=== PATIENT | female | born 1940 | race Hispanic/Latino ===

== ENCOUNTER 2021-07-23 13:49 | Inpatient (IN) | payer MEDICARE ==
[~2021-07-23] VITALS: Ht 157.5 cm; Wt 77.4 kg
[2021-07-23] VITALS (9 sets, daily range): BP systolic 68–148; BP diastolic 31–54
[2021-07-23 16:44] LABS: BASOPHILS % (AUTO) 0.5 % (0.0-5.0); EOSINOPHILS % (AUTO) 3.3 % (0.0-8.0); HEMATOCRIT 33.9 % (36-48); LYMPHOCYTES % (AUTO) 8.5 % (21.0-51.0); MEAN CORPUSCULAR HEMOGLOBIN 28.5 pg (27.0-33.0); MEAN CORPUSCULAR HGB CONC 31.3 g/dL (32.0-36.0); MEAN CORPUSCULAR VOLUME 91.1 fL (79-99); MONOCYTES % (AUTO) 6.7 % (3.0-13.0); NEUTROPHILS % (AUTO) 80.5 % (40.0-77.0); PLATELET COUNT (AUTO) 296 K/uL (130-400); RED BLOOD CELL COUNT(AUTO) 3.72 MIL/uL (4.00-5.50); RED CELL DISTRIBUTION WIDTH 15.9 % (11.0-15.5); WHITE BLOOD COUNT (AUTO) 13.5 K/uL (4.8-10.8)
[2021-07-23 16:56] LABS: INR 1.08 (0.85-1.15); PROTHROMBIN TIME 11.7 SEC (9.6-11.6)
[2021-07-23 16:57] LABS: CREATININE 1.1 mg/dL (0.5-1.5); PARTIAL THROMBOPLASTIN TIME 29.9 SEC (26.3-35.5); POTASSIUM 4.6 mmol/L (3.5-5.1)
[2021-07-23 17:01] LABS: B-TYPE NATRIURETIC PEPTIDE 71 pg/mL (0-100)
[2021-07-23 17:02] LABS: ALBUMIN 2.3 g/dL (3.5-5.0); BILIRUBIN,TOTAL 0.4 mg/dL (0.2-1.0); TOTAL PROTEIN, SERUM 5.9 g/dL (6.0-8.3)
[2021-07-23] MEDS ORDERED: DOPAMINE HCL 400 MG/D5%-WATER 250 ML IV PRN (18:00)
[2021-07-23 18:13] LABS: APPEARANCE,URINE Cloudy (CLEAR); BILIRUBIN,URINE Negative (NEGATIVE); COLOR,URINE Yellow (YELLOW); GLUCOSE, URINE (UA) Negative (NEGATIVE); KETONES,URINE Trace mg/dL (NEGATIVE); LEUKOCYTE ESTERASE ,URINE Moderate (NEGATIVE); NITRATE,URINE Negative (NEGATIVE); OCCULT BLOOD,URINE Small (NEGATIVE); PROTEIN,URINE Negative (NEGATIVE)
[2021-07-23 18:18] LABS: SQUAMOUS EPITHELIAL CELL,UR Few /HPF (0-2)
[2021-07-23 18:19] LABS: BACTERIA,URINE Moderate /HPF (None Seen)
[2021-07-23] MEDS ORDERED: ATOR10 PO (19:47)
[2021-07-23] MEDS ORDERED: METF-444 PO (19:47)
[2021-07-23] MEDS ORDERED: DONE10TA43 PO (19:47)
[2021-07-23] MEDS ORDERED: ACET325T51 PO (19:47)
[2021-07-23] MEDS ORDERED: ESCI20TA38 PO (19:47)
[2021-07-23] MEDS ORDERED: LISI10TA24 PO (19:47)
[2021-07-23] MEDS ORDERED: OLAN5TAB2 PO (19:47)
[2021-07-23] MEDS ORDERED: ONDANSETRON 4MG INJ IV PRN (20:30)
[2021-07-23] MEDS ORDERED: LACTATED RINGERS 1000ML 1,503 ML IV ONE (20:30)
[2021-07-23] MEDS: NOREPINEPHRINE 4MG/NS 250ML 250 ML IV SCH (20:59)
[2021-07-23] MEDS: FAMOTIDINE 20MG TAB PO SCH (21:00)
[2021-07-23] MEDS: INSULIN HUMULIN R 100 UNIT/ML 3ML SQ SCH (21:00)
[2021-07-23] MEDS: ZOSYN 3.375GM +NS 50ML IV SCH (21:30)
[2021-07-23] MEDS ORDERED: ACETAMINOPHEN 325 MG TAB PO PRN (22:00)
[2021-07-24] VITALS (22 sets, daily range): BP systolic 96–152; BP diastolic 33–115
[2021-07-24] MEDS: LACTATED RINGERS 1000ML 1,000 ML IV SCH ×3 (01:09→18:05)
[2021-07-24] MEDS: ACETAMINOPHEN 325 MG TAB PO PRN (03:22)
[2021-07-24] MEDS: ZOSYN 3.375GM +NS 50ML IV SCH ×3 (05:05→21:20)
[2021-07-24] MEDS: INSULIN HUMULIN R 100 UNIT/ML 3ML SQ SCH ×2 (06:39→11:30)
[2021-07-24 07:46] LABS: BASOPHILS % (AUTO) 0.6 % (0.0-5.0); EOSINOPHILS % (AUTO) 4.3 % (0.0-8.0); HEMATOCRIT 31.6 % (36-48); LYMPHOCYTES % (AUTO) 15.3 % (21.0-51.0); MEAN CORPUSCULAR HEMOGLOBIN 28.9 pg (27.0-33.0); MEAN CORPUSCULAR VOLUME 90.5 fL (79-99); MONOCYTES % (AUTO) 9.4 % (3.0-13.0); NEUTROPHILS % (AUTO) 70.1 % (40.0-77.0); PLATELET COUNT (AUTO) 288 K/uL (130-400); RED BLOOD CELL COUNT(AUTO) 3.49 MIL/uL (4.00-5.50); RED CELL DISTRIBUTION WIDTH 15.9 % (11.0-15.5); WHITE BLOOD COUNT (AUTO) 9.9 K/uL (4.8-10.8)
[2021-07-24 08:08] LABS: MAGNESIUM 1.6 mg/dL (1.80-2.40); PHOSPHORUS 3.1 mg/dL (2.5-4.9)
[2021-07-24 08:11] LABS: HEMOGLOBIN A1C 5.9 % (4.0-6.0)
[2021-07-24] MEDS: FAMOTIDINE 20MG TAB PO SCH (09:00)
[2021-07-24] MEDS: ENOXAPARIN SODIUM 30 MG/0.3 ML SQ SCH (09:00)
[2021-07-24] MEDS: NOREPINEPHRINE 4MG/NS 250ML 250 ML IV SCH (11:04)
[2021-07-24] MEDS: MIDODRINE HCL 5 MG TABLET PO SCH ×2 (15:30→21:20)
[2021-07-24] MEDS ORDERED: LACTULOSE 20 GM/30 ML UDCUP PO ONE (17:30)
[2021-07-24] MEDS: DONEPEZIL HCL 5 MG TAB PO SCH (21:20)
[2021-07-24] MEDS: ATORVASTATIN 10 MG TABLET PO SCH (21:20)
[2021-07-25] VITALS (36 sets, daily range): BP systolic 65–146; BP diastolic 37–118
[2021-07-25] MEDS ORDERED: TRAZODONE HCL 50 MG TAB ONE (01:37)
[2021-07-25] MEDS: LACTATED RINGERS 1000ML 1,000 ML IV SCH ×2 (06:00→17:25)
[2021-07-25] MEDS: ZOSYN 3.375GM +NS 50ML IV SCH (06:00)
[2021-07-25 06:22] LABS: HEMATOCRIT 31.9 % (36-48); MEAN CORPUSCULAR HEMOGLOBIN 28.6 pg (27.0-33.0); MEAN CORPUSCULAR HGB CONC 31.7 g/dL (32.0-36.0); MEAN CORPUSCULAR VOLUME 90.4 fL (79-99); RED BLOOD CELL COUNT(AUTO) 3.53 MIL/uL (4.00-5.50); RED CELL DISTRIBUTION WIDTH 16.2 % (11.0-15.5); WHITE BLOOD COUNT (AUTO) 8.6 K/uL (4.8-10.8)
[2021-07-25 06:51] LABS: % IRON SATURATION 19.8 % (22-44)
[2021-07-25 07:03] LABS: ALBUMIN 2.2 g/dL (3.5-5.0); PHOSPHORUS 2.8 mg/dL (2.5-4.9); POTASSIUM 4.2 mmol/L (3.5-5.1)
[2021-07-25 07:41] LABS: MAGNESIUM 1.5 mg/dL (1.80-2.40)
[2021-07-25] MEDS: MIDODRINE HCL 5 MG TABLET PO SCH ×3 (11:23→22:55)
[2021-07-25] MEDS: FAMOTIDINE 20MG TAB PO SCH (11:23)
[2021-07-25] MEDS: ENOXAPARIN SODIUM 30 MG/0.3 ML SQ SCH (11:24)
[2021-07-25] MEDS: MEROPENEM 1 GM VIAL IVP SCH ×2 (11:25→17:25)
[2021-07-25] MEDS: HALOPERIDOL INJ 5 MG/ML VIAL IV PRN ×2 (14:21→22:02)
[2021-07-25] MEDS: ATORVASTATIN 10 MG TABLET PO SCH (22:54)
[2021-07-25] MEDS: MAGNESIUM 2GM PREMIX 50ML 50 ML IV SCH (22:55)
[2021-07-25] MEDS: DONEPEZIL HCL 5 MG TAB PO SCH (22:55)
[2021-07-26] MEDS: MEROPENEM 1 GM VIAL IVP SCH ×3 (01:28→17:48)
[2021-07-26 03:00] VITALS: BP 147/62
[2021-07-26 07:30] VITALS: BP 139/35
[2021-07-26 08:45] LABS: HEMATOCRIT 29.7 % (36-48); MEAN CORPUSCULAR HGB CONC 31.6 g/dL (32.0-36.0); MEAN CORPUSCULAR VOLUME 91.7 fL (79-99); RED BLOOD CELL COUNT(AUTO) 3.24 MIL/uL (4.00-5.50); RED CELL DISTRIBUTION WIDTH 16.5 % (11.0-15.5); WHITE BLOOD COUNT (AUTO) 6.4 K/uL (4.8-10.8)
[2021-07-26] MEDS: LACTATED RINGERS 1000ML 1,000 ML IV SCH (08:55)
[2021-07-26 09:00] LABS: BILIRUBIN,TOTAL 0.4 mg/dL (0.2-1.0); CREATININE 0.9 mg/dL (0.5-1.5); POTASSIUM 4.1 mmol/L (3.5-5.1); TOTAL PROTEIN, SERUM 5.2 g/dL (6.0-8.3)
[2021-07-26] MEDS: FAMOTIDINE 20MG TAB PO SCH (10:18)
[2021-07-26] MEDS: MIDODRINE HCL 5 MG TABLET PO SCH ×3 (10:18→21:09)
[2021-07-26] MEDS: ENOXAPARIN SODIUM 30 MG/0.3 ML SQ SCH (10:19)
[2021-07-26 11:00] VITALS: BP 145/62
[2021-07-26 15:58] VITALS: BP 124/49
[2021-07-26 20:00] VITALS: BP 115/64
[2021-07-26] MEDS ORDERED: DEXTROSE 50%-WATER 50 ML DISP.SYRIN IV ONE (20:55)
[2021-07-26] MEDS: DONEPEZIL HCL 5 MG TAB PO SCH (21:09)
[2021-07-26] MEDS: ATORVASTATIN 10 MG TABLET PO SCH (21:09)
[2021-07-26] MEDS ORDERED: DEXTROSE 5%-WATER 1,000 ML IV ONE (22:46)
[2021-07-26] MEDS ORDERED: DEXTROSE 50%-WATER 50 ML DISP.SYRIN IV PRN (23:00)
[2021-07-26] MEDS: DEXTROSE 5%-WATER 1,000 ML IV SCH (23:00)
[2021-07-26] MEDS ORDERED: GLUCAGON 1MG KIT 1 MG ML IM PRN (23:00)
[2021-07-27] VITALS: BP 119/54
[2021-07-27] MEDS: MEROPENEM 1 GM VIAL IVP SCH ×3 (01:42→16:33)
[2021-07-27 04:00] VITALS: BP 117/55
[2021-07-27 05:07] LABS: BASOPHILS % (AUTO) 0.7 % (0.0-5.0); EOSINOPHILS % (AUTO) 12.8 % (0.0-8.0); HEMATOCRIT 32.2 % (36-48); LYMPHOCYTES % (AUTO) 16.3 % (21.0-51.0); MEAN CORPUSCULAR HEMOGLOBIN 28.9 pg (27.0-33.0); MEAN CORPUSCULAR HGB CONC 31.4 g/dL (32.0-36.0); MONOCYTES % (AUTO) 9.4 % (3.0-13.0); NEUTROPHILS % (AUTO) 60.4 % (40.0-77.0); PLATELET COUNT (AUTO) 267 K/uL (130-400); RED CELL DISTRIBUTION WIDTH 16.6 % (11.0-15.5); WHITE BLOOD COUNT (AUTO) 6.8 K/uL (4.8-10.8)
[2021-07-27 05:27] LABS: CREATININE 0.9 mg/dL (0.5-1.5); POTASSIUM 3.6 mmol/L (3.5-5.1)
[2021-07-27 08:00] VITALS: BP 127/66
[2021-07-27] MEDS: FAMOTIDINE 20MG TAB PO SCH (09:45)
[2021-07-27] MEDS: MIDODRINE HCL 5 MG TABLET PO SCH ×3 (09:45→21:36)
[2021-07-27] MEDS: ENOXAPARIN SODIUM 30 MG/0.3 ML SQ SCH (09:46)
[2021-07-27 12:00] VITALS: BP 120/55
[2021-07-27 16:00] VITALS: BP 123/56
[2021-07-27] MEDS: DEXTROSE 5%-WATER 1,000 ML IV SCH (16:34)
[2021-07-27 19:46] VITALS: BP 104/41
[2021-07-27] MEDS: ATORVASTATIN 10 MG TABLET PO SCH (21:36)
[2021-07-27] MEDS: DONEPEZIL HCL 5 MG TAB PO SCH (21:36)
[2021-07-28] VITALS (8 sets, daily range): BP systolic 96–115; BP diastolic 38–95
[2021-07-28] MEDS: MEROPENEM 1 GM VIAL IVP SCH ×3 (01:08→17:02)
[2021-07-28 05:05] LABS: BASOPHILS % (AUTO) 0.4 % (0.0-5.0); HEMATOCRIT 29.5 % (36-48); LYMPHOCYTES % (AUTO) 13.6 % (21.0-51.0); MEAN CORPUSCULAR HGB CONC 32.5 g/dL (32.0-36.0); MEAN CORPUSCULAR VOLUME 89.1 fL (79-99); NEUTROPHILS % (AUTO) 67.6 % (40.0-77.0); PLATELET COUNT (AUTO) 313 K/uL (130-400); RED BLOOD CELL COUNT(AUTO) 3.31 MIL/uL (4.00-5.50); RED CELL DISTRIBUTION WIDTH 16.8 % (11.0-15.5); WHITE BLOOD COUNT (AUTO) 8.4 K/uL (4.8-10.8)
[2021-07-28 05:23] LABS: CREATININE 0.8 mg/dL (0.5-1.5); POTASSIUM 3.7 mmol/L (3.5-5.1)
[2021-07-28] MEDS: MIDODRINE HCL 5 MG TABLET PO SCH ×3 (09:00→21:13)
[2021-07-28] MEDS: FAMOTIDINE 20MG TAB PO SCH (10:41)
[2021-07-28] MEDS: ENOXAPARIN SODIUM 30 MG/0.3 ML SQ SCH (10:42)
[2021-07-28] MEDS: DONEPEZIL HCL 5 MG TAB PO SCH (21:13)
[2021-07-28] MEDS: ATORVASTATIN 10 MG TABLET PO SCH (21:13)
[2021-07-29] VITALS (7 sets, daily range): BP systolic 90–143; BP diastolic 44–64
[2021-07-29] MEDS: MEROPENEM 1 GM VIAL IVP SCH ×3 (01:39→16:14)
[2021-07-29 07:23] LABS: BASOPHILS % (AUTO) 0.3 % (0.0-5.0); EOSINOPHILS % (AUTO) 4.2 % (0.0-8.0); HEMATOCRIT 30.7 % (36-48); MEAN CORPUSCULAR HEMOGLOBIN 28.7 pg (27.0-33.0); MEAN CORPUSCULAR HGB CONC 31.9 g/dL (32.0-36.0); MEAN CORPUSCULAR VOLUME 89.8 fL (79-99); MONOCYTES % (AUTO) 7.1 % (3.0-13.0); PLATELET COUNT (AUTO) 270 K/uL (130-400); RED BLOOD CELL COUNT(AUTO) 3.42 MIL/uL (4.00-5.50); WHITE BLOOD COUNT (AUTO) 11.2 K/uL (4.8-10.8)
[2021-07-29 07:35] LABS: CREATININE 0.7 mg/dL (0.5-1.5); POTASSIUM 3.7 mmol/L (3.5-5.1)
[2021-07-29] MEDS: FAMOTIDINE 20MG TAB PO SCH (09:36)
[2021-07-29] MEDS: ENOXAPARIN SODIUM 30 MG/0.3 ML SQ SCH (09:36)
[2021-07-29] MEDS: MIDODRINE HCL 5 MG TABLET PO SCH ×3 (09:36→20:15)
[2021-07-29] MEDS ORDERED: ENOXAPARIN SODIUM 40 MG/0.4 ML SYRINGE SQ ONE (16:30)
[2021-07-29] MEDS: ENOXAPARIN SODIUM 80 MG/0.8 ML SQ SCH (20:15)
[2021-07-29] MEDS: ATORVASTATIN 10 MG TABLET PO SCH (20:15)
[2021-07-29] MEDS: DONEPEZIL HCL 5 MG TAB PO SCH (20:15)
[2021-07-29] MEDS: ACETAMINOPHEN 325 MG TAB PO PRN (20:16)
[2021-07-30] MEDS: MEROPENEM 1 GM VIAL IVP SCH ×3 (00:02→18:07)
[2021-07-30 01:21] VITALS: BP_SYST 143
[2021-07-30] MEDS ORDERED: HALOPERIDOL INJ 5 MG/ML VIAL IV PRN (02:00)
[2021-07-30 04:09] VITALS: BP 126/51
[2021-07-30 06:38] LABS: BASOPHILS % (AUTO) 0.4 % (0.0-5.0); EOSINOPHILS % (AUTO) 7.5 % (0.0-8.0); HEMATOCRIT 33.6 % (36-48); LYMPHOCYTES % (AUTO) 10.5 % (21.0-51.0); MEAN CORPUSCULAR HEMOGLOBIN 28.5 pg (27.0-33.0); MEAN CORPUSCULAR HGB CONC 31.8 g/dL (32.0-36.0); MEAN CORPUSCULAR VOLUME 89.6 fL (79-99); MONOCYTES % (AUTO) 6.5 % (3.0-13.0); NEUTROPHILS % (AUTO) 74.7 % (40.0-77.0); PLATELET COUNT (AUTO) 299 K/uL (130-400); RED BLOOD CELL COUNT(AUTO) 3.75 MIL/uL (4.00-5.50); RED CELL DISTRIBUTION WIDTH 17.1 % (11.0-15.5)
[2021-07-30 06:56] LABS: ALBUMIN 1.9 g/dL (3.5-5.0); BILIRUBIN,TOTAL 0.4 mg/dL (0.2-1.0); CREATININE 0.8 mg/dL (0.5-1.5); POTASSIUM 3.8 mmol/L (3.5-5.1); TOTAL PROTEIN, SERUM 5.4 g/dL (6.0-8.3)
[2021-07-30 08:00] VITALS: BP 127/41
[2021-07-30] MEDS: FAMOTIDINE 20MG TAB PO SCH (10:31)
[2021-07-30] MEDS: MIDODRINE HCL 5 MG TABLET PO SCH ×3 (10:31→21:44)
[2021-07-30] MEDS: ENOXAPARIN SODIUM 80 MG/0.8 ML SQ SCH ×2 (10:31→21:45)
[2021-07-30 11:45] VITALS: BP 129/56
[2021-07-30 16:00] VITALS: BP 119/46
[2021-07-30 19:00] VITALS: BP 124/49
[2021-07-30] MEDS: DONEPEZIL HCL 5 MG TAB PO SCH (21:44)
[2021-07-30] MEDS: ATORVASTATIN 10 MG TABLET PO SCH (21:44)
[2021-07-31] VITALS: BP 96/41
[2021-07-31] MEDS: MEROPENEM 1 GM VIAL IVP SCH ×3 (01:51→16:51)
[2021-07-31] MEDS ORDERED: ACETAMINOPHEN WITH CODEINE 1 TAB TAB ONE (01:55)
[2021-07-31 04:00] VITALS: BP 126/54
[2021-07-31 05:49] LABS: BASOPHILS % (AUTO) 0.3 % (0.0-5.0); EOSINOPHILS % (AUTO) 7.8 % (0.0-8.0); HEMATOCRIT 33.9 % (36-48); LYMPHOCYTES % (AUTO) 10.1 % (21.0-51.0); MEAN CORPUSCULAR HEMOGLOBIN 28.8 pg (27.0-33.0); MEAN CORPUSCULAR HGB CONC 31.6 g/dL (32.0-36.0); MEAN CORPUSCULAR VOLUME 91.1 fL (79-99); MONOCYTES % (AUTO) 6.3 % (3.0-13.0); NEUTROPHILS % (AUTO) 75.2 % (40.0-77.0); PLATELET COUNT (AUTO) 290 K/uL (130-400); RED BLOOD CELL COUNT(AUTO) 3.72 MIL/uL (4.00-5.50); RED CELL DISTRIBUTION WIDTH 17.2 % (11.0-15.5); WHITE BLOOD COUNT (AUTO) 11.7 K/uL (4.8-10.8)
[2021-07-31 06:31] LABS: CREATININE 0.8 mg/dL (0.5-1.5); MAGNESIUM 1.5 mg/dL (1.80-2.40)
[2021-07-31] MEDS: MAGNESIUM 2GM PREMIX 50ML 50 ML IV SCH (07:00)
[2021-07-31 07:47] VITALS: BP 124/48
[2021-07-31] MEDS ORDERED: CITALOPRAM 20 MG TABLET PO SCH (09:00)
[2021-07-31] MEDS ORDERED: OLANZAPINE ODT 5 MG TAB PO SCH (09:00)
[2021-07-31] MEDS: FAMOTIDINE 20MG TAB PO SCH (09:08)
[2021-07-31] MEDS: MIDODRINE HCL 5 MG TABLET PO SCH ×3 (09:09→20:16)
[2021-07-31] MEDS ORDERED: OLANZAPINE 5 MG TAB PO SCH (10:30)
[2021-07-31] MEDS: APIXABAN 5 MG TABLET PO SCH ×2 (10:42→20:15)
[2021-07-31 12:07] VITALS: BP 128/47
[2021-07-31 16:07] VITALS: BP 114/40
[2021-07-31 19:00] VITALS: BP 119/37
[2021-07-31] MEDS: ATORVASTATIN 10 MG TABLET PO SCH (20:15)
[2021-07-31] MEDS: DONEPEZIL HCL 5 MG TAB PO SCH (20:16)
== END 2021-07-31 20:45 | DRG 871 ==
LOC: EDH 13:49 → EDHIP 20:19 → 2CH 07-25 08:41 → 4CH 07-25 21:41
PROVIDERS: ADMIT Internal Medicine; ATTEND Internal Medicine
DX: A41.50 Gram-negative sepsis, unspecified (principal); R65.21 Severe sepsis with septic shock; E43 Unspecified severe protein-calorie malnutrition; N30.00 Acute cystitis without hematuria; G93.40 Encephalopathy, unspecified; D68.59 Other primary thrombophilia; Z16.24 Resistance to multiple antibiotics; Z16.12 Extended spectrum beta lactamase (ESBL) resistance; I82.B11 Acute embolism and thrombosis of right subclavian vein; I10 Essential (primary) hypertension; E86.1 Hypovolemia; F32.9 Major depressive disorder, single episode, unspecified; G30.9 Alzheimer's disease, unspecified; F02.80 Dementia in other diseases classified elsewhere, unspecified severity, without behavioral disturbance, psychotic disturbance, mood disturbance, and anxiety; F20.9 Schizophrenia, unspecified; E78.00 Pure hypercholesterolemia, unspecified; E78.5 Hyperlipidemia, unspecified; E11.649 Type 2 diabetes mellitus with hypoglycemia without coma; D64.9 Anemia, unspecified; E83.42 Hypomagnesemia; R53.81 Other malaise; B96.20 Unspecified Escherichia coli [E. coli] as the cause of diseases classified elsewhere; E66.9 Obesity, unspecified; Z68.31 Body mass index [BMI] 31.0-31.9, adult; Z20.822 Contact with and (suspected) exposure to COVID-19; Z74.01 Bed confinement status; Z79.01 Long term (current) use of anticoagulants; Z83.3 Family history of diabetes mellitus
CPT/HCPCS: 36415; 70450; 71045; 76770; 80048; 80053; 80061; 81001; 82040; 82550; 82607; 82728; 82746; 82948; 83036; 83540; 83550; 83605; 83735; 83880; 84100; 84145; 84484; 85025; 85027; 85610; 85730; 86140; 87040; 87077; 87088; 87186; 87635; 92526; 92610; 93005; 93970; 97039; G0378; J1630; J1650; J2185; J2543; J3475; J3490; J7070; J7120

== ENCOUNTER 2023-08-08 11:29 | Emergency (ER) | payer MEDICARE ==
[~2023-08-08] VITALS: Ht 162.6 cm; Wt 65.8 kg
[~2023-08-08 11:29] MED LIST: ACET325C6 PO; ACET325T51 PO; ATOR10TA69 PO; DIVA250T4 PO; FAMO-136 PO; HYDR28.32 TP; IRON TABLET PO; MEMA10TA11 PO; MIDO5TAB4 PO; MIRT-118 PO; MULT-1367 PO
[2023-08-08] MEDS ORDERED: DIATR MEGLU/DIATRIZOATE SODIUM 30 ML BOTTLE ONE (11:52)
[2023-08-08 13:26] VITALS: BP 152/133; PULSE 80; RESP 16; O2SAT 100
== END 2023-08-08 14:01 | disposition home or self-care (01) ==
LOC: EDH 11:29
DX: K94.23 Gastrostomy malfunction (principal); E11.9 Type 2 diabetes mellitus without complications; F03.90 Unspecified dementia, unspecified severity, without behavioral disturbance, psychotic disturbance, mood disturbance, and anxiety; K21.9 Gastro-esophageal reflux disease without esophagitis; F41.9 Anxiety disorder, unspecified; F20.9 Schizophrenia, unspecified
CPT/HCPCS: 99284; 43762; 74018; Q9963

== ENCOUNTER 2023-12-28 12:17 | Inpatient (IN) | payer MEDICARE ==
[~2023-12-28] VITALS: Ht 154.9 cm; Wt 76.7 kg
[2023-12-28 12:53] LABS: BASOPHILS # (AUTO) 0.04 K/uL (0.00-0.20); BASOPHILS % (AUTO) 0.3 % (0.0-5.0); EOSINOPHILS # (AUTO) 0.23 K/uL (0.00-0.70); EOSINOPHILS % (AUTO) 1.5 % (0.0-8.0); HEMATOCRIT 39.4 % (36-48); IMMATURE GRANULOCYTE ABSOLUTE 0.14 K/uL (0-1); LYMPHOCYTES # (AUTO) 1.6 K/uL (1.0-4.8); LYMPHOCYTES % (AUTO) 10.4 % (21.0-51.0); MEAN CORPUSCULAR HEMOGLOBIN 30.3 pg (27.0-33.0); MEAN CORPUSCULAR HGB CONC 31.2 g/dL (32.0-36.0); MONOCYTES # (AUTO) 0.7 K/uL (0.1-1.0); MONOCYTES % (AUTO) 4.6 % (3.0-13.0); NEUTROPHILS # (AUTO) 12.8 K/uL (1.8-7.7); NEUTROPHILS % (AUTO) 82.3 % (40.0-77.0); NUCLEATED RED BLOOD CELLS 0.3 % (0.0-0.19); PLATELET COUNT (AUTO) 275 K/uL (130-400); RED BLOOD CELL COUNT(AUTO) 4.06 MIL/uL (4.00-5.50); RED CELL DISTRIBUTION WIDTH 15.9 % (11.0-15.5); WHITE BLOOD COUNT (AUTO) 15.5 K/uL (4.8-10.8)
[2023-12-28 13:06] LABS: INR 0.98 (0.85-1.15); PROTHROMBIN TIME 11.4 SEC (9.6-11.6)
[2023-12-28 13:07] LABS: PARTIAL THROMBOPLASTIN TIME 25.7 SEC (26.3-35.5)
[2023-12-28 13:08] LABS: ALBUMIN 1.8 g/dL (3.5-5.0); BILIRUBIN,TOTAL 0.4 mg/dL (0.2-1.0); CREATININE 1.2 mg/dL (0.5-1.5); POTASSIUM 3.7 mmol/L (3.5-5.1); TOTAL PROTEIN, SERUM 6.2 g/dL (6.0-8.3)
[2023-12-28] MEDS: 0.9%NACL 1000ML 1,000 ML IV ONE (13:13)
[2023-12-28] MEDS: ZOSYN 3.375GM +NS 50ML IV ONE (16:22)
[2023-12-28] MEDS: VANCOMYCIN KIT 1 GM/250 ML IV.KIT IV ONE (16:23)
[2023-12-28] MEDS: LACTATED RINGERS 1000ML 1,000 ML IV SCH ×2 (16:51→18:58)
[2023-12-28] MEDS ORDERED: GLUCAGON 1MG KIT 1 MG ML IM PRN (17:00)
[2023-12-28] MEDS ORDERED: ONDANSETRON 4MG INJ IV PRN (17:00)
[2023-12-28] MEDS ORDERED: ACETAMINOPHEN 325 MG TAB PO PRN (17:00)
[2023-12-28] MEDS ORDERED: DEXTROSE 50%-WATER 50 ML DISP.SYRIN IV PRN (17:00)
[2023-12-28 18:23] LABS: HEMOGLOBIN A1C 8.3 % (4.0-6.0)
[2023-12-28 18:45] LABS: ABG BASE EXCESS 9.1 mmol/L (-2.0-3.0); ABG HCO3 33.1 mmol/L (21.0-28.0); ABG OXYGEN SATURATION 99.9 % (95.0-99.0); ABG PCO2 42 mmHg (32-45); ABG PH 7.511 (7.35-7.450); DEVICE COMMENT RR; PO2, ARTERIAL BG 471.1 mmHg (83.0-108.0); VENT MODE, BG NONR (ROOM AIR)
[2023-12-28] MEDS: INSULIN HUMULIN R 100 UNIT/ML 3ML SQ SCH (21:00)
[2023-12-28] MEDS: FAMOTIDINE 20MG VIAL IV SCH (21:10)
[2023-12-28] MEDS: HEPARIN 5,000 UNIT VIAL SQ SCH (21:10)
[2023-12-28 22:01] LABS: APPEARANCE,URINE TURBID (CLEAR); BILIRUBIN,URINE NEGATIVE (NEGATIVE); COLOR,URINE YELLOW (YELLOW); GLUCOSE, URINE (UA) NEGATIVE (NEGATIVE); KETONES,URINE NEGATIVE (NEGATIVE); LEUKOCYTE ESTERASE ,URINE 500 Leu/uL (NEGATIVE); NITRATE,URINE 1+ (NEGATIVE); OCCULT BLOOD,URINE MODERATE (NEGATIVE); PROTEIN,URINE 100 mg/dL (NEGATIVE); UROBILINOGEN,URINE 0.2 mg/dL (0.2-1.0)
[2023-12-28 22:02] LABS: ADD UA MICROSCOPIC YES
[2023-12-28 22:06] LABS: BACTERIA,URINE MOD /HPF (None Seen); MUCUS,URINE RARE LPF (None Seen); RBC,URINE 26-50 /HPF (0-1); SQUAMOUS EPITHELIAL CELL,UR FEW /HPF (0-2); TRIPLE PHOSPHATE CRYSTAL,UR FEW /LPF (None Seen); UNCLASSIFIED CRYSTAL 11 /HPF (None Seen); WBC CLUMP FEW /HPF (0-1); WBC,URINE 26-50 /HPF (0-1); YEAST,URINE BUDDING FEW /HPF (None Seen)
[2023-12-28] MEDS ORDERED: MAGN400T51 PEG (23:22)
[2023-12-28] MEDS ORDERED: DIVA125T2 PEG (23:22)
[2023-12-28] MEDS ORDERED: MEMA10TA55 PEG (23:22)
[2023-12-28] MEDS ORDERED: FERR220E10 PEG (23:22)
[2023-12-28] MEDS ORDERED: POLY17PO4 PEG (23:22)
[2023-12-28] MEDS ORDERED: ASCO500P18 PEG (23:22)
[2023-12-28] MEDS ORDERED: IPRA3AMP24 IH (23:22)
[2023-12-28] MEDS ORDERED: ACET-2247 PEG ×2 (23:22)
[2023-12-28] MEDS ORDERED: SERT50TA PEG (23:22)
[2023-12-28] MEDS ORDERED: GUAI100S13 PEG (23:22)
[2023-12-28] MEDS ORDERED: SENN8.6T32 PEG (23:22)
[2023-12-28] MEDS ORDERED: LACT10SO5 PEG (23:22)
[2023-12-28] MEDS ORDERED: INSU3INS3 SQ (23:22)
[2023-12-28] MEDS ORDERED: FAMO20TA8 PEG (23:22)
[2023-12-28] MEDS ORDERED: MULT9LIQ6 PEG (23:22)
[2023-12-28] MEDS ORDERED: GUAI5SYR PEG (23:22)
[2023-12-28] MEDS ORDERED: INSU100C14 SQ (23:22)
[2023-12-29] VITALS (8 sets, daily range): BP systolic 112–145; BP diastolic 49–79; PULSE 65–82; RESP 18–22; O2SAT 100
[2023-12-29] MEDS: ZOSYN 3.375GM+NS 50ML 50 ML IV SCH (00:05)
[2023-12-29 11:20] LABS: POTASSIUM 3.5 mmol/L (3.5-5.1)
[2023-12-29 15:22] LABS: INR 0.98 (0.85-1.15); PROTHROMBIN TIME 11.4 SEC (9.6-11.6)
[2023-12-29 15:24] LABS: PARTIAL THROMBOPLASTIN TIME 29.9 SEC (26.3-35.5)
[2023-12-29] MEDS: DEXTROSE 5%-WATER 1,000 ML IV SCH (15:43)
[2023-12-29] MEDS: ENOXAPARIN SODIUM 80 MG/0.8 ML SQ SCH (22:18)
[2023-12-29 23:48] LABS: INFLUENZA TYPE A Negative For Type A (NEGATIVE); INFLUENZA TYPE B Negative For Type B (NEGATIVE)
[2023-12-29 23:49] LABS: SARS-CoV-2, RNA, NAAT NEGATIVE SARS CoV-2 (NEGATIVE)
[2023-12-30] VITALS (9 sets, daily range): BP systolic 112–164; BP diastolic 49–84; PULSE 68–84; RESP 16–18; O2SAT 98–100
[2023-12-30] MEDS: INSULIN HUMULIN R 100 UNIT/ML 3ML SQ SCH (05:00)
[2023-12-30 06:19] LABS: HEMATOCRIT 33.4 % (36-48); MEAN CORPUSCULAR HEMOGLOBIN 29.8 pg (27.0-33.0); MEAN CORPUSCULAR HGB CONC 30.8 g/dL (32.0-36.0); MEAN CORPUSCULAR VOLUME 96.5 fL (79-99); PLATELET COUNT (AUTO) 230 K/uL (130-400); RED BLOOD CELL COUNT(AUTO) 3.46 MIL/uL (4.00-5.50); RED CELL DISTRIBUTION WIDTH 15.6 % (11.0-15.5); WHITE BLOOD COUNT (AUTO) 10.8 K/uL (4.8-10.8)
[2023-12-30 06:33] LABS: ALBUMIN 1.6 g/dL (3.5-5.0); BILIRUBIN,TOTAL 0.7 mg/dL (0.2-1.0); CREATININE 0.8 mg/dL (0.5-1.5); POTASSIUM 3.2 mmol/L (3.5-5.1); TOTAL PROTEIN, SERUM 5.7 g/dL (6.0-8.3)
[2023-12-30] MEDS ORDERED: POLYETHYLENE GLYCOL 3350 17 GM POWD.PACK PEG PRN (10:30)
[2023-12-30] MEDS: POTASSIUM CHLORIDE 10% ELIXIR 20 MEQ/15 ML UDCUP ONE ×2 (10:46→16:27)
[2023-12-30] MEDS: CEFTRIAXONE 2GM VIAL IVPB SCH (16:27)
[2023-12-30] MEDS ORDERED: NON-FORMULARY MEDICATION 1 EACH (Memantine HCl 10 MG) PEG SCH (21:00)
[2023-12-30] MEDS ORDERED: NON-FORMULARY MEDICATION 1 EACH (Ascorbic Acid (Vitamin C) 500 MG) PEG SCH (21:00)
[2023-12-30] MEDS: ASCORBIC ACID 500 MG TAB PEG SCH (21:24)
[2023-12-30] MEDS: SENNOSIDES 8.6 MG TABLET PEG SCH (21:24)
[2023-12-30] MEDS: MEMANTINE HCL 5 MG TABLET PEG SCH (21:25)
[2023-12-31] VITALS (8 sets, daily range): BP systolic 108–133; BP diastolic 45–80; PULSE 63–75; RESP 15–18; O2SAT 100
[2023-12-31 05:24] LABS: HEMATOCRIT 30.2 % (36-48); MEAN CORPUSCULAR HEMOGLOBIN 30.4 pg (27.0-33.0); MEAN CORPUSCULAR HGB CONC 31.5 g/dL (32.0-36.0); MEAN CORPUSCULAR VOLUME 96.8 fL (79-99); RED BLOOD CELL COUNT(AUTO) 3.12 MIL/uL (4.00-5.50); RED CELL DISTRIBUTION WIDTH 15.6 % (11.0-15.5); WHITE BLOOD COUNT (AUTO) 9.1 K/uL (4.8-10.8)
[2023-12-31 05:50] LABS: ALBUMIN 1.5 g/dL (3.5-5.0); BILIRUBIN,TOTAL 0.3 mg/dL (0.2-1.0); CREATININE 0.8 mg/dL (0.5-1.5); POTASSIUM 3.4 mmol/L (3.5-5.1); TOTAL PROTEIN, SERUM 5.3 g/dL (6.0-8.3)
[2023-12-31 06:00] LABS: MAGNESIUM 1.9 mg/dL (1.80-2.40)
[2023-12-31] MEDS ORDERED: FERROUS FUM PEG SCH (09:00)
[2023-12-31] MEDS ORDERED: FERROUS SULFATE 220 MG PEG SCH (09:00)
[2023-12-31] MEDS ORDERED: MAGNESIUM OXIDE 400 MG PEG SCH (09:00)
[2023-12-31] MEDS: MULTIVITS W MIN PEG SCH (09:00)
[2023-12-31] MEDS ORDERED: [UNRECOGNIZED DRUG - OTHER] PEG SCH (09:00)
[2023-12-31] MEDS ORDERED: NON-FORMULARY MEDICATION 1 EACH (Lactulose 30 ML) PEG SCH (09:00)
[2023-12-31] MEDS ORDERED: MULTIVIT PEG SCH (09:00)
[2023-12-31] MEDS ORDERED: MINERALS PEG SCH (09:00)
[2023-12-31] MEDS: FERROUS GLUC PEG SCH (09:00)
[2023-12-31] MEDS: LACTULOSE 20 GM/30 ML UDCUP PEG SCH (10:07)
[2023-12-31] MEDS: FERROUS SULFATE 300 MG/5 ML LIQ UDCUP PEG SCH (10:07)
[2023-12-31] MEDS: SERTRALINE HCL 50 MG TABLET PEG SCH (10:08)
[2023-12-31] MEDS: FAMOTIDINE 20MG TAB PEG SCH (10:08)
[2023-12-31] MEDS: KCL 20 MEQ ERTAB PO ONE (15:55)
[2024-01-01] VITALS (7 sets, daily range): BP systolic 103–136; BP diastolic 42–69; PULSE 65–75; RESP 16–20; O2SAT 99–100
[2024-01-01 04:14] LABS: HEMATOCRIT 28.9 % (36-48); MEAN CORPUSCULAR HEMOGLOBIN 30.4 pg (27.0-33.0); MEAN CORPUSCULAR HGB CONC 32.5 g/dL (32.0-36.0); MEAN CORPUSCULAR VOLUME 93.5 fL (79-99); NUCLEATED RED BLOOD CELLS 0.2 % (0.0-0.19); RED BLOOD CELL COUNT(AUTO) 3.09 MIL/uL (4.00-5.50); RED CELL DISTRIBUTION WIDTH 15.7 % (11.0-15.5); WHITE BLOOD COUNT (AUTO) 9.5 K/uL (4.8-10.8)
[2024-01-01 04:29] LABS: ALBUMIN 1.6 g/dL (3.5-5.0); BILIRUBIN,TOTAL 0.2 mg/dL (0.2-1.0); CREATININE 0.8 mg/dL (0.5-1.5); POTASSIUM 3.7 mmol/L (3.5-5.1); TOTAL PROTEIN, SERUM 5.4 g/dL (6.0-8.3)
[2024-01-02] VITALS (7 sets, daily range): BP systolic 102–138; BP diastolic 59–71; PULSE 59–80; RESP 18–22; O2SAT 100
[2024-01-02 04:18] LABS: ALBUMIN 1.6 g/dL (3.5-5.0); BILIRUBIN,TOTAL 0.2 mg/dL (0.2-1.0); CREATININE 0.7 mg/dL (0.5-1.5); POTASSIUM 3.5 mmol/L (3.5-5.1); TOTAL PROTEIN, SERUM 5.6 g/dL (6.0-8.3)
[2024-01-02 04:59] LABS: HEMATOCRIT 28.9 % (36-48); MEAN CORPUSCULAR HEMOGLOBIN 30.1 pg (27.0-33.0); MEAN CORPUSCULAR HGB CONC 32.2 g/dL (32.0-36.0); MEAN CORPUSCULAR VOLUME 93.5 fL (79-99); NUCLEATED RED BLOOD CELLS 0.2 % (0.0-0.19); RED BLOOD CELL COUNT(AUTO) 3.09 MIL/uL (4.00-5.50); RED CELL DISTRIBUTION WIDTH 16.1 % (11.0-15.5); WHITE BLOOD COUNT (AUTO) 10.4 K/uL (4.8-10.8)
[2024-01-02] MEDS: KCL 20 MEQ ERTAB PO ONE (10:59)
[2024-01-03] VITALS (11 sets, daily range): BP systolic 129–161; BP diastolic 66–99; PULSE 71–84; RESP 18; O2SAT 96–100
[2024-01-03 05:31] LABS: HEMATOCRIT 29.2 % (36-48); MEAN CORPUSCULAR HEMOGLOBIN 30.9 pg (27.0-33.0); MEAN CORPUSCULAR HGB CONC 32.2 g/dL (32.0-36.0); MEAN CORPUSCULAR VOLUME 96.1 fL (79-99); NUCLEATED RED BLOOD CELLS 0.2 % (0.0-0.19); RED BLOOD CELL COUNT(AUTO) 3.04 MIL/uL (4.00-5.50); RED CELL DISTRIBUTION WIDTH 16.7 % (11.0-15.5); WHITE BLOOD COUNT (AUTO) 9.1 K/uL (4.8-10.8)
[2024-01-03 05:48] LABS: ALBUMIN 1.6 g/dL (3.5-5.0); BILIRUBIN,TOTAL 0.2 mg/dL (0.2-1.0); CREATININE 0.6 mg/dL (0.5-1.5); MAGNESIUM 1.9 mg/dL (1.80-2.40); POTASSIUM 3.7 mmol/L (3.5-5.1); TOTAL PROTEIN, SERUM 5.7 g/dL (6.0-8.3)
[2024-01-03] MEDS ORDERED: KCL 20 MEQ ERTAB PO PRN (11:30)
[2024-01-03] MEDS: VALPROATE SOD 250 MG/5 ML (PO) PEG ONE (11:49)
[2024-01-03] MEDS: POTASSIUM CHLORIDE 10% ELIXIR 20 MEQ/15 ML UDCUP PO PRN (11:54)
[2024-01-03] MEDS: MAGNESIUM 2GM PREMIX 50ML 50 ML IV PRN (11:54)
[2024-01-03] MEDS ORDERED: PHARMACY COMMUNICATION MISC SCH (12:30)
[2024-01-03] MEDS: VALPROATE SOD 250 MG/5 ML (PO) PEG SCH (20:48)
[2024-01-04] VITALS (14 sets, daily range): BP systolic 100–145; BP diastolic 43–74; PULSE 65–115; RESP 16–18; O2SAT 96–100
[2024-01-04 03:45] LABS: HEMATOCRIT 28.3 % (36-48); MEAN CORPUSCULAR HEMOGLOBIN 30.7 pg (27.0-33.0); MEAN CORPUSCULAR HGB CONC 31.8 g/dL (32.0-36.0); MEAN CORPUSCULAR VOLUME 96.6 fL (79-99); NUCLEATED RED BLOOD CELLS 0.2 % (0.0-0.19); RED BLOOD CELL COUNT(AUTO) 2.93 MIL/uL (4.00-5.50); RED CELL DISTRIBUTION WIDTH 16.9 % (11.0-15.5); WHITE BLOOD COUNT (AUTO) 9.5 K/uL (4.8-10.8)
[2024-01-04 04:05] LABS: ALBUMIN 1.5 g/dL (3.5-5.0); BILIRUBIN,TOTAL 0.1 mg/dL (0.2-1.0); CREATININE 0.6 mg/dL (0.5-1.5); MAGNESIUM 2.2 mg/dL (1.80-2.40); POTASSIUM 3.6 mmol/L (3.5-5.1); TOTAL PROTEIN, SERUM 5.4 g/dL (6.0-8.3)
[2024-01-04] MEDS: POTASSIUM CHLORIDE 20MEQ/100ML 100 ML IV PRN (05:48)
[2024-01-04] MEDS ORDERED: LIDOCAINE HCL 1% MDV 50ML VIAL ONE (13:09)
[2024-01-04] MEDS ORDERED: IOHEXOL-350 50ML VIAL IV ONE (13:38)
[2024-01-04] MEDS ORDERED: MIDAZOLAM HCL 1 MG/ML 2ML VIAL ONE (13:43)
[2024-01-04 19:55] LABS: INR 0.94 (0.85-1.15)
[2024-01-05 00:01] VITALS: BP 124/70; PULSE 80; RESP 18
[2024-01-05 04:04] LABS: BASOPHILS # (AUTO) 0.02 K/uL (0.00-0.20); BASOPHILS % (AUTO) 0.2 % (0.0-5.0); EOSINOPHILS # (AUTO) 0.27 K/uL (0.00-0.70); EOSINOPHILS % (AUTO) 3.2 % (0.0-8.0); HEMATOCRIT 30.2 % (36-48); IMMATURE GRANULOCYTE ABSOLUTE 0.12 K/uL (0-1); LYMPHOCYTES # (AUTO) 1.3 K/uL (1.0-4.8); LYMPHOCYTES % (AUTO) 15.1 % (21.0-51.0); MEAN CORPUSCULAR HEMOGLOBIN 30.4 pg (27.0-33.0); MEAN CORPUSCULAR HGB CONC 31.5 g/dL (32.0-36.0); MEAN CORPUSCULAR VOLUME 96.5 fL (79-99); MONOCYTES # (AUTO) 0.6 K/uL (0.1-1.0); NEUTROPHILS # (AUTO) 6.3 K/uL (1.8-7.7); NEUTROPHILS % (AUTO) 73.1 % (40.0-77.0); NUCLEATED RED BLOOD CELLS 0.5 % (0.0-0.19); PLATELET COUNT (AUTO) 232 K/uL (130-400); RED BLOOD CELL COUNT(AUTO) 3.13 MIL/uL (4.00-5.50); RED CELL DISTRIBUTION WIDTH 17.3 % (11.0-15.5); WHITE BLOOD COUNT (AUTO) 8.6 K/uL (4.8-10.8)
[2024-01-05 04:08] VITALS: BP 131/63; PULSE 71; RESP 18
[2024-01-05 04:20] LABS: CREATININE 0.6 mg/dL (0.5-1.5); MAGNESIUM 1.8 mg/dL (1.80-2.40); PHOSPHORUS 2.3 mg/dL (2.5-4.9); POTASSIUM 3.5 mmol/L (3.5-5.1)
[2024-01-05 07:00] VITALS: O2SAT 96
[2024-01-05 07:05] VITALS: BP 133/65; PULSE 68; RESP 16
[2024-01-05 10:50] VITALS: BP 136/64; PULSE 71; RESP 16
== END 2024-01-05 15:00 | DRG 871 ==
LOC: EDH 12:17 → EDHIP 16:34 → 2AH 23:36
PROVIDERS: ADMIT Internal Medicine; ATTEND Internal Medicine
PROC: 06H03DZ Insertion of Intraluminal Device into Inferior Vena Cava, Percutaneous Approach (ICD-10-PCS; principal; 2024-01-04)
DX: A41.50 Gram-negative sepsis, unspecified (principal); G93.41 Metabolic encephalopathy; J96.01 Acute respiratory failure with hypoxia; I82.441 Acute embolism and thrombosis of right tibial vein; N30.00 Acute cystitis without hematuria; I82.411 Acute embolism and thrombosis of right femoral vein; I82.431 Acute embolism and thrombosis of right popliteal vein; E87.1 Hypo-osmolality and hyponatremia; Z20.822 Contact with and (suspected) exposure to COVID-19; E86.0 Dehydration; B96.89 Other specified bacterial agents as the cause of diseases classified elsewhere; L89.629 Pressure ulcer of left heel, unspecified stage; R65.20 Severe sepsis without septic shock; E11.9 Type 2 diabetes mellitus without complications; E66.9 Obesity, unspecified; E78.00 Pure hypercholesterolemia, unspecified; L89.620 Pressure ulcer of left heel, unstageable; K21.9 Gastro-esophageal reflux disease without esophagitis; I10 Essential (primary) hypertension; Z83.3 Family history of diabetes mellitus; Z86.73 Personal history of transient ischemic attack (TIA), and cerebral infarction without residual deficits; Z87.440 Personal history of urinary (tract) infections; Z93.1 Gastrostomy status; Z95.828 Presence of other vascular implants and grafts; Z68.31 Body mass index [BMI] 31.0-31.9, adult
CPT/HCPCS: 36415; 36600; 37191; 70450; 71045; 71270; 74018; 80048; 80053; 81001; 82140; 82306; 82550; 82803; 82948; 83036; 83605; 83735; 83880; 84100; 84145; 84484; 85025; 85027; 85049; 85610; 85730; 87040; 87077; 87088; 87186; 87635; 87804; 87880; 93005; 93970; 99156; 99157; C1769; C1894; G0378; J0696; J1644; J1650; J1815; J2250; J2543; J3370; J3475; J3480; J3490; J7120; Q9967; A4600; C1750; C1880

== ENCOUNTER 2024-04-05 06:19 | Emergency (ER) | payer MEDICARE ==
[~2024-04-05 06:19] MED LIST changes: +ACET-2247 PEG; -ACET325T51 PO; +ASCO500P18 PEG; +CHOL500045 PO; +DIVA125T2 PEG; -DIVA250T4 PO; -FAMO-136 PO; +FAMO20TA8 PEG; +FERR220E10 PEG; +GUAI100S13 PEG; +GUAI5SYR PEG; -HYDR28.32 TP; +INSU3INS3 SQ; +IPRA3AMP24 IH; -IRON TABLET PO; +LACT10SO5 PEG; +LORA10TA7 PO; +MAGN400T51 PEG; +MEMA10TA21 PEG; +METF-446 PO; -MIDO5TAB4 PO; -MIRT-118 PO; -MULT-1367 PO; +MULT9LIQ6 PEG; +POLY17PO4 PEG; +SENN8.6T32 PEG; +SERT50TA PEG
[2024-04-05] MEDS ORDERED: DIATR MEGLU/DIATRIZOATE SODIUM 30 ML BOTTLE ONE (07:06)
[2024-04-05 10:30] VITALS: BP 142/83; PULSE 74; RESP 16; O2SAT 96
== END 2024-04-05 10:00 | disposition home or self-care (01) ==
LOC: EDH 06:19
DX: K94.23 Gastrostomy malfunction (principal); E11.9 Type 2 diabetes mellitus without complications; F03.90 Unspecified dementia, unspecified severity, without behavioral disturbance, psychotic disturbance, mood disturbance, and anxiety; Z79.4 Long term (current) use of insulin; Z79.84 Long term (current) use of oral hypoglycemic drugs; Z79.899 Other long term (current) drug therapy
CPT/HCPCS: 99284; 43762; 74018; Q9963

== ENCOUNTER 2024-08-09 02:10 | Inpatient (IN) | payer MEDICARE ==
[2024-08-09] VITALS (76 sets, daily range): BP systolic 70–144; BP diastolic 34–65; PULSE 70–110; RESP 10–27; TEMP 98.2–100.2; O2SAT 95–100
[~2024-08-09] VITALS: Ht 154.9 cm; Wt 86.3 kg
[~2024-08-09 02:10] MED LIST changes: +ASPI-1005 PO; +GABA250S6 PO; -LORA10TA7 PO; -MEMA10TA21 PEG; +TRIAM15CRM TP
[2024-08-09 02:30] LABS: BASOPHILS # (AUTO) 0.06 K/uL (0.00-0.20); BASOPHILS % (AUTO) 0.3 % (0.0-5.0); EOSINOPHILS # (AUTO) 0.01 K/uL (0.00-0.70); EOSINOPHILS % (AUTO) 0.1 % (0.0-8.0); HEMATOCRIT 38.8 % (36-48); LYMPHOCYTES # (AUTO) 0.9 K/uL (1.0-4.8); LYMPHOCYTES % (AUTO) 5.1 % (21.0-51.0); MEAN CORPUSCULAR HEMOGLOBIN 27.1 pg (27.0-33.0); MEAN CORPUSCULAR HGB CONC 29.4 g/dL (32.0-36.0); MEAN CORPUSCULAR VOLUME 92.2 fL (79-99); MONOCYTES # (AUTO) 0.8 K/uL (0.1-1.0); MONOCYTES % (AUTO) 4.2 % (3.0-13.0); NEUTROPHILS # (AUTO) 16.3 K/uL (1.8-7.7); NEUTROPHILS % (AUTO) 89.8 % (40.0-77.0); NUCLEATED RED BLOOD CELLS 0.2 % (0.0-0.19); PLATELET COUNT (AUTO) 396 K/uL (130-400); RED BLOOD CELL COUNT(AUTO) 4.21 MIL/uL (4.00-5.50); RED CELL DISTRIBUTION WIDTH 16.9 % (11.0-15.5); WHITE BLOOD COUNT (AUTO) 18.2 K/uL (4.8-10.8)
[2024-08-09 02:45] LABS: INR 1.15 (0.85-1.15); PROTHROMBIN TIME 12.3 SEC (9.6-11.6)
[2024-08-09 02:46] LABS: PARTIAL THROMBOPLASTIN TIME 21.7 SEC (26.3-35.5)
[2024-08-09 02:48] LABS: SARS-CoV-2, RNA, NAAT NEGATIVE SARS CoV-2 (NEGATIVE)
[2024-08-09] MEDS: ZOSYN 3.375GM+NS 50ML 50 ML ONE (02:48)
[2024-08-09] MEDS: FENTanyl 1000MCG+NS 100ML 100 ML IV ONE (02:50)
[2024-08-09] MEDS: NOREPINEPHRIN 4MG/NS 250ML 250 ML IV ONE (02:51)
[2024-08-09 02:54] LABS: INFLUENZA TYPE A Negative For Type A (NEGATIVE)
[2024-08-09 02:55] LABS: ALBUMIN 1.9 g/dL (3.5-5.0); BILIRUBIN,TOTAL 0.4 mg/dL (0.2-1.0); CREATININE 1.5 mg/dL (0.5-1.0); POTASSIUM 4.7 mmol/L (3.5-5.1); TOTAL PROTEIN, SERUM 7.6 g/dL (6.0-8.3)
[2024-08-09 02:56] LABS: INFLUENZA TYPE B Positive For Type B (NEGATIVE)
[2024-08-09 03:09] LABS: B-TYPE NATRIURETIC PEPTIDE 277 pg/mL (0-100)
[2024-08-09 03:43] LABS: APPEARANCE,URINE TURBID (CLEAR); BILIRUBIN,URINE NEGATIVE (NEGATIVE); COLOR,URINE LIGHT-ORANGE (YELLOW); GLUCOSE, URINE (UA) NEGATIVE (NEGATIVE); KETONES,URINE NEGATIVE (NEGATIVE); LEUKOCYTE ESTERASE ,URINE 500 Leu/uL (NEGATIVE); NITRATE,URINE NEGATIVE (NEGATIVE); OCCULT BLOOD,URINE LARGE (NEGATIVE); PROTEIN,URINE 100 mg/dL (NEGATIVE); UROBILINOGEN,URINE 0.2 mg/dL (0.2-1.0)
[2024-08-09] MEDS ORDERED: INSLAN SQ (03:46)
[2024-08-09 04:03] LABS: ADD UA MICROSCOPIC YES
[2024-08-09 04:05] LABS: ABG HCO3 29.3 mmol/L (21.0-28.0); ABG OXYGEN SATURATION 99.2 % (94.0-98.0); ABG PCO2 38 mmHg (32-45); ABG PH 7.509 (7.350-7.450); CARBON MONOXIDE 0.3 % (0.5-1.5); DEVICE COMMENT RR; HHb 0.8; PO2, ARTERIAL BG 204.2 mmHg (83.0-108.0); VENT MODE, BG AC (ROOM AIR)
[2024-08-09 04:08] LABS: BACTERIA,URINE RARE /HPF (None Seen); OTHER CASTS, URINE 44 /LPF (None Seen); RBC,URINE TNTC /HPF (0-1); SQUAMOUS EPITHELIAL CELL,UR MOD /HPF (0-2); TRIPLE PHOSPHATE CRYSTAL,UR MOD /LPF (None Seen); WBC CLUMP MOD /HPF (0-1); WBC,URINE TNTC /HPF (0-1)
[2024-08-09] MEDS: NOREPINEPHRIN 4MG/NS 250ML 250 ML IV SCH (04:53)
[2024-08-09] MEDS: FENTanyl 1000MCG+NS 100ML 100 ML IV SCH (04:56)
[2024-08-09] MEDS: acetaMINOPHEN 650 MG SUPPOSITORY RC ONE ×2 (04:56→05:02)
[2024-08-09] MEDS: 0.9%NACL 1000ML 909 ML IV ONE (04:57)
[2024-08-09] MEDS: NACL IV ONE (04:58)
[2024-08-09] MEDS: ZOSYN 3.375GM +NS 50ML IVPB ONE (04:59)
[2024-08-09] MEDS: dexmedeTOMIDine 400MCG/NS100ML IV SCH (05:00)
[2024-08-09] MEDS: ARTIFICAL TEARS SOL 15 ML OU SCH ×2 (05:30→09:48)
[2024-08-09] MEDS ORDERED: hydrALAZine 20MG/ML VIAL IV PRN (05:30)
[2024-08-09] MEDS ORDERED: doCUSate SODIUM 100 MG CAP PO PRN (05:30)
[2024-08-09] MEDS: CHLORHEXIDINE GLUCONATE 15 ML MOUTHWASH MM SCH (05:30)
[2024-08-09] MEDS ORDERED: acetaMINOPHEN 650 MG SUPPOSITORY RC PRN (05:30)
[2024-08-09] MEDS: VANCOMYCIN KIT 1 GM/250 ML IV.KIT IV ONE (05:42)
[2024-08-09] MEDS: OSELTAMIVIR PHOSPHATE 75 MG CAP PO ONE (05:43)
[2024-08-09] MEDS ORDERED: PHARMACY COMMUNICATION MISC SCH (06:00)
[2024-08-09] MEDS ORDERED: VANCOMYCIN PROTOCOL PER PHARMACY IV SCH (06:00)
[2024-08-09] MEDS: Solu-medROL 125MG VIAL IVP ONE (06:20)
[2024-08-09] MEDS: ALBUTEROL 0.083% 2.5 MG/3 ML INH IH SCH (06:31)
[2024-08-09] MEDS: IpraTROPium 0.5 MG/2.5 ML INH IH SCH (06:31)
[2024-08-09 07:07] LABS: ABG HCO3 28.6 mmol/L (21.0-28.0); ABG OXYGEN SATURATION 95.6 % (94.0-98.0); ABG PCO2 48 mmHg (32-45); ABG PH 7.392 (7.350-7.450); CARBON MONOXIDE 0.3 % (0.5-1.5); HHb 4.4; PO2, ARTERIAL BG 88.3 mmHg (83.0-108.0); VENT MODE, BG AC (ROOM AIR)
[2024-08-09] MEDS: INSULIN humuLIN R 100 UNIT/ML 3ML SQ SCH (07:41)
[2024-08-09] MEDS: OSELTAMIVIR PHOSPHATE 75 MG CAP PO SCH (09:31)
[2024-08-09] MEDS: ceFEPime HCL 1 GM VIAL IVPB SCH (09:31)
[2024-08-09] MEDS ORDERED: 0.9% NACL 500ML IV.SOLN 500 ML IV SCH (10:00)
[2024-08-09 11:00] LABS: ALBUMIN 1.5 g/dL (3.5-5.0); CREATININE 1.2 mg/dL (0.5-1.0); TOTAL PROTEIN, SERUM 6.9 g/dL (6.0-8.3)
[2024-08-09 11:25] LABS: HEMATOCRIT 37.3 % (36-48); MEAN CORPUSCULAR HEMOGLOBIN 27.2 pg (27.0-33.0); MEAN CORPUSCULAR HGB CONC 29.5 g/dL (32.0-36.0); MEAN CORPUSCULAR VOLUME 92.3 fL (79-99); NUCLEATED RED BLOOD CELLS 0.2 % (0.0-0.19); RED BLOOD CELL COUNT(AUTO) 4.04 MIL/uL (4.00-5.50); RED CELL DISTRIBUTION WIDTH 16.8 % (11.0-15.5); WHITE BLOOD COUNT (AUTO) 17.4 K/uL (4.8-10.8)
[2024-08-09] MEDS ORDERED: Solu-medROL 125MG VIAL IVP SCH (12:00)
[2024-08-09] MEDS: LACTATED RINGERS 1000ML IV ONE (16:00)
[2024-08-09] MEDS: VALPROATE SOD 250 MG/5 ML (PO) PEG SCH (21:07)
[2024-08-09] MEDS: ASCORBIC ACID 500 MG TAB PEG SCH (21:35)
[2024-08-09] MEDS: atorVAStatin 10 MG TABLET PO SCH (21:35)
[2024-08-09] MEDS: BALSAM PERU/CASTOR OIL 60 GM TUBE TP SCH (21:40)
[2024-08-10] VITALS (107 sets, daily range): BP systolic 90–151; BP diastolic 23–103; PULSE 64–107; RESP 9–29; TEMP 98.1–99; O2SAT 96–100
[2024-08-10 03:46] LABS: ABG BASE EXCESS 3.3 mmol/L (-2.0-3.0); ABG PCO2 < 15 mmHg (32-45); ABG PH > 7.700 (7.350-7.450); CARBON MONOXIDE 0.2 % (0.5-1.5); DEVICE COMMENT RR RN SANDRA; PO2, ARTERIAL BG 159.1 mmHg (83.0-108.0); VENT MODE, BG ACVC (ROOM AIR)
[2024-08-10 04:17] LABS: BASOPHILS # (AUTO) 0.06 K/uL (0.00-0.20); BASOPHILS % (AUTO) 0.3 % (0.0-5.0); HEMATOCRIT 33.2 % (36-48); IMMATURE GRANULOCYTE ABSOLUTE 0.21 K/uL (0-1); LYMPHOCYTES # (AUTO) 0.6 K/uL (1.0-4.8); LYMPHOCYTES % (AUTO) 2.8 % (21.0-51.0); MEAN CORPUSCULAR HEMOGLOBIN 27.5 pg (27.0-33.0); MEAN CORPUSCULAR HGB CONC 30.1 g/dL (32.0-36.0); MEAN CORPUSCULAR VOLUME 91.2 fL (79-99); MONOCYTES # (AUTO) 0.6 K/uL (0.1-1.0); NEUTROPHILS # (AUTO) 18.7 K/uL (1.8-7.7); NEUTROPHILS % (AUTO) 92.9 % (40.0-77.0); NUCLEATED RED BLOOD CELLS 0.1 % (0.0-0.19); PLATELET COUNT (AUTO) 327 K/uL (130-400); RED BLOOD CELL COUNT(AUTO) 3.64 MIL/uL (4.00-5.50); RED CELL DISTRIBUTION WIDTH 16.9 % (11.0-15.5); WHITE BLOOD COUNT (AUTO) 20.1 K/uL (4.8-10.8)
[2024-08-10 04:28] LABS: CREATININE 1.2 mg/dL (0.5-1.0); MAGNESIUM 2.5 mg/dL (1.80-2.40); POTASSIUM 4.3 mmol/L (3.5-5.1)
[2024-08-10] MEDS: proPOFol 1000 MG/100 ML IV SCH (04:42)
[2024-08-10 07:35] LABS: ABG BASE EXCESS 4.8 mmol/L (-2.0-3.0); ABG HCO3 28.7 mmol/L (21.0-28.0); ABG PCO2 40 mmHg (32-45); ABG PH 7.478 (7.350-7.450); CARBON MONOXIDE 0.1 % (0.5-1.5); DEVICE COMMENT RBKARLA; PO2, ARTERIAL BG 113.4 mmHg (83.0-108.0); VENT MODE, BG AC (ROOM AIR)
[2024-08-10] MEDS: INSULIN GLARgine 100 UNITS/ML 10 ML VIAL SQ SCH (08:07)
[2024-08-10] MEDS: PANTOPrazole 40 MG/VIAL IVP SCH (08:09)
[2024-08-10] MEDS: ASPIRIN 81MG CHEW TAB PO SCH (08:09)
[2024-08-10] MEDS: MAGNESIUM OXIDE 400 MG TABLET PEG SCH (08:09)
[2024-08-10] MEDS: ENOXAPARIN SODIUM 40 MG/0.4 ML SYRINGE SQ SCH (08:11)
[2024-08-10] MEDS: (Cholecalciferol (Vitamin D3) (Vitamin D3) 125 MCG) PO SCH (08:22)
[2024-08-10] MEDS: FERROUS FUM PEG SCH (08:22)
[2024-08-10] MEDS: FERROUS SULFATE 220 MG PEG SCH (08:22)
[2024-08-10] MEDS: MULTIVIT PEG SCH (08:22)
[2024-08-10] MEDS: MINERALS PEG SCH (08:22)
[2024-08-10] MEDS ORDERED: FAMOTIDINE 20MG TAB PEG SCH (09:00)
[2024-08-10] MEDS ORDERED: dexmedeTOMIDine 400MCG/NS100ML IV SCH (09:30)
[2024-08-10] MEDS: INSULIN humuLIN R 100 UNIT/ML 3ML SQ SCH (11:17)
[2024-08-10] MEDS ORDERED: miDODRine HCL 5 MG TABLET PO SCH (14:00)
[2024-08-10] MEDS: VANCOMYCIN 750MG VIAL IVPB SCH (14:27)
[2024-08-10] MEDS ORDERED: LACE ASSESSMENT (SCORE > 11) MISC SCH (14:30)
[2024-08-10 14:42] LABS: ABG BASE EXCESS 2.7 mmol/L (-2.0-3.0); ABG HCO3 26.3 mmol/L (21.0-28.0); ABG OXYGEN SATURATION 98.2 % (94.0-98.0); ABG PCO2 37 mmHg (32-45); ABG PH 7.468 (7.350-7.450); DEVICE COMMENT LRKARLA; PO2, ARTERIAL BG 106.7 mmHg (83.0-108.0); VENT MODE, BG CPAP 5-10 (ROOM AIR)
[2024-08-10 16:47] LABS: INR 1.18 (0.85-1.15); PROTHROMBIN TIME 12.6 SEC (9.6-11.6)
[2024-08-10 16:48] LABS: PARTIAL THROMBOPLASTIN TIME 30.8 SEC (26.3-35.5)
[2024-08-10] MEDS: IpraTROPium 0.5 MG/2.5 ML INH IH PRN (23:33)
[2024-08-10] MEDS: ALBUTEROL 0.083% 2.5 MG/3 ML INH IH PRN (23:33)
[2024-08-11] VITALS (36 sets, daily range): BP systolic 105–144; BP diastolic 41–77; PULSE 71–94; RESP 6–29; TEMP 98.2–99; O2SAT 95–98
[2024-08-11 04:10] LABS: BASOPHILS # (AUTO) 0.02 K/uL (0.00-0.20); BASOPHILS % (AUTO) 0.1 % (0.0-5.0); EOSINOPHILS # (AUTO) 0.46 K/uL (0.00-0.70); EOSINOPHILS % (AUTO) 3.3 % (0.0-8.0); IMMATURE GRANULOCYTE ABSOLUTE 0.12 K/uL (0-1); LYMPHOCYTES # (AUTO) 0.4 K/uL (1.0-4.8); LYMPHOCYTES % (AUTO) 2.8 % (21.0-51.0); MEAN CORPUSCULAR HEMOGLOBIN 26.5 pg (27.0-33.0); MEAN CORPUSCULAR HGB CONC 28.8 g/dL (32.0-36.0); MEAN CORPUSCULAR VOLUME 92.2 fL (79-99); MONOCYTES # (AUTO) 0.4 K/uL (0.1-1.0); MONOCYTES % (AUTO) 2.8 % (3.0-13.0); NEUTROPHILS # (AUTO) 12.7 K/uL (1.8-7.7); NEUTROPHILS % (AUTO) 90.1 % (40.0-77.0); NUCLEATED RED BLOOD CELLS 0.1 % (0.0-0.19); PLATELET COUNT (AUTO) 255 K/uL (130-400); RED BLOOD CELL COUNT(AUTO) 3.58 MIL/uL (4.00-5.50); RED CELL DISTRIBUTION WIDTH 16.7 % (11.0-15.5)
[2024-08-11 04:33] LABS: CREATININE 0.9 mg/dL (0.5-1.0); MAGNESIUM 2.5 mg/dL (1.80-2.40); POTASSIUM 3.4 mmol/L (3.5-5.1); THYROID STIMULATING HORMONE 1.57 uIU/mL (0.36-3.74)
[2024-08-11] MEDS ORDERED: PoTASSium chloRIDE 10MEQ/100ML 100 ML IV PRN (07:30)
[2024-08-11] MEDS ORDERED: PoTASSium chloRIDE 20MEQ ER 20 MEQ ERTAB PO PRN (07:30)
[2024-08-11] MEDS: PoTASSium chl 10% ELIXIR 20MEQ 20 MEQ/15 ML UDCUP PO PRN (08:19)
[2024-08-11] MEDS ORDERED: BACTRIM 800MG/160MG 10ML VIAL 0 MG in 0.9%NACL 100ML 100 ML IV SCH (10:00)
[2024-08-11] MEDS ORDERED: COMPOUND IV MISC 1 EACH IVSOLN MISC PRN (11:30)
[2024-08-11] MEDS: DEXTROSE 5%-WATER 1,000 ML IV SCH (11:40)
[2024-08-11] MEDS: MEROPENEM 1 GM/NS 100 CRCL 26-50 IV SCH (12:09)
[2024-08-12] VITALS (12 sets, daily range): BP systolic 108–135; BP diastolic 52–71; PULSE 65–96; RESP 16–18; TEMP 98.8–99.5; O2SAT 95–98
[2024-08-12 05:31] LABS: BASOPHILS # (AUTO) 0.02 K/uL (0.00-0.20); BASOPHILS % (AUTO) 0.2 % (0.0-5.0); EOSINOPHILS % (AUTO) 5.7 % (0.0-8.0); HEMATOCRIT 28.9 % (36-48); IMMATURE GRANULOCYTE ABSOLUTE 0.09 K/uL (0-1); LYMPHOCYTES # (AUTO) 0.4 K/uL (1.0-4.8); LYMPHOCYTES % (AUTO) 3.5 % (21.0-51.0); MEAN CORPUSCULAR HEMOGLOBIN 27.4 pg (27.0-33.0); MEAN CORPUSCULAR HGB CONC 30.1 g/dL (32.0-36.0); MEAN CORPUSCULAR VOLUME 90.9 fL (79-99); MONOCYTES # (AUTO) 0.3 K/uL (0.1-1.0); MONOCYTES % (AUTO) 2.8 % (3.0-13.0); NEUTROPHILS # (AUTO) 10.7 K/uL (1.8-7.7); NEUTROPHILS % (AUTO) 87.1 % (40.0-77.0); NUCLEATED RED BLOOD CELLS 0.2 % (0.0-0.19); PLATELET COUNT (AUTO) 250 K/uL (130-400); RED BLOOD CELL COUNT(AUTO) 3.18 MIL/uL (4.00-5.50); RED CELL DISTRIBUTION WIDTH 16.9 % (11.0-15.5); WHITE BLOOD COUNT (AUTO) 12.3 K/uL (4.8-10.8)
[2024-08-12 05:41] LABS: POTASSIUM 3.7 mmol/L (3.5-5.1)
[2024-08-12 05:46] LABS: VANCOMYCIN TROUGH 11.2 UG/ML (10.0-20.0)
[2024-08-12 06:01] LABS: VALPROIC ACID < 3 mcg/mL (50-100)
[2024-08-12] MEDS: VANCOMYCIN 500MG+NS 100ML IV SCH (06:06)
[2024-08-12] MEDS: DEXTROSE 50%-WATER 50 ML DISP.SYRIN IV PRN (20:28)
[2024-08-12] MEDS: acetaMINOPHEN 325 MG TAB PO PRN (20:29)
[2024-08-12] MEDS ORDERED: GLUCAGON 1MG KIT 1 MG ML IM PRN (20:30)
[2024-08-13] VITALS (13 sets, daily range): BP systolic 113–126; BP diastolic 51–55; PULSE 77–89; RESP 18–20; TEMP 97.2–98.9; O2SAT 95–100
[2024-08-13 05:56] LABS: BASOPHILS # (AUTO) 0.03 K/uL (0.00-0.20); BASOPHILS % (AUTO) 0.2 % (0.0-5.0); EOSINOPHILS # (AUTO) 0.56 K/uL (0.00-0.70); EOSINOPHILS % (AUTO) 4.4 % (0.0-8.0); IMMATURE GRANULOCYTE ABSOLUTE 0.22 K/uL (0-1); LYMPHOCYTES # (AUTO) 0.7 K/uL (1.0-4.8); LYMPHOCYTES % (AUTO) 5.7 % (21.0-51.0); MEAN CORPUSCULAR HEMOGLOBIN 27.3 pg (27.0-33.0); MEAN CORPUSCULAR VOLUME 90.9 fL (79-99); MONOCYTES # (AUTO) 0.5 K/uL (0.1-1.0); MONOCYTES % (AUTO) 3.9 % (3.0-13.0); NEUTROPHILS # (AUTO) 10.7 K/uL (1.8-7.7); NEUTROPHILS % (AUTO) 84.1 % (40.0-77.0); PLATELET COUNT (AUTO) 244 K/uL (130-400); RED BLOOD CELL COUNT(AUTO) 3.08 MIL/uL (4.00-5.50); RED CELL DISTRIBUTION WIDTH 16.7 % (11.0-15.5); WHITE BLOOD COUNT (AUTO) 12.7 K/uL (4.8-10.8)
[2024-08-13 06:10] LABS: CREATININE 0.9 mg/dL (0.5-1.0); POTASSIUM 3.9 mmol/L (3.5-5.1); VANCOMYCIN TROUGH 9.1 UG/ML (10.0-20.0)
[2024-08-13] MEDS: INSULIN GLARgine 100 UNITS/ML 10 ML VIAL SQ SCH (09:00)
[2024-08-13 15:27] LABS: CREATININE 0.8 mg/dL (0.5-1.0); POTASSIUM 4.3 mmol/L (3.5-5.1)
[2024-08-14] VITALS (14 sets, daily range): BP systolic 90–119; BP diastolic 49–86; PULSE 84–100; RESP 16–24; TEMP 98.4–98.8; O2SAT 94–100
[2024-08-14 05:43] LABS: BASOPHILS # (AUTO) 0.04 K/uL (0.00-0.20); BASOPHILS % (AUTO) 0.3 % (0.0-5.0); EOSINOPHILS # (AUTO) 0.65 K/uL (0.00-0.70); EOSINOPHILS % (AUTO) 5.2 % (0.0-8.0); HEMATOCRIT 27.6 % (36-48); IMMATURE GRANULOCYTE ABSOLUTE 0.31 K/uL (0-1); LYMPHOCYTES # (AUTO) 0.9 K/uL (1.0-4.8); LYMPHOCYTES % (AUTO) 6.8 % (21.0-51.0); MEAN CORPUSCULAR HEMOGLOBIN 26.9 pg (27.0-33.0); MEAN CORPUSCULAR HGB CONC 30.1 g/dL (32.0-36.0); MEAN CORPUSCULAR VOLUME 89.3 fL (79-99); MONOCYTES # (AUTO) 0.6 K/uL (0.1-1.0); MONOCYTES % (AUTO) 4.5 % (3.0-13.0); NEUTROPHILS # (AUTO) 10.2 K/uL (1.8-7.7); NEUTROPHILS % (AUTO) 80.7 % (40.0-77.0); NUCLEATED RED BLOOD CELLS 0.4 % (0.0-0.19); PLATELET COUNT (AUTO) 222 K/uL (130-400); RED BLOOD CELL COUNT(AUTO) 3.09 MIL/uL (4.00-5.50); RED CELL DISTRIBUTION WIDTH 16.8 % (11.0-15.5); WHITE BLOOD COUNT (AUTO) 12.6 K/uL (4.8-10.8)
[2024-08-14 05:57] LABS: CREATININE 0.8 mg/dL (0.5-1.0); POTASSIUM 4.1 mmol/L (3.5-5.1); VANCOMYCIN TROUGH 11.1 UG/ML (10.0-20.0)
[2024-08-15] VITALS (12 sets, daily range): BP systolic 107–121; BP diastolic 34–52; PULSE 71–87; RESP 18–28; TEMP 97.6–98.2; O2SAT 96–100
[2024-08-15 13:31] LABS: INR 1.06 (0.85-1.15); PROTHROMBIN TIME 11.4 SEC (9.6-11.6)
[2024-08-16] VITALS (12 sets, daily range): BP systolic 106–154; BP diastolic 36–67; PULSE 80–96; RESP 17–23; TEMP 97.6–98.8; O2SAT 94–100
[2024-08-16 05:58] LABS: BASOPHILS # (AUTO) 0.03 K/uL (0.00-0.20); BASOPHILS % (AUTO) 0.3 % (0.0-5.0); EOSINOPHILS # (AUTO) 0.44 K/uL (0.00-0.70); EOSINOPHILS % (AUTO) 4.7 % (0.0-8.0); HEMATOCRIT 28.8 % (36-48); IMMATURE GRANULOCYTE ABSOLUTE 0.19 K/uL (0-1); LYMPHOCYTES # (AUTO) 1.2 K/uL (1.0-4.8); LYMPHOCYTES % (AUTO) 13.1 % (21.0-51.0); MEAN CORPUSCULAR HGB CONC 28.8 g/dL (32.0-36.0); MEAN CORPUSCULAR VOLUME 93.8 fL (79-99); MONOCYTES # (AUTO) 0.4 K/uL (0.1-1.0); MONOCYTES % (AUTO) 4.7 % (3.0-13.0); NEUTROPHILS % (AUTO) 75.2 % (40.0-77.0); NUCLEATED RED BLOOD CELLS 0.3 % (0.0-0.19); PLATELET COUNT (AUTO) 356 K/uL (130-400); RED BLOOD CELL COUNT(AUTO) 3.07 MIL/uL (4.00-5.50); RED CELL DISTRIBUTION WIDTH 17.5 % (11.0-15.5); WHITE BLOOD COUNT (AUTO) 9.4 K/uL (4.8-10.8)
[2024-08-16 06:04] LABS: ALBUMIN 1.3 g/dL (3.5-5.0); BILIRUBIN,TOTAL 0.3 mg/dL (0.2-1.0); CREATININE 0.7 mg/dL (0.5-1.0); POTASSIUM 4.1 mmol/L (3.5-5.1); VANCOMYCIN TROUGH 11.1 UG/ML (10.0-20.0)
[2024-08-17] VITALS (16 sets, daily range): BP systolic 115–160; BP diastolic 32–85; PULSE 72–110; RESP 16–20; TEMP 97.6–99.4; O2SAT 91–100
[2024-08-17 05:33] LABS: BASOPHILS # (AUTO) 0.04 K/uL (0.00-0.20); BASOPHILS % (AUTO) 0.4 % (0.0-5.0); EOSINOPHILS # (AUTO) 0.47 K/uL (0.00-0.70); EOSINOPHILS % (AUTO) 4.2 % (0.0-8.0); HEMATOCRIT 30.8 % (36-48); IMMATURE GRANULOCYTE ABSOLUTE 0.21 K/uL (0-1); LYMPHOCYTES # (AUTO) 1.5 K/uL (1.0-4.8); LYMPHOCYTES % (AUTO) 13.5 % (21.0-51.0); MEAN CORPUSCULAR HGB CONC 28.9 g/dL (32.0-36.0); MEAN CORPUSCULAR VOLUME 93.3 fL (79-99); MONOCYTES # (AUTO) 0.5 K/uL (0.1-1.0); MONOCYTES % (AUTO) 4.6 % (3.0-13.0); NEUTROPHILS # (AUTO) 8.5 K/uL (1.8-7.7); NEUTROPHILS % (AUTO) 75.4 % (40.0-77.0); NUCLEATED RED BLOOD CELLS 0.3 % (0.0-0.19); PLATELET COUNT (AUTO) 406 K/uL (130-400); RED CELL DISTRIBUTION WIDTH 17.9 % (11.0-15.5); WHITE BLOOD COUNT (AUTO) 11.3 K/uL (4.8-10.8)
[2024-08-17 05:46] LABS: CREATININE 0.6 mg/dL (0.5-1.0); POTASSIUM 4.7 mmol/L (3.5-5.1)
[2024-08-18] VITALS (16 sets, daily range): BP systolic 107–159; BP diastolic 44–83; PULSE 75–85; RESP 16–20; TEMP 97.1–98.8; O2SAT 98–100
[2024-08-18 05:18] LABS: BASOPHILS # (AUTO) 0.03 K/uL (0.00-0.20); BASOPHILS % (AUTO) 0.3 % (0.0-5.0); EOSINOPHILS # (AUTO) 0.51 K/uL (0.00-0.70); EOSINOPHILS % (AUTO) 5.2 % (0.0-8.0); HEMATOCRIT 29.1 % (36-48); IMMATURE GRANULOCYTE ABSOLUTE 0.18 K/uL (0-1); LYMPHOCYTES # (AUTO) 1.4 K/uL (1.0-4.8); MEAN CORPUSCULAR HEMOGLOBIN 27.5 pg (27.0-33.0); MEAN CORPUSCULAR HGB CONC 29.9 g/dL (32.0-36.0); MEAN CORPUSCULAR VOLUME 92.1 fL (79-99); MONOCYTES # (AUTO) 0.4 K/uL (0.1-1.0); MONOCYTES % (AUTO) 3.9 % (3.0-13.0); NEUTROPHILS # (AUTO) 7.4 K/uL (1.8-7.7); NEUTROPHILS % (AUTO) 74.8 % (40.0-77.0); NUCLEATED RED BLOOD CELLS 0.3 % (0.0-0.19); PLATELET COUNT (AUTO) 372 K/uL (130-400); RED BLOOD CELL COUNT(AUTO) 3.16 MIL/uL (4.00-5.50); RED CELL DISTRIBUTION WIDTH 18.2 % (11.0-15.5); WHITE BLOOD COUNT (AUTO) 9.9 K/uL (4.8-10.8)
[2024-08-18 05:35] LABS: CREATININE 0.6 mg/dL (0.5-1.0); POTASSIUM 4.3 mmol/L (3.5-5.1); VANCOMYCIN TROUGH 5.1 UG/ML (10.0-20.0)
[2024-08-18 05:37] LABS: INR 1.08 (0.85-1.15); PROTHROMBIN TIME 11.6 SEC (9.6-11.6)
[2024-08-18 05:38] LABS: PARTIAL THROMBOPLASTIN TIME 22.4 SEC (26.3-35.5)
[2024-08-18] MEDS ORDERED: HEParin-NS 1,000 UNIT/500 ML 500 ML IV ONE (15:50)
[2024-08-18] MEDS ORDERED: LIDOCAINE HCL 400MG/20ML VIAL ONE (15:50)
[2024-08-18] MEDS ORDERED: HEParin 1,000 UNIT VIAL ONE (15:50)
[2024-08-18] MEDS ORDERED: MIDAZOLAM HCL 1 MG/ML 2ML VIAL ONE (15:57)
[2024-08-19] VITALS (14 sets, daily range): BP systolic 118–159; BP diastolic 42–65; PULSE 76–86; RESP 17–22; TEMP 98.2–98.9; O2SAT 96–100
[2024-08-19] MEDS: INSULIN humuLIN R 100 UNIT/ML 3ML SQ SCH ×2
[2024-08-19] MEDS: ENOXAPARIN SODIUM 40 MG/0.4 ML SYRINGE SQ SCH (08:54)
[2024-08-19] MEDS: LACTULOSE 20 GM/30 ML UDCUP PO PRN (16:40)
== END 2024-08-19 21:00 | DRG 871 ==
LOC: EDH 02:10 → EDHIP 05:02 → 2CH 07:02 → 2DH 08-11 14:41 → 3CH 08-14 15:10
PROVIDERS: ADMIT Internal Medicine; ATTEND Internal Medicine
PROC: 0BH17EZ Insertion of Endotracheal Airway into Trachea, Via Natural or Artificial Opening (ICD-10-PCS; 2024-08-09)
PROC: 5A1945Z Respiratory Ventilation, 24-96 Consecutive Hours (ICD-10-PCS; 2024-08-09)
PROC: 0JH63XZ Insertion of Tunneled Vascular Access Device into Chest Subcutaneous Tissue and Fascia, Percutaneous Approach (ICD-10-PCS; principal; 2024-08-18)
PROC: 02H633Z Insertion of Infusion Device into Right Atrium, Percutaneous Approach (ICD-10-PCS; 2024-08-18)
PROC: B5181ZA Fluoroscopy of Superior Vena Cava using Low Osmolar Contrast, Guidance (ICD-10-PCS; 2024-08-18)
PROC: B548ZZA Ultrasonography of Superior Vena Cava, Guidance (ICD-10-PCS; 2024-08-18)
DX: A41.81 Sepsis due to Enterococcus (principal); E11.01 Type 2 diabetes mellitus with hyperosmolarity with coma; J96.01 Acute respiratory failure with hypoxia; G93.41 Metabolic encephalopathy; J96.02 Acute respiratory failure with hypercapnia; R65.21 Severe sepsis with septic shock; J15.212 Pneumonia due to Methicillin resistant Staphylococcus aureus; J12.9 Viral pneumonia, unspecified; J10.08 Influenza due to other identified influenza virus with other specified pneumonia; N17.9 Acute kidney failure, unspecified; J90 Pleural effusion, not elsewhere classified; N30.00 Acute cystitis without hematuria; Z20.822 Contact with and (suspected) exposure to COVID-19; E78.5 Hyperlipidemia, unspecified; K59.00 Constipation, unspecified; R62.7 Adult failure to thrive; N18.2 Chronic kidney disease, stage 2 (mild); B96.1 Klebsiella pneumoniae [K. pneumoniae] as the cause of diseases classified elsewhere; E66.01 Morbid (severe) obesity due to excess calories; B96.4 Proteus (mirabilis) (morganii) as the cause of diseases classified elsewhere; D64.9 Anemia, unspecified; E11.22 Type 2 diabetes mellitus with diabetic chronic kidney disease; F03.C0 Unspecified dementia, severe, without behavioral disturbance, psychotic disturbance, mood disturbance, and anxiety; E11.65 Type 2 diabetes mellitus with hyperglycemia; F20.9 Schizophrenia, unspecified; I12.9 Hypertensive chronic kidney disease with stage 1 through stage 4 chronic kidney disease, or unspecified chronic kidney disease; I69.391 Dysphagia following cerebral infarction; Z74.01 Bed confinement status; Z68.32 Body mass index [BMI] 32.0-32.9, adult; Z93.1 Gastrostomy status; Z68.35 Body mass index [BMI] 35.0-35.9, adult; Z83.3 Family history of diabetes mellitus
CPT/HCPCS: 31500; 36415; 36558; 36569; 36600; 70450; 71045; 77001; 80048; 80053; 80164; 80202; 81001; 82140; 82435; 82803; 82947; 82948; 83605; 83735; 83880; 84132; 84145; 84295; 84443; 84484; 85018; 85025; 85027; 85378; 85610; 85730; 87040; 87071; 87086; 87186; 87205; 87449; 87635; 87641; 87804; 93005; 93306; 93970; 94003; 94640; 94664; 94667; 94668; C1751; C1894; G0378; J0692; J1644; J1650; J1815; J2185; J2250; J2470; J2543; J2704; J2919; J3010; J3370; J3490; J7070; A4600; C1750

== ENCOUNTER 2024-10-16 02:20 | Inpatient (IN) | payer MEDICARE ==
[~2024-10-16] VITALS: Ht 157.5 cm; Wt 102.5 kg
[2024-10-16] VITALS (125 sets, daily range): BP systolic 84–149; BP diastolic 38–83; PULSE 48–94; RESP 16–24; TEMP 96.6–100; O2SAT 94–100
[~2024-10-16 02:20] MED LIST changes: -ACET-2247 PEG; -ACET325C6 PO; -GUAI100S13 PEG; -INSU3INS3 SQ; -IPRA3AMP24 IH; +LACT-441 PEG; -LACT10SO5 PEG
--- NOTE | 2024-10-16 02:53 | ERN ---
ED Note History of Present Illness Stated Complaint: UNRESPONSIVE Chief Complaint: Dyspnea/Respdistress Time Seen by MD: 02:33 Dictation: This is an 84-year-old morbidly obese female who was brought in by EMS from the correction [place] with complaints of being unresponsive. Per EMS report patient's systolic blood pressures were 82/32 she was barely responsive with the initial saturations of 78% on room air. Patient apparently also had a chest x- ray done yesterday which showed bilateral pleural effusions right side more than left per EMS report. Patient received fluids and Levophed was started. Her GCS was 6 at presentation to the ED. she was bagged with Ambu bag upon arrival. Intubation attempt was difficult, patient had nasal airway placed by EMT prior to arrival. She was totally obtunded unresponsive to any commands in moderate respiratory distress. Temperature 97 pulse 106 respirations 25. Her chronic medical problems include diabetes mellitus, hypertension, hypercholesterolemia, dementia at baseline, prior endotracheal intubation for sepsis and unresponsiveness., CKD stage 2, morbid obesity No other history was available. Allergies: Coded Allergies: No Known Drug Allergies (Verified Allergy, Unknown, 07/23/21) Home Meds Reported Medications Triamcinolone Acetonide (Triamcinolone Acetonide) 0.1 % Cream.gm., 15 GM TP TID, APPL 05/05/24 Gabapentin (Gabapentin) 250 Mg/5 Ml Solution, 250 MG PO BID, ML 05/05/24 Aspirin (ASPIRIN 81MG CHEW TAB) 81 Mg Tab.chew, 81 MG PO DAILY, TAB.CHEW 05/05/24 Cholecalciferol (Vitamin D3) (Vitamin D3) 125 Mcg (5000 Unit) Tablet, 125 MCG PO DAILY, TAB 02/24/24 Metformin HCl (Metformin HCl) 1,000 Mg Tablet, 1000 MG PO BID, TAB 02/24/24 Lactulose (Lactulose) 10 Gram/15 Ml Solution, 30 ML PEG DAILY, ML 12/28/23 Polyethylene Glycol 3350 (Miralax) 17 Gram Powd.pack, 17 GM PEG DAILY PRN for CONSTIPATION 12/28/23 Sennosides (Senna) 8.6 Mg Tablet, 17.2 MG PEG BID, TAB 12/28/23 Magnesium Oxide (Magnesium Oxide) 400 Mg Magnesium Tablet, 400 MG PEG DAILY, TAB 12/28/23 Famotidine (Famotidine) 20 Mg Tablet, 20 MG PEG DAILY, TAB 12/28/23 Sertraline HCl (Zoloft) 50 Mg Tablet, 50 MG PEG DAILY, TAB 12/28/23 Divalproex Sodium (Depakote) 125 Mg Tablet.dr, 125 MG PEG BID, TAB 12/28/23 Ferrous Sulfate (Ferrous Sulfate) 220 Mg (44 Mg Iron)/5 Ml Elixir, 220 MG PEG DAILY, ML 12/28/23 Multivit &Minerals/Ferrous Fum (Multivitamin Liquid) 9 Mg Iron/15 Ml Liquid, 5 ML PEG DAILY 12/28/23 Guaifenesin/Dextromethorphan (Guaifenesin Dm Syrup) 100 Mg-10 Mg/5 Ml Syrup, 10 ML PEG Q6HPRN PRN for COUGH, ML 12/28/23 Ascorbic Acid (Vitamin C) 500 Mg Powd.pack, 500 MG PEG BID 12/28/23 Atorvastatin Calcium (Atorvastatin Calcium) 10 Mg Tablet, 10 MG PO HS, TAB 10/03/22 Memantine HCl (Namenda) 10 Mg Tablet, 10 MG PO BID, TAB 10/03/22 Past Medical History Past Medical History: Dementia, Diabetes-Type II, High Cholesterol, Hypertension, Renal Disese Additional Past Medical Hx: FAILURE TO THRIVE Surgical History: Unknown Family History: Negative Social History: Negative, [place] History: Not Applicable RN Note Reviewed/Agreed w/PFSH: Yes Review of System Dictation UNABLE TO OBTAIN DETAILED REVIEW OF SYSTEMS THE PATIENT IS OBTUNDED AND UNRESPONSIVE Initial Vital Sign VS Vital Signs Date Time Temp Pulse Resp B/P (MAP) Pulse Ox O2 Delivery O2 Flow Rate FiO2 10/16/24 02:21 97.0 106 20 150/63 78 Room Air* 0 21 Physical Exam Dictation General: Unresponsive obtunded spontaneously breathing moderately tachypneic. Head/Face: Normocephalic, atraumatic Eyes: PERRL, EOMI, vision at baseline ENT: oral cavity clear, TMs clear, no signs of infection Neck: Trachea slightly deviated to the right, supple, no nuchal rigidity Cardiovascular: RRR, normal S1/S2, No MRGs, no JVD Respiratory: CTAB, no respiratory distress, No rales or wheezes Abdomen: Soft, non-tender, non-distended, normal bowel sounds, no guarding or rebound. Skin: Warm, dry, normal turgor, no rash MS/Extremity: Pulses equal, no cyanosis, neurovascular intact, FROM Neuro: GCS 6, nonfocal neuro exam. Psych: Normal behavior, mood, and affect normal Extremities-trace edema without any palpable cords, Homans sign is negative Results (Laboratory/Radiology) Laboratory/Radiology Laboratory Tests Test 10/16/24 03:09 10/16/24 03:41 10/16/24 04:09 10/16/24 05:38 Urine Color LIGHT-YELLOW (YELLOW) Urine Appearance CLOUDY (CLEAR) H Urine pH 5.5 (5.0-8.0) Urine Specific [place] 1.009 (1.001-1.031) Urine Protein 10 mg/dL (NEGATIVE) H Urine Glucose (UA) NEGATIVE mg/dL (NEGATIVE) Urine Ketones NEGATIVE mg/dL (NEGATIVE) Urine Occult Blood SMALL (NEGATIVE) H Urine Nitrate NEGATIVE (NEGATIVE) Urine Bilirubin NEGATIVE mg/dL (NEGATIVE) Urine Urobilinogen 0.2 mg/dL (0.2-1.0) Urine Leukocyte Esterase 500 Zahra/uL (NEGATIVE) H Urine RBC 2-5 /HPF (0-1) H Urine WBC TNTC /HPF (0-1) H Urine WBC Clumps (Auto) FEW /HPF (0-1) Urine Squamous Epithelial Cells FEW /HPF (0-2) Urine Bacteria RARE /HPF (None Seen) Urine Hyaline Casts 6-10 /LPF (0-1 /LPF) H White Blood Count 15.3 K/uL (4.8-10.8) H Red Blood Count 3.43 MIL/uL (4.00-5.50) L Hemoglobin 9.6 g/dL (12.0-16.0) L Hematocrit 32.4 % (36-48) L Mean Corpuscular Volume 94.5 fL (79-99) Mean Corpuscular Hemoglobin 28.0 pg (27.0-33.0) Mean Corpuscular Hemoglobin Concent 29.6 g/dL (32.0-36.0) L Red Cell Distribution Width 18.3 % (11.0-15.5) H Platelet Count 301 K/uL (130-400) Mean Platelet Volume 10.2 fL (7.5-10.5) Immature Granulocyte % (Auto) 1.6 % (0-1) H Neutrophils (%) (Auto) 87.2 % (40.0-77.0) H Lymphocytes (%) (Auto) 3.9 % (21.0-51.0) L Monocytes (%) (Auto) 6.7 % (3.0-13.0) Eosinophils (%) (Auto) 0.1 % (0.0-8.0) Basophils (%) (Auto) 0.5 % (0.0-5.0) Neutrophils # (Auto) 13.4 K/uL (1.8-7.7) H Lymphocytes # (Auto) 0.6 K/uL (1.0-4.8) L Monocytes # (Auto) 1.0 K/uL (0.1-1.0) Eosinophils # (Auto) 0.01 K/uL (0.00-0.70) Basophils # (Auto) 0.07 K/uL (0.00-0.20) Absolute Immature Granulocyte (auto 0.24 K/uL (0-1) Nucleated Red Blood Cells 0.6 % (0.0-0.19) H White Cell Morphology Comment See comments Red Blood Cell Morphology See comments Sodium Level 144 mmol/L (136-145) 145 mmol/L (136-145) Potassium Level 4.9 mmol/L (3.5-5.1) 4.2 mmol/L (3.5-5.1) Chloride Level 104 mmol/L (101-111) 105 mmol/L (101-111) Carbon Dioxide Level 30 mmol/L (21-32) 29 mmol/L (21-32) Blood Urea Nitrogen 49 mg/dL (7-18) H 44 mg/dL (7-18) H Creatinine 0.9 mg/dL (0.5-1.0) 1.0 mg/dL (0.5-1.0) Glomerular Filtration Rate Calc 62 mL/min (>90) 55 mL/min (>90) Random Glucose 227 mg/dL (70-105) H 223 mg/dL (70-105) H Lactic Acid Level 6.4 mmol/L (0.8-2.5) H Total Calcium 8.8 mg/dL (8.5-10.1) 8.0 mg/dL (8.5-10.1) L Total Creatine Kinase 30 U/L (21-232) # Troponin I High Sensitivity 34.3 ng/L (4-50) 33 ng/L (4-50) B-Type Natriuretic Peptide 446 pg/mL (0-100) H Influenza Type A Antigen Negative For Type A Influenza Type B Antigen Negative For Type B SARS-CoV-2, RNA, NAAT NEGATIVE SARS CoV-2 Group A Streptococcus Rapid negative (NEGATIVE) D-Dimer Quantitative (PE/DVT) 706 ng/mL (0-500) *H Phosphorus Level 3.5 mg/dL (2.5-4.9) Magnesium Level 1.70 mg/dL (1.80-2.40) L Total Bilirubin 0.9 mg/dL (0.2-1.0) Aspartate Amino Transf (AST/SGOT) 18 U/L (10-37) Alanine Aminotransferase (ALT/SGPT) 9 U/L (12-78) L Alkaline Phosphatase 134 U/L (50-136) Ammonia < 10 umol/L (11-32) L Total Protein 6.6 g/dL (6.0-8.3) Albumin 2.0 g/dL (3.5-5.0) L Thyroid Stimulating Hormone (TSH) 1.32 uIU/mL (0.36-3.74) Labs Reviewed?: Yes EKG Comment: A 12 lead EKG done on 10/16/2024 at 3:00 a.m. showed a sinus rhythm with a rate of 98 ME interval 141 QRS 68 QT/QTC 335/427. Impression normal sinus rhythm with nonspecific ST-T changes overall somewhat of a low voltage considering her body habitus. No acute ST elevations noted Interpreted by ER MD Dr. Epps ED Course ED Course Orders Procedure Category Date Status Time Chest 1vw RAD 10/16/24 Taken 02:33 Cbc With Differential LAB 10/16/24 Complete 02:36 Basic Metabolic Panel LAB 10/16/24 Complete 02:36 Urinalysis Profile LAB 10/16/24 Complete 02:36 Nurse Driven Alvarado SHEA 10/16/24 In Process Removal Pro 02:36 Lactic Acid LAB 10/16/24 Complete 02:36 Blood Cult ERICA 10/16/24 In Process 02:36 0.9%Nacl 1000ml (Ns PHA 10/16/24 In Process 1000ml) 03:00 12 Lead Ekg Tracing- EKG 10/16/24 Logged Technical 02:42 Norepinephrin 4mg/Ns PHA 10/16/24 Complete 250ml (Levophed 4mg 02:52 Propofol 1000 Mg/100 PHA 10/16/24 Complete Ml (Diprivan 1000mg 02:53 Propofol 1000 Mg/100 PHA 10/16/24 In Process Ml (Diprivan 1000mg 03:30 Norepinephrin 4mg/Ns PHA 10/16/24 In Process 250ml (Levophed 4mg 03:30 Arterial Blood Gas + RT 10/16/24 Transmitted 03:12 Ventilator Settings RT 10/16/24 Transmitted 03:11 Ng Tube Insertion CPOE 10/16/24 Transmitted 03:11 Culture Urine ERICA 10/16/24 In Process 03:29 Cardiac Panel LAB 10/16/24 Complete 02:36 Edm Admit Bridge Order ADM 10/16/24 Transmitted 03:52 Admit Orders ADM 10/16/24 Transmitted 03:52 Pantoprazole 40mg Inj PHA 10/16/24 Complete (Protonix 40mg Inj 04:00 Zosyn 3.375gm+Ns 50ml PHA 10/16/24 Complete (Zosyn 3.375gm+Ns 04:00 Vancomycin 1g/250ml PHA 10/16/24 Complete Kit (Vancomycin 1g/2 04:00 Admit Orders ADM 10/16/24 Transmitted 03:56 Critcal Care Consult CONPHYSVC 10/16/24 Transmitted 03:56 Covid Rna Naat LAB 10/16/24 Complete 04:08 Influenza Type A & B, LAB 10/16/24 Complete Rapid 04:08 Rapid (Group A Strep) LAB 10/16/24 Complete 04:08 Vs Per Cvr Protocol CPOE 10/16/24 Transmitted 04:03 Daily Weights CPOE 10/16/24 Transmitted 04:03 I&O Q Shift CPOE 10/16/24 Transmitted 04:03 Activity: Bed Rest CPOE 10/16/24 Transmitted 04:03 Npo Except For Meds CPOE 10/16/24 Transmitted 04:03 Albuterol 0.083% PHA 10/16/24 In Process 2.5mg/3ml (Proventil 06:00 Ipratropium 0.5 PHA 10/16/24 In Process Mg/2.5 Ml Inh 06:00 Magnesium LAB 10/16/24 Complete 04:10 Phosphorus LAB 10/16/24 Complete 04:10 D-Dimer LAB 10/16/24 Complete 04:10 Ammonia LAB 10/16/24 Complete 04:10 Thyroid Stimulating LAB 10/16/24 Complete Hormone 04:10 Us Carotid Duplex US 10/16/24 Taken 04:03 Echo 2-D Complete ECHO 10/16/24 Logged 04:03 Vancomycin Protocol PHA 10/16/24 In Process (Vancomycin Protocol 04:30 Methylprednisolone PHA 10/16/24 In Process Succ 125mg (Solu-Medr 04:30 Acetaminophen 325 Tab PHA 10/16/24 In Process (Tylenol 325mg Tab 04:30 Acetaminophen 650mg PHA 10/16/24 In Process Supp (Tylenol 650mg 04:30 Lactulose 20 Gm/30 Ml PHA 10/16/24 In Process Udcup (Constulose 04:30 Docusate Sodium 100 PHA 10/16/24 In Process Mg Cap (Colace 100mg 04:30 Temazepam 15 Mg Cap PHA 10/16/24 In Process (Restoril 15 Mg Cap) 04:30 Ondansetron 4mg Inj PHA 10/16/24 In Process (Zofran 4mg Inj) 04:30 Hydralazine 20mg Inj PHA 10/16/24 In Process (Apresoline 20mg In 04:30 Telemetry Monitoring CPOE 10/16/24 Transmitted 04:03 Initiate SHEA 10/16/24 In Process Hyperglycemia Protoco 04:03 Insulin Regular, PHA 10/16/24 In Process Human 3ml (Humulin R 07:30 B-Type Natriuretic LAB 10/16/24 Complete Peptide 04:14 Troponin I High LAB 10/16/24 Complete Sensitivity 04:15 Cefepime Hcl 1 Gm PHA 10/16/24 In Process Vial (Maxipime 1 Gm Vi 05:00 Vancomycin 2gm/500 Ml PHA 10/16/24 In Process Bag (Vancomycin 2g 05:00 Vancomycin 1.5 Gm/250 PHA 10/17/24 In Process Ml Bag (Vancomycin 05:00 Comprehensive LAB 10/16/24 Complete Metabolic Panel 04:10 Current Medications Medications (Trade) Dose Ordered Sig/Cassandra Route PRN Reason Start Time Stop Time Status Last Admin Dose Admin Norepinephrine 250 ml @ As Directed STK-MED ONCE IV 10/16/24 02:52 10/16/24 02:52 DC Norepinephrine 250 ml @ 0 mls/hr PROTOCOL IV 10/16/24 03:30 11/15/24 03:29 10/16/24 04:12 Propofol 100 ml @ As Directed STK-MED ONCE IV 10/16/24 02:53 10/16/24 02:54 DC Propofol (DIPRivan 1000MG/ 100ML) 1,000 mg PROTOCOL PRN IV SEDATION 10/16/24 03:30 11/15/24 03:29 10/16/24 06:22 Sodium Chloride 1,000 ml @ 125 mls/hr ONCE ONCE IV 10/16/24 03:00 10/16/24 10:59 10/16/24 03:04 Vital Signs Date Time Temp Pulse Resp B/P (MAP) Pulse Ox O2 Delivery O2 Flow Rate FiO2 10/16/24 06:36 88 65 10/16/24 04:32 80 16 136/42 100 Ventilator+ 15 65 10/16/24 04:12 137/45 10/16/24 04:02 83 16 142/47 100 Ventilator+ 15 65 10/16/24 03:36 77 16 141/69 100 Ventilator+ 15 65 10/16/24 02:47 103 16 157/70 100 Ventilator+ 15 100 10/16/24 02:30 74 65 10/16/24 02:21 97.0 106 20 150/63 98 BVM 15.0 10/16/24 02:21 97.0 106 20 150/63 78 Room Air* 0 21 We will perform diagnostic labs, advanced imaging and administer medications according to the patient's complaint. Once the results are available, will review and personally interpreted the labs to rule out any acute life- threatening emergency the trach require immediate intervention and treatment. I will then re-evaluate the patient after treatment and diagnostic exams have return to determine whether the patient requires any further testing, can safely be discharged home or need further admission to hospital for additional treatment and evaluation. 2:29 a.m.. patient was emergently intubated upon arrival to the ER. She was placed on mechanical ventilator and a portable chest x-ray showed good placement of the ET tube and the position was adjusted for optimal gas exchange. Right hemidiaphragm is elevated 2:58 a.m. 12 lead EKG and labs requested.-reviewed labs Patient accepted by Dr. Jewell for admission and further mx Medical Decision Making MDM MDM: Differential diagnosis: Altered mental status and unresponsiveness likely related to a metabolic disorder/sepsis however primary neurological event is also certainly likely. Rationale: Tests considered and ordered secondary to shared decision making include: labs, ECG and radiology Previous outside records reviewed: Old ER visits. Risk of complication and/or morbidity or mortality of patient management: None Medications-Per medication reconciliation Need for hospitalization: Patient does meet criteria for hospitalization. Need for emergency major/minor surgery: No There are no social concerns with this patient. Prescription drug management Prescriptions will include symptomatic care Patient's prior external medical records from other ER visits were reviewed by me as indicated. Prior testing and results from previous visits were reviewed. Prior tests were taken into account with medical decision making and resource utilization, independent historian/historians were used to obtain complete medical history. I independently interpreted the test that were performed, results were reviewed by me and considered findings on radiology if ordered. Medical management and examination interpretation discussions were had by me with other qualified healthcare professionals as indicated for the patient's care. Procedure Procedure Dictation: Procedure note-endotracheal intubation to 20 9:00 a.m. Indication for the procedure-septic shock, altered mental status with obtundation GCS of 6 Premedication and anesthesia-etomidate 20 mg IV, rocuronium 50 mg IV, heart rate pulse oximetry respiratory rate and blood pressure were continuously monitored before during and after the procedure by an RN please see the nursing flow sheet for details for the timing of the medications. Performing physician-Monet MARLEY Procedure-deemed emergent during the code and after time-out and pause, 7.5. ET tube was advanced into the trachea after well visualization of the vocal cords under glide scope MAC 4 blade guidance. Bedside confirmation was done with good breath sounds bilaterally to auscultat ion and excellent color change on the capnometer. ET tube was secured in place Postprocedure chest x-ray-ET tube placement was confirmed and position adjusted for optimal gas exchange. Recommendations-patient placed on mechanical ventilator-discussed settings with the RT Intubation Method: orotracheal Tube Size (cm): 7.5 Breath Sounds after Intubation: equal Intubation Complications: no complications Post Intubation Xray: Yes Problem List Problem List: (1) Pneumonia involving right lung (2) Septic shock (3) Acute respiratory failure with hypoxemia (4) Acute metabolic encephalopathy (5) Diabetes mellitus with hyperosmolar coma DX & DISP Disposition: Inpatient Decision to Admit Time: 03:02 Departure Impression: Primary Impression: Acute respiratory failure with hypoxemia Additional Impressions: Acute metabolic encephalopathy, Septic shock, Pneumonia involving right lung, Diabetes mellitus with hyperosmolar coma Condition: Stable Additional Instructions: Patient was informed of all the diagnostic labs and procedures conducted in the emergency room today and demonstrated understanding of the results. I personally reviewed and interpreted all the diagnostic exams performed in the ER today. The patient will be admitted to the hospital for further treatment and evaluation. Disposition-admit to facility Condition-stable/guarded Course-uncertain at this time Pain status-decreased Assessment-exam unchanged Admission Certification- I certify that the patients status is appropriate and is based on my best clinical judgment and the patient's condition as documented in the medical records Referrals: SHAKILA JEWELL MD (PCP) MONET EPPS MD Oct 16, 2024 02:53
[2024-10-16] MEDS: 0.9%NACL 1000ML 1,000 ML IV ONE (03:04)
[2024-10-16] MEDS: proPOFol 1000 MG/100 ML 100 ML IV ONE (03:10)
[2024-10-16] MEDS: NOREPINEPHRIN 4MG/NS 250ML 250 ML IV ONE (03:11)
[2024-10-16 03:28] LABS: APPEARANCE,URINE CLOUDY (CLEAR); BILIRUBIN,URINE NEGATIVE (NEGATIVE); COLOR,URINE LIGHT-YELLOW (YELLOW); GLUCOSE, URINE (UA) NEGATIVE (NEGATIVE); KETONES,URINE NEGATIVE (NEGATIVE); LEUKOCYTE ESTERASE ,URINE 500 Leu/uL (NEGATIVE); NITRATE,URINE NEGATIVE (NEGATIVE); OCCULT BLOOD,URINE SMALL (NEGATIVE); PH,URINE 5.5 (5.0-8.0); PROTEIN,URINE 10 mg/dL (NEGATIVE); UROBILINOGEN,URINE 0.2 mg/dL (0.2-1.0)
[2024-10-16 03:29] LABS: ADD UA MICROSCOPIC YES
[2024-10-16 03:35] LABS: BACTERIA,URINE RARE /HPF (None Seen); MUCUS,URINE RARE LPF (None Seen); SQUAMOUS EPITHELIAL CELL,UR FEW /HPF (0-2); WBC CLUMP FEW /HPF (0-1); WBC,URINE TNTC /HPF (0-1)
[2024-10-16 03:55] LABS: BASOPHILS # (AUTO) 0.07 K/uL (0.00-0.20); BASOPHILS % (AUTO) 0.5 % (0.0-5.0); EOSINOPHILS # (AUTO) 0.01 K/uL (0.00-0.70); EOSINOPHILS % (AUTO) 0.1 % (0.0-8.0); HEMATOCRIT 32.4 % (36-48); IMMATURE GRANULOCYTE ABSOLUTE 0.24 K/uL (0-1); LYMPHOCYTES # (AUTO) 0.6 K/uL (1.0-4.8); LYMPHOCYTES % (AUTO) 3.9 % (21.0-51.0); MEAN CORPUSCULAR HGB CONC 29.6 g/dL (32.0-36.0); MEAN CORPUSCULAR VOLUME 94.5 fL (79-99); MONOCYTES % (AUTO) 6.7 % (3.0-13.0); NEUTROPHILS # (AUTO) 13.4 K/uL (1.8-7.7); NEUTROPHILS % (AUTO) 87.2 % (40.0-77.0); NUCLEATED RED BLOOD CELLS 0.6 % (0.0-0.19); PLATELET COUNT (AUTO) 301 K/uL (130-400); RED BLOOD CELL COUNT(AUTO) 3.43 MIL/uL (4.00-5.50); RED CELL DISTRIBUTION WIDTH 18.3 % (11.0-15.5); WHITE BLOOD COUNT (AUTO) 15.3 K/uL (4.8-10.8)
--- NOTE | 2024-10-16 04:01 | NUR ---
Miryam GUTHRIE NP CONSULTED.
[2024-10-16 04:12] LABS: CREATININE 0.9 mg/dL (0.5-1.0); POTASSIUM 4.9 mmol/L (3.5-5.1)
[2024-10-16] MEDS: NOREPINEPHRIN 4MG/NS 250ML 250 ML IV SCH (04:12)
[2024-10-16] MEDS: proPOFol 1000 MG/100 ML IV PRN (04:13)
[2024-10-16] MEDS: Solu-medROL 125MG VIAL IVP SCH (04:17)
[2024-10-16] MEDS: ZOSYN 3.375GM +NS 50ML IV ONE (04:17)
[2024-10-16] MEDS: PANTOPrazole 40 MG/VIAL IVP ONE (04:18)
[2024-10-16] MEDS: VANCOMYCIN KIT 1 GM/250 ML IV.KIT IV ONE (04:26)
[2024-10-16] MEDS ORDERED: acetaMINOPHEN 325 MG TAB PO PRN (04:30)
[2024-10-16] MEDS ORDERED: acetaMINOPHEN 650 MG SUPPOSITORY RC PRN (04:30)
[2024-10-16] MEDS ORDERED: doCUSate SODIUM 100 MG CAP PO PRN (04:30)
[2024-10-16] MEDS ORDERED: hydrALAZine 20MG/ML VIAL IV PRN (04:30)
[2024-10-16] MEDS ORDERED: TEMAZepam 15 MG CAPSULE PO PRN (04:30)
[2024-10-16] MEDS ORDERED: ondanSETRON 4MG INJ IVP PRN (04:30)
[2024-10-16] MEDS: ceFEPime HCL 1 GM VIAL IVPB SCH (04:30)
[2024-10-16] MEDS ORDERED: VANCOMYCIN PROTOCOL PER PHARMACY IV SCH (04:30)
[2024-10-16 04:35] LABS: RAPID GROUP A STREP negative (NEGATIVE)
[2024-10-16] MEDS: VANCOMYCIN 2GM/500 ML BAG 500 ML IV ONE (04:39)
--- NOTE | 2024-10-16 04:40 | NUR ---
REPORT GIVEN TO ADALBERTO VAZQUEZ
[2024-10-16 04:41] LABS: SARS-CoV-2, RNA, NAAT NEGATIVE SARS CoV-2 (NEGATIVE)
[2024-10-16 04:46] LABS: INFLUENZA TYPE A Negative For Type A (NEGATIVE); INFLUENZA TYPE B Negative For Type B (NEGATIVE)
[2024-10-16 06:17] LABS: ALANINE AMINOTRANSFERASE 9 U/L (12-78); AMMONIA < 10 umol/L (11-32); ASPARTATE AMINOTRANSFERASE 18 U/L (10-37); BILIRUBIN,TOTAL 0.9 mg/dL (0.2-1.0); CARBON DIOXIDE 29 mmol/L (21-32); CHLORIDE 105 mmol/L (101-111); GLOMERULAR FILTR. RATE CALC 55 mL/min (>90); GLUCOSE,RANDOM 223 mg/dL (70-105); PHOSPHORUS 3.5 mg/dL (2.5-4.9); POTASSIUM 4.2 mmol/L (3.5-5.1); SODIUM SERUM 145 mmol/L (136-145); THYROID STIMULATING HORMONE 1.32 uIU/mL (0.36-3.74); TOTAL PROTEIN, SERUM 6.6 g/dL (6.0-8.3); UREA NITROGEN, BLOOD 44 mg/dL (7-18)
--- NOTE | 2024-10-16 08:14 | HMCIMG ---
PORTABLE CHEST RADIOGRAPH INDICATION: POST INTUBATION COMPARISON: 08/13/2024 FINDINGS: Tip of endotracheal tube located 1.6 cm above the aman comment tip of NG tube within the distal stomach Heart size is normal. Mild calcific plaque is present along the aortic arch jackson. The pulmonary vascularity and serenity appear normal. Trace linear opacities at the right lung base without consolidation. Right hemidiaphragm remains elevated. No significant pleural effusion noted. No pneumothorax detected. IMPRESSION: Tip of endotracheal tube located 1.6 cm above the aman. Minimal right lung base atelectasis.
[2024-10-16] MEDS: INSULIN humuLIN R 100 UNIT/ML 3ML SQ SCH (08:26)
--- NOTE | 2024-10-16 09:15 | HMCIMG ---
ULTRASOUND THE CAROTID ARTERIES INDICATION: Found unresponsive TECHNIQUE: Interrogation of the right and left common, internal, and external carotid systems were performed using grayscale, color, and spectral Doppler. COMPARISON: None FINDINGS: (CM/SEC) Examination is limited secondary to intubated patient's inability to properly position for this study. RIGHT CCA: 85 ICA: 88 ECA: 98 ICA/CCA ratio: 1.0 LEFT CCA: 90 ICA: 113 ECA: 63 ICA/CCA ratio: 1.3 VERTEBRAL ARTERIES: High resistance antegrade flow bilaterally. Normal Color Doppler flow completely fills the lumen of all major vessels except for mild calcific plaque along the right common carotid arterial bulb jackson. Normal high resistance flow pattern is present throughout all major vessels on Spectral Doppler analysis. IMPRESSION:Limitations as reported. No evidence for high-grade flow-rate limiting stenosis. Parameters as reported.
--- NOTE | 2024-10-16 09:29 | EKG ---
[facility] Test Date: 2024-10-16 Test Time: 03:00:43 Pat Name: MARGARITA PATEL Department: [facility] Room: 227 Gender: F Ripsaw Matcher: [id number] : [id number] Requested By: JESSICA PETERSON Order Number: [id number] Reading MD: Pietro Campos Measurements Intervals [place] Rate: 98 P: 30 VT: 141 QRS: 4 QRSD: 68 T: 63 QT: 335 QTc: 427 Interpretive Statements Sinus rhythm Compared to ECG 08/09/2024 03:49:49 Sinus tachycardia no longer present Atrial premature complex(es) no longer present Prolonged QT interval no longer present Electronically Signed On 10-17-2024 19:58:25 [employer]LECT[employer]ICAL DES[employer] DRAFTER by Pietro Campos Please click the below link to view image of tracing.
[2024-10-16] MEDS ORDERED: rocuRONium bROMide 10MG/1ML 5ML VL IV ONE (12:05)
[2024-10-16] MEDS ORDERED: METH4TAB3 PO (12:56)
[2024-10-16] MEDS: Solu-medROL 40MG VIAL IVP SCH (13:00)
--- NOTE | 2024-10-16 13:00 | CONS ---
[facility] CONSULTATION NOTE Date Patient Seen: Oct 16, 2024 Time of Visit: 12:49 Supervising Physician: Dr. Noah Jones Reason for Consultation: [facility] Primary Care Physician: Sharyn Collins Outpatient Specialists: [facility] Inpatient Consults: Dr. Jones PROBLEM LIST: Acute hypoxic respiratory failure- Intubated in ED on 10/16 for airway protection given altered mental status GCS 6 Acute metabolic encephalopathy Septic shock Acute complicated cystitis Hyperglycemia in the setting of type 2 diabetes mellitus and iatrogenic from glucocorticoid Morbid obesity BMI of 40 Chronic right lung atelectasis History of diabetes mellitus, hypertension, dementia, hyperlipidemia, obesity, CKD HPI: This is 84 year old male with past medical history of diabetes mellitus, hypertension, hyperlipidemia, dementia, CKD, and morbid obesity came to the hospital from SNF with unresponsiveness. She was intubated in the ED for which beyond inpatient services is consulted for critical care management. Reportedly, patient came from senior care being unresponsive last night. EMS reported patient's systolic blood pressure was 82/32 with saturation oxygen was 78% room air. In ED, his GCS was 6, was ambu bag and was difficult intubation access. She was intubated and now sedated in ICU. No family available. Pertinent findings including WBC of 15 hemoglobin of 9.6 platelet count is 300 chemistry is sodium 145 potassium is 4.2 bicarb is 29 BUN is 44 creatinine is 1.0. Glucose is 220, lactic acid is 5.3 this is down from 6.4 yesterday. Calcium is 8.0 magnesium is 1.7 liver function is normal. Ammonia level is less than 10 BNP is 400. TSH is 1.32. COVID flu are negative. Urine with leukocyte esterase 500, WBC of TNTC, hyaline casts positive. PAST MEDICAL HX: HTN DM Dementia PAST SURGICAL HX: noncontributory SOCIAL HISTORY: No tobacco, ETOH, or illicit drug use Coded Allergies: No Known Drug Allergies (Verified Allergy, Unknown, 07/23/21) REVIEW OF SYSTEMS: 12 point ROS reviewed with patient. Pertinent positives mentioned above. Otherwise negative. PHYSICAL EXAM: GENERAL: Sedated, mechanical ventilator HEENT: EOMI, Sclera non icteric, moist mucosa NECK: Supple, no JVD, trachea midline LUNGS: Inspiratory wheezing to right lung, left clear. HEART: Regular rate and rhythm. Normal S1 and S2, without murmurs ABD: Abdomen soft, nontender. Bowel sounds present EXT: No clubbing cyanosis or edema NEURO: Sedated. Unable to assess Vital Signs (last 8hr) Date Time Temp Pulse Resp B/P (MAP) Pulse Ox O2 Delivery O2 Flow Rate FiO2 10/16/24 11:58 88 40 10/16/24 11:03 89 16 147/64 (91) 100 10/16/24 11:00 98.1 85 20 100 10/16/24 10:48 85 16 115/78 (90) 100 10/16/24 10:45 86 19 100 10/16/24 10:33 81 16 130/64 (86) 100 10/16/24 10:30 82 16 100 10/16/24 10:18 81 16 136/57 (83) 100 10/16/24 10:15 80 16 100 10/16/24 10:13 87 65 10/16/24 10:03 80 16 129/62 (84) 100 10/16/24 10:00 81 16 100 10/16/24 09:50 80 16 100 10/16/24 09:48 81 16 135/60 (85) 100 10/16/24 09:35 82 16 100 10/16/24 09:33 81 16 141/62 (88) 100 10/16/24 09:20 80 16 100 10/16/24 09:18 80 16 128/63 (84) 100 10/16/24 09:05 80 16 100 10/16/24 09:03 80 16 125/61 (82) 100 10/16/24 08:50 78 16 100 10/16/24 08:48 78 16 125/58 (80) 100 10/16/24 08:35 79 16 100 10/16/24 08:33 78 16 127/64 (85) 100 10/16/24 08:20 78 16 100 10/16/24 08:18 78 16 125/58 (80) 100 10/16/24 08:14 94 Ventilator+ 60 10/16/24 08:05 77 16 100 10/16/24 08:03 78 16 130/59 (82) 100 10/16/24 07:50 78 16 100 10/16/24 07:48 80 16 134/59 (84) 98 10/16/24 07:45 80 16 99 10/16/24 07:33 97.5 80 16 124/50 (74) 97 11/17/24 07:30 80 16 94 10/16/24 07:18 80 16 113/58 (76) 94 10/16/24 07:15 80 16 91 10/16/24 07:00 79 16 102/51 (68) 100 10/16/24 06:45 81 16 99/49 (66) 100 10/16/24 06:36 88 65 10/16/24 06:30 83 16 89/38 (55) 95 10/16/24 06:15 85 19 149/60 (89) 100 10/16/24 06:00 84 16 84/43 (57) 98 10/16/24 05:45 84 16 138/60 (86) 96 10/16/24 05:30 48 16 132/57 (82) 100 10/16/24 05:15 84 16 100 10/16/24 05:00 96.6 88 16 123/52 (75) 100 10/16/24 05:00 60 10/16/24 05:00 96.6 LABS: Hematology Labs: Test 10/16/24 03:41 Range/Units White Blood Count 15.3 H 4.8-10.8 K/uL Red Blood Count 3.43 L 4.00-5.50 MIL/uL Hemoglobin 9.6 L 12.0-16.0 g/dL Hematocrit 32.4 L 36-48 % Mean Corpuscular Volume 94.5 79-99 fL Mean Corpuscular Hemoglobin 28.0 27.0-33.0 pg Mean Corpuscular Hemoglobin Concent 29.6 L 32.0-36.0 g/dL Red Cell Distribution Width 18.3 H 11.0-15.5 % Platelet Count 301 130-400 K/uL Mean Platelet Volume 10.2 7.5-10.5 fL Immature Granulocyte % (Auto) 1.6 H 0-1 % Neutrophils (%) (Auto) 87.2 H 40.0-77.0 % Lymphocytes (%) (Auto) 3.9 L 21.0-51.0 % Monocytes (%) (Auto) 6.7 3.0-13.0 % Eosinophils (%) (Auto) 0.1 0.0-8.0 % Basophils (%) (Auto) 0.5 0.0-5.0 % Neutrophils # (Auto) 13.4 H 1.8-7.7 K/uL Lymphocytes # (Auto) 0.6 L 1.0-4.8 K/uL Monocytes # (Auto) 1.0 0.1-1.0 K/uL Eosinophils # (Auto) 0.01 0.00-0.70 K/uL Basophils # (Auto) 0.07 0.00-0.20 K/uL Absolute Immature Granulocyte (auto 0.24 0-1 K/uL Nucleated Red Blood Cells 0.6 H 0.0-0.19 % White Cell Morphology Comment See comments Red Blood Cell Morphology See comments Chemistry Labs: Test 10/16/24 12:16 10/16/24 08:03 10/16/24 05:38 10/16/24 03:41 Range/Units Whole Blood Glucose 247 H 70-110 MG/DL Lactic Acid Level 5.3 H 0.8-2.5 mmol/L Sodium Level 145 136-145 mmol/L Potassium Level 4.2 3.5-5.1 mmol/L Chloride Level 105 101-111 mmol/L Carbon Dioxide Level 29 21-32 mmol/L Blood Urea Nitrogen 44 H 7-18 mg/dL Creatinine 1.0 0.5-1.0 mg/dL Glomerular Filtration Rate Calc 55 >90 mL/min Random Glucose 223 H 70-105 mg/dL Total Calcium 8.0 L 8.5-10.1 mg/dL Phosphorus Level 3.5 2.5-4.9 mg/dL Magnesium Level 1.70 L 1.80-2.40 mg/dL Total Bilirubin 0.9 0.2-1.0 mg/dL Aspartate Amino Transf (AST/SGOT) 18 10-37 U/L Alanine Aminotransferase (ALT/SGPT) 9 L 12-78 U/L Alkaline Phosphatase 134 50-136 U/L Ammonia < 10 L 11-32 umol/L Troponin I High Sensitivity 33 4-50 ng/L Total Protein 6.6 6.0-8.3 g/dL Albumin 2.0 L 3.5-5.0 g/dL Thyroid Stimulating Hormone (TSH) 1.32 0.36-3.74 uIU/mL Total Creatine Kinase 30 # 21-232 U/L B-Type Natriuretic Peptide 446 H 0-100 pg/mL Coagulation Labs: Test 10/16/24 05:38 Range/Units D-Dimer Quantitative (PE/DVT) 706 *H 0-500 ng/mL DIAGNOSTICS / RADIOLOGY RESULTS: See Chest xray PLAN NEURO: Minimize central acting medications as possible. Fall Precautions. Well lighted room through the day and minimize interruptions through the night to prevent acute delirium. Holiday from sedation in the mornings PULMONARY: Supplemental 02 as needed Titrate Fio2 to keep Spo2 > or = 90% DuoNebs and CPT as needed IS hourly while awake for pulmonary hygiene Out of bed to chair as tolerated VAP Bundle Vent/BIPAP Settings: ACVC Send ABG Adjust ETT CARDIOVASCULAR: Follow hemodynamics. Titrate vasopressor to keep MAP >65 or systolic blood pressure >95mmHg DRIPS: Propofol Levophed LINES: PIV Place PICC GI & NUTRITION: Continue nutritional support Aspirations precautions Prokinetic agents and laxatives as needed KIDNEYS & ELECTROLYTES: Strict monitoring of intake and output Daily weights Avoid nephrotoxic agents Monitor electrolytes and replace as needed Goal urine output of 30mL/hr or 0.5mL/kg/hr ENDOCRINE: Maintain blood glucose between 100-180 at all times. Insulin sliding scale for blood glucose management INFECTIOUS DISEASE: Trend temperature. Zarco-culture if febrile. Micro: [Urine, respiratory Antibiotics: Cefepime Vancomycin HEMATOLOGY & COAGULATION: Monitor H&H. Keep Hgb > 7 Transfuse 1 unit of PRBC for Hgb < 7 Transfuse 1 pack of platelets of platelets < 20, 000 Watch for any signs and symptoms of bleeding SKIN: Pressure ulcer prevention per facility protocol Rehab: PT/OT Prophylaxis: GI: Protonix DVT: Lovenox Code Status: Full Resuscitation Disposition: ICU Other: Total patient care time exceeds 35 minutes excluding all procedures. Case was discussed and seen with my supervising physician. The above plan was formulated and agreed upon. CLAUDIA KRUSE [facility] Oct 16, 2024 13:00
[2024-10-16] MEDS ORDERED: AZIT250T9 PO (13:22)
[2024-10-16] MEDS ORDERED: MEMA1TAB PO (13:33)
[2024-10-16] MEDS ORDERED: VALP250S19 PO (13:33)
[2024-10-16] MEDS ORDERED: GABA250S11 PO (13:33)
[2024-10-16 13:40] LABS: ABG BASE EXCESS -6.3 mmol/L (-2.0-3.0); ABG HCO3 16.8 mmol/L (21.0-28.0); ABG OXYGEN SATURATION 78.6 % (94.0-98.0); ABG PCO2 23 mmHg (32-45); CARBON MONOXIDE 0.3 % (0.5-1.5); DEVICE COMMENT LBMILTON; HHb 21.1; PO2, ARTERIAL BG < 45.0 mmHg (83.0-108.0); VENT MODE, BG AC (ROOM AIR)
[2024-10-16] MEDS ORDERED: CHOL500051 PO (13:45)
[2024-10-16] MEDS ORDERED: ATOR10 PO (13:45)
[2024-10-16] MEDS ORDERED: INSREG SQ (13:45)
[2024-10-16] MEDS ORDERED: FAMO20TA8 PO (13:45)
[2024-10-16] MEDS ORDERED: SERT-439 PO (13:45)
[2024-10-16] MEDS: 0.9%NACL 1000ML 1,503 ML IV ONE (13:53)
[2024-10-16 14:20] LABS: INR 1.13 (0.85-1.15); PROTHROMBIN TIME 12.1 SEC (9.6-11.6)
[2024-10-16 14:22] LABS: PARTIAL THROMBOPLASTIN TIME 27.2 SEC (26.3-35.5)
--- NOTE | 2024-10-16 16:18 | NUR ---
CM Nurse Assessment Pt intubated unable to get information no family available. Pt came per ambulance from SNF Addendum: 10/16/24 at 1620 by KATHY BERNAL RN CM Amended: Links added.
--- NOTE | 2024-10-16 19:50 | HMCIMG ---
US VENOUS DOPPLER BILATERAL CLINICAL HISTORY: ELEVATED D-DIMER COMPARISON: None FINDINGS: Bilateral lower extremity venous Doppler ultrasound was performed. The left greater saphenous, common femoral, deep femoral, femoral , popliteal veins are widely patent and easily compressible with the ultrasound probe. Calf veins appear normal as well. There is normal response to compression and augmentation. There is incomplete compressibility of the right mid superficial femoral vein. The remainder of the right lower extremity demonstrates compressibility and flow in the venous vasculature. IMPRESSION: Nonocclusive thrombus in the right mid superficial femoral vein.
--- NOTE | 2024-10-16 20:22 | HP ---
HISTORY AND PHYSICAL NOTE DATE OF CONSULTATION: 10/16/24 REASON FOR CONSULTATION: Shortness of breath HISTORY OF PRESENT ILLNESS: This is an 84-year-old morbidly obese female who was brought in by EMS from the senior living [facility] with complaints of being unresponsive. Per EMS report patient's systolic blood pressures were 82/32 she was barely responsive with the initial saturations of 78% on room air. Patient apparently also had a chest x- ray done yesterday which showed bilateral pleural effusions right side more than left per EMS report. Patient received fluids and Levophed was started. Her GCS was 6 at presentation to the ED. she was bagged with Ambu bag upon arrival. Intubation attempt was difficult, patient had nasal airway placed by EMT prior to arrival. She was totally obtunded unresponsive to any commands in moderate respiratory distress. Temperature 97 pulse 106 respirations 25. Her chronic medical problems include diabetes mellitus, hypertension, hypercholesterolemia, dementia at baseline, prior endotracheal intubation for sepsis and unresponsiveness., CKD stage 2, morbid obesity No other history was available. Allergies: Coded Allergies: No Known Drug Allergies (Verified Allergy, Unknown, 07/23/21) Home Meds Reported Medications Triamcinolone Acetonide (Triamcinolone Acetonide) 0.1 % Cream.gm., 15 GM TP TID, APPL 05/05/24 Gabapentin (Gabapentin) 250 Mg/5 Ml Solution, 250 MG PO BID, ML 05/05/24 Aspirin (ASPIRIN 81MG CHEW TAB) 81 Mg Tab.chew, 81 MG PO DAILY, TAB.CHEW 05/05/24 Cholecalciferol (Vitamin D3) (Vitamin D3) 125 Mcg (5000 Unit) Tablet, 125 MCG PO DAILY, TAB 02/24/24 Metformin HCl (Metformin HCl) 1,000 Mg Tablet, 1000 MG PO BID, TAB 02/24/24 Lactulose (Lactulose) 10 Gram/15 Ml Solution, 30 ML PEG DAILY, ML 12/28/23 Polyethylene Glycol 3350 (Miralax) 17 Gram Powd.pack, 17 GM PEG DAILY PRN for CONSTIPATION 12/28/23 Sennosides (Senna) 8.6 Mg Tablet, 17.2 MG PEG BID, TAB 12/28/23 Magnesium Oxide (Magnesium Oxide) 400 Mg Magnesium Tablet, 400 MG PEG DAILY, TAB 12/28/23 Famotidine (Famotidine) 20 Mg Tablet, 20 MG PEG DAILY, TAB 12/28/23 Sertraline HCl (Zoloft) 50 Mg Tablet, 50 MG PEG DAILY, TAB 12/28/23 Divalproex Sodium (Depakote) 125 Mg Tablet.dr, 125 MG PEG BID, TAB 12/28/23 Ferrous Sulfate (Ferrous Sulfate) 220 Mg (44 Mg Iron)/5 Ml Elixir, 220 MG PEG DAILY, ML 12/28/23 Multivit &Minerals/Ferrous Fum (Multivitamin Liquid) 9 Mg Iron/15 Ml Liquid, 5 ML PEG DAILY 12/28/23 Guaifenesin/Dextromethorphan (Guaifenesin Dm Syrup) 100 Mg-10 Mg/5 Ml Syrup, 10 ML PEG Q6HPRN PRN for COUGH, ML 12/28/23 Ascorbic Acid (Vitamin C) 500 Mg Powd.pack, 500 MG PEG BID 12/28/23 Atorvastatin Calcium (Atorvastatin Calcium) 10 Mg Tablet, 10 MG PO HS, TAB 10/03/22 Memantine HCl (Namenda) 10 Mg Tablet, 10 MG PO BID, TAB 10/03/22 Past Medical History Past Medical History: Dementia, Diabetes-Type II, High Cholesterol, Hypertension, Renal Disese Additional Past Medical Hx: FAILURE TO THRIVE Surgical History: Unknown Family History: Negative Social History: Negative, Lives [place] History: Not Applicable RN Note Reviewed/Agreed w/PFSH: Yes Review of System Dictation UNABLE TO OBTAIN DETAILED REVIEW OF SYSTEMS THE PATIENT IS OBTUNDED AND UNRESPONSIVE Initial Vital Sign VS Vital Signs Date Time Temp Pulse Resp B/P (MAP) Pulse Ox O2 Delivery O2 Flow Rate FiO2 10/16/24 02:21 97.0 106 20 150/63 78 Room Air* 0 21 ALLERGIES: Coded Allergies: No Known Drug Allergies (Verified Allergy, Unknown, 07/23/21) HOME MEDS: Reported Medications Aspirin (ASPIRIN 81MG CHEW TAB) 81 Mg Tab.chew, 1 TAB PO DAILY for 30 Days, #30 TAB 0 Refills 10/16/24 Sertraline HCl (Sertraline HCl) 50 Mg Tablet, 1 TAB PO DAILY for 30 Days, #30 TAB 0 Refills 10/16/24 Famotidine (Famotidine) 20 Mg Tablet, 20 MG PO DAILY, TAB 10/16/24 Cholecalciferol (Vitamin D3) (Vitamin D3) 125 Mcg (5000 Unit) Capsule, 1 CAP PO DAILY for 30 Days, #30 CAP 0 Refills 10/16/24 Atorvastatin Calcium (LIPITOR) 10 Mg Tab, 1 TAB PO HS for 30 Days, #30 TAB 0 Refills 10/16/24 Insulin Regular, Human (Novolin R) 100 Unit/Ml Vial, 0 SQ ACHS, VIAL 10/16/24 Metformin HCl (Metformin HCl) 1,000 Mg Tablet, 1 TAB PO BID for 30 Days, #60 TAB 0 Refills 10/16/24 Memantine HCl (Namenda) 5 Mg (28)-10 Mg (21) Tab.ds.pk, 2 EACH PO [id number] 10/16/24 Valproate Sodium (Valproic Acid) 250 Mg/5 Ml Solution, 125 MG PO [id number], ML 10/16/24 Gabapentin (Gabapentin) 250 Mg/5 Ml (5 Ml) Solution, 250 MG PO [id number], ML 10/16/24 Azithromycin (Azithromycin) 250 Mg Tablet, 1 TAB PO AD for 4 Days, #6 TAB 0 Refills 2 the first day followed by 1 for days 2-5 10/16/24 Methylprednisolone (Medrol) 4 Mg Tab.ds.pk, 1 TAB PO AD for 6 Days, #21 TAB 0 Refills 6 on day 1 then reduce by one tablet daily until gone 10/16/24 Triamcinolone Acetonide (Triamcinolone Acetonide) 0.1 % Cream.gm., 15 GM TP TID, APPL 05/05/24 Gabapentin (Gabapentin) 250 Mg/5 Ml Solution, 250 MG PO BID, ML 05/05/24 Aspirin (ASPIRIN 81MG CHEW TAB) 81 Mg Tab.chew, 81 MG PO DAILY, TAB.CHEW 05/05/24 Cholecalciferol (Vitamin D3) (Vitamin D3) 125 Mcg (5000 Unit) Tablet, 125 MCG PO DAILY, TAB 02/24/24 Metformin HCl (Metformin HCl) 1,000 Mg Tablet, 1000 MG PO BID, TAB 02/24/24 Lactulose (Lactulose) 10 Gram/15 Ml Solution, 30 ML PEG DAILY, ML 12/28/23 Polyethylene Glycol 3350 (Miralax) 17 Gram Powd.pack, 17 GM PEG DAILY PRN for CONSTIPATION 12/28/23 Sennosides (Senna) 8.6 Mg Tablet, 17.2 MG PEG BID, TAB 12/28/23 Magnesium Oxide (Magnesium Oxide) 400 Mg Magnesium Tablet, 400 MG PEG DAILY, TAB 12/28/23 Famotidine (Famotidine) 20 Mg Tablet, 20 MG PEG DAILY, TAB 12/28/23 Sertraline HCl (Zoloft) 50 Mg Tablet, 50 MG PEG DAILY, TAB 12/28/23 Divalproex Sodium (Depakote) 125 Mg Tablet.dr, 125 MG PEG BID, TAB 12/28/23 Ferrous Sulfate (Ferrous Sulfate) 220 Mg (44 Mg Iron)/5 Ml Elixir, 220 MG PEG DAILY, ML 12/28/23 Multivit &Minerals/Ferrous Fum (Multivitamin Liquid) 9 Mg Iron/15 Ml Liquid, 5 ML PEG DAILY 12/28/23 Guaifenesin/Dextromethorphan (Guaifenesin Dm Syrup) 100 Mg-10 Mg/5 Ml Syrup, 10 ML PEG Q6HPRN PRN for COUGH, ML 12/28/23 Ascorbic Acid (Vitamin C) 500 Mg Powd.pack, 500 MG PEG BID 12/28/23 Atorvastatin Calcium (Atorvastatin Calcium) 10 Mg Tablet, 10 MG PO HS, TAB 10/03/22 Memantine HCl (Namenda) 10 Mg Tablet, 10 MG PO BID, TAB 10/03/22 INPATIENT MEDS: Current Medications Medications Dose Ordered Sig/Cassandra Start Time Stop Time Status Last Admin Propofol 1,000 mg PROTOCOL PRN 10/16/24 03:30 11/15/24 03:29 10/16/24 12:33 Norepinephrine 250 ml @ 0 mls/hr PROTOCOL 10/16/24 03:30 11/15/24 03:29 10/16/24 04:12 Albuterol Sulfate 2.5 mg [id number] 10/16/24 06:00 11/15/24 05:59 Ipratropium Velma 0.5 mg [id number] 10/16/24 06:00 11/15/24 05:59 Vancomycin HCl 1 each AD 10/16/24 04:30 10/30/24 04:29 Acetaminophen 650 mg Q6H PRN 10/16/24 04:30 11/15/24 04:29 Acetaminophen 650 mg Q6H PRN 10/16/24 04:30 11/15/24 04:29 Lactulose 20 gm Q6H PRN 10/16/24 04:30 11/15/24 04:29 Docusate Sodium 100 mg BID PRN 10/16/24 04:30 11/15/24 04:29 Temazepam 15 mg HS PRN 10/16/24 04:30 11/15/24 04:29 Ondansetron HCl 4 mg Q6H PRN 10/16/24 04:30 11/15/24 04:29 Hydralazine HCl 10 mg Q6H PRN 10/16/24 04:30 11/15/24 04:29 Insulin Human Regular INSULIN SLIDING SCAL... ACHS 10/16/24 07:30 11/15/24 07:29 10/16/24 12:19 Cefepime HCl 1 gm Q12H 10/16/24 05:00 10/26/24 04:59 10/16/24 16:11 Vancomycin HCl 250 ml @ 125 mls/hr Q24H 10/17/24 05:00 10/27/24 04:59 Pantoprazole Sodium 40 mg DAILY 10/17/24 09:00 11/16/24 08:59 Enoxaparin Sodium 30 mg BID 10/16/24 21:00 11/15/24 20:59 Methylprednisolone Sodium Succinate 40 mg Q8H 10/16/24 13:00 11/15/24 12:59 VITAL SIGNS Vital Signs Date Time Temp Pulse Resp B/P (MAP) Pulse Ox O2 Delivery O2 Flow Rate FiO2 10/16/24 18:18 86 16 107/54 (71) 100 10/16/24 18:15 87 16 100 10/16/24 18:03 87 16 107/56 (73) 100 10/16/24 18:00 87 16 100 10/16/24 17:50 88 17 100 10/16/24 17:48 89 18 109/58 (75) 100 10/16/24 17:45 88 16 100 10/16/24 17:33 89 18 104/57 (73) 100 10/16/24 17:30 88 18 100 10/16/24 17:18 92 22 114/60 (78) 100 10/16/24 17:15 91 24 100 10/16/24 17:04 94 18 113/83 (93) 100 10/16/24 17:00 90 19 100 10/16/24 16:48 89 20 116/67 (83) 100 10/16/24 16:45 89 19 100 10/16/24 16:34 91 16 145/63 (90) 100 10/16/24 16:30 99.9 92 19 100 10/16/24 16:26 10/16/24 16:03 84 17 115/63 (80) 100 10/16/24 16:00 85 16 100 10/16/24 16:00 96 Ventilator+ 60 10/16/24 15:48 85 23 87/50 (62) 100 10/16/24 15:45 86 17 100 10/16/24 15:33 87 17 93/50 (64) 100 10/16/24 15:30 85 18 100 10/16/24 15:18 87 17 99/51 (67) 100 10/16/24 15:16 88 40 10/16/24 15:15 87 16 100 10/16/24 15:03 87 17 91/50 (64) 100 10/16/24 15:00 100.0 88 18 100 10/16/24 14:48 88 20 110/56 (74) 100 10/16/24 14:45 87 19 100 10/16/24 14:33 85 16 103/52 (69) 100 10/16/24 14:30 86 17 100 10/16/24 14:18 85 18 109/52 (71) 100 10/16/24 14:15 86 16 100 10/16/24 14:03 86 17 109/58 (75) 100 10/16/24 14:00 84 16 100 10/16/24 13:48 83 16 118/52 (74) 100 10/16/24 13:45 82 16 100 10/16/24 13:30 82 16 100 10/16/24 13:18 83 16 129/58 (81) 100 10/16/24 13:15 83 16 100 10/16/24 13:03 84 16 126/57 (80) 100 10/16/24 13:00 84 16 100 10/16/24 12:48 85 16 117/58 (77) 100 10/16/24 12:45 85 16 100 10/16/24 12:33 87 16 109/52 (71) 100 10/16/24 12:30 87 16 100 10/16/24 12:18 87 16 114/55 (74) 100 10/16/24 12:15 88 16 100 10/16/24 12:03 87 16 122/59 (80) 100 10/16/24 12:00 95 Ventilator+ 60 10/16/24 12:00 88 16 100 10/16/24 11:58 88 40 10/16/24 11:48 89 16 120/50 (73) 100 10/16/24 11:45 88 16 100 10/16/24 11:33 99.9 88 16 119/58 (78) 100 10/16/24 11:30 88 16 100 10/16/24 11:18 88 16 134/67 (89) 100 10/16/24 11:15 88 16 100 10/16/24 11:03 89 16 147/64 (91) 100 10/16/24 11:00 98.1 85 20 100 10/16/24 10:48 85 16 115/78 (90) 100 10/16/24 10:45 86 19 100 10/16/24 10:33 81 16 130/64 (86) 100 10/16/24 10:30 82 16 100 10/16/24 10:18 81 16 136/57 (83) 100 10/16/24 10:15 80 16 100 10/16/24 10:13 87 65 10/16/24 10:03 80 16 129/62 (84) 100 10/16/24 10:00 81 16 100 10/16/24 09:50 80 16 100 10/16/24 09:48 81 16 135/60 (85) 100 10/16/24 09:35 82 16 100 10/16/24 09:33 81 16 141/62 (88) 100 10/16/24 09:20 80 16 100 10/16/24 09:18 80 16 128/63 (84) 100 10/16/24 09:05 80 16 100 10/16/24 09:03 80 16 125/61 (82) 100 10/16/24 08:50 78 16 100 10/16/24 08:48 78 16 125/58 (80) 100 10/16/24 08:35 79 16 100 10/16/24 08:33 78 16 127/64 (85) 100 10/16/24 08:20 78 16 100 10/16/24 08:18 78 16 125/58 (80) 100 10/16/24 08:14 94 Ventilator+ 60 10/16/24 08:05 77 16 100 10/16/24 08:03 78 16 130/59 (82) 100 10/16/24 07:50 78 16 100 10/16/24 07:48 80 16 134/59 (84) 98 10/16/24 07:45 80 16 99 10/16/24 07:33 97.5 80 16 124/50 (74) 97 10/16/24 07:30 80 16 94 10/16/24 07:18 80 16 113/58 (76) 94 10/16/24 07:15 80 16 91 10/16/24 07:00 79 16 102/51 (68) 100 10/16/24 06:45 81 16 99/49 (66) 100 10/16/24 06:36 88 65 10/16/24 06:30 83 16 89/38 (55) 95 10/16/24 06:15 85 19 149/60 (89) 100 10/16/24 06:00 84 16 84/43 (57) 98 10/16/24 05:45 84 16 138/60 (86) 96 10/16/24 05:30 48 16 132/57 (82) 100 10/16/24 05:15 84 16 100 10/16/24 05:00 96.6 88 16 123/52 (75) 100 10/16/24 05:00 60 10/16/24 05:00 96.6 10/16/24 04:32 80 16 136/42 100 Ventilator+ 15 65 10/16/24 04:12 137/45 10/16/24 04:02 83 16 142/47 100 Ventilator+ 15 65 10/16/24 03:36 77 16 141/69 100 Ventilator+ 15 65 10/16/24 02:47 103 16 157/70 100 Ventilator+ 15 100 10/16/24 02:30 74 65 10/16/24 02:21 97.0 106 20 150/63 98 BVM 15.0 10/16/24 02:21 97.0 106 20 150/63 78 Room Air* 0 21 PHYSICAL EXAM Physical Exam Dictation General: Unresponsive obtunded spontaneously breathing moderately tachypneic. Head/Face: Normocephalic, atraumatic Eyes: PERRL, EOMI, vision at baseline ENT: oral cavity clear, TMs clear, no signs of infection Neck: Trachea slightly deviated to the right, supple, no nuchal rigidity Cardiovascular: RRR, normal S1/S2, No MRGs, no JVD Respiratory: CTAB, no respiratory distress, No rales or wheezes Abdomen: Soft, non-tender, non-distended, normal bowel sounds, no guarding or rebound. Skin: Warm, dry, normal turgor, no rash MS/Extremity: Pulses equal, no cyanosis, neurovascular intact, FROM Neuro: GCS 6, nonfocal neuro exam. Psych: Normal behavior, mood, and affect normal Extremities-trace edema without any palpable cords, Homans sign is negative LABORATORY RESULTS Laboratory Tests 10/16/24 03:09: Urine Color LIGHT-YELLOW, Urine Appearance CLOUDY, Urine pH 5.5, Urine Specific [place] 1.009, Urine Protein 10, Urine Glucose (UA) NEGATIVE, Urine Ketones NEGATIVE, Urine Occult Blood SMALL, Urine Nitrate NEGATIVE, Urine Bilirubin NEGATIVE, Urine Urobilinogen 0.2, Urine Leukocyte Esterase 500, Urine RBC 2-5, Urine WBC TNTC, Urine WBC Clumps (Auto) FEW, Urine Squamous Epithelial Cells FEW, Urine Bacteria RARE, Urine Hyaline Casts 6-10 10/16/24 03:41: White Blood Count 15.3, Red Blood Count 3.43, Hemoglobin 9.6, Hematocrit 32.4, Mean Corpuscular Volume 94.5, Mean Corpuscular Hemoglobin 28.0, Mean Corpuscular Hemoglobin Concent 29.6, Red Cell Distribution Width 18.3, Platelet Count 301, Mean Platelet Volume 10.2, Immature Granulocyte % (Auto) 1.6, Neutrophils (%) (Auto) 87.2, Lymphocytes (%) (Auto) 3.9, Monocytes (%) (Auto) 6.7, Eosinophils (%) (Auto) 0.1, Basophils (%) (Auto) 0.5, Neutrophils # (Auto) 13.4, Lymphocytes # (Auto) 0.6, Monocytes # (Auto) 1.0, Eosinophils # (Auto) 0.01, Basophils # ( Auto) 0.07, Absolute Immature Granulocyte (auto 0.24, Nucleated Red Blood Cells 0.6, White Cell Morphology Comment See comments, Red Blood Cell Morphology See comments, Sodium Level 144, Potassium Level 4.9, Chloride Level 104, Carbon Dioxide Level 30, Blood Urea Nitrogen 49, Creatinine 0.9, Glomerular Filtration Rate Calc 62, Random Glucose 227, Lactic Acid Level 6.4, Total Calcium 8.8, Total Creatine Kinase 30, Troponin I High Sensitivity 34.3, B-Type Natriuretic Peptide 446 10/16/24 04:09: Influenza Type A Antigen Negative For Type A, Influenza Type B Antigen Negative For Type B, SARS-CoV-2, RNA, NAAT NEGATIVE SARS CoV-2, Group A Streptococcus Rapid negative 10/16/24 05:38: Sodium Level 145, Potassium Level 4.2, Chloride Level 105, Carbon Dioxide Level 29, Blood Urea Nitrogen 44, Creatinine 1.0, Glomerular Filtration Rate Calc 55, Random Glucose 223, Total Calcium 8.0, Troponin I High Sensitivity 33, D-Dimer Quantitative (PE/DVT) 706, Phosphorus Level 3.5, Magnesium Level 1.70, Total Bilirubin 0.9, Aspartate Amino Transf (AST/SGOT) 18, Alanine Aminotransferase (ALT/SGPT) 9, Alkaline Phosphatase 134, Ammonia < 10, Total Protein 6.6, Albumin 2.0, Thyroid Stimulating Hormone (TSH) 1.32 10/16/24 08:03: Lactic Acid Level 5.3 10/16/24 08:16: Whole Blood Glucose 244 10/16/24 12:16: Whole Blood Glucose 247 10/16/24 13:38: Blood Gas Specimen Type Arterial, Arterial Blood pH 7.480, Arterial Blood Partial Pressure CO2 23, Arterial Blood Partial Pressure O2 < 45.0, Arterial Blood HCO3 16.8, Arterial Blood Oxygen Saturation 78.6, Arterial Blood Base Excess -6.3, Hemoglobin (Blood Gas) 5.3, Sodium (Blood Gas) 150, Bedside Potassium (Blood Gas) 2.1, Bedside Chloride (Blood Gas) 125, Bedside Glucose (Blood Gas) 117, Bedside Ionized Calcium (Blood Gas) 0.71, Bedside Lactic Acid (Blood Gas) 2.05, Blood Gas Temperature 37.0, Blood Gas Respiration Rate 16.0, Blood Gas Vent Mode AC, FiO2 40.0, Blood Gas Tidal Volume 450, Blood Gas PEEP 5, Blood Gas Specimen Comment LBMILTON 10/16/24 13:57: Prothrombin Time 12.1, Prothromb Time International Ratio 1.13, Activated Partial Thromboplast Time 27.2 10/16/24 15:44: Whole Blood Glucose 172 PROBLEM LIST: (1) Metabolic encephalopathy ICD Codes: G93.41 - Metabolic encephalopathy; L08.9 - Local infection of the skin and subcutaneous tissue, unspecified (2) Pneumonia involving right lung ICD Codes: J18.9 - Pneumonia, unspecified organism (3) Acute respiratory failure with hypoxemia ICD Codes: J96.01 - Acute respiratory failure with hypoxia (4) Acute metabolic encephalopathy ICD Codes: G93.41 - Metabolic encephalopathy (5) Diabetes mellitus with hyperosmolar coma ICD Codes: E11.01 - Type 2 diabetes mellitus with hyperosmolarity with coma; L08.9 - Local infection of the skin and subcutaneous tissue, unspecified (6) Respiratory failure ICD Codes: J96.90 - Respiratory failure, unspecified, unspecified whether with hypoxia or hypercapnia (7) Severe sepsis ICD Codes: A41.9 - Sepsis, unspecified organism; R65.20 - Severe sepsis without septic shock (8) Altered mental status ICD Codes: R41.82 - Altered mental status, unspecified PLAN Patient intubated for respiratory failure consult critical Care SHAKILA JEWELL MD Oct 16, 2024 20:22
[2024-10-16] MEDS: ENOXAPARIN SODIUM 30 MG/0.3 ML SQ SCH (21:18)
[2024-10-17] VITALS (68 sets, daily range): BP systolic 69–165; BP diastolic 34–110; PULSE 59–88; RESP 4–61; TEMP 97.4–100.3; O2SAT 93–100
[2024-10-17 04:25] LABS: BASOPHILS % (AUTO) 0.5 % (0.0-5.0); EOSINOPHILS # (AUTO) 0.01 K/uL (0.00-0.70); EOSINOPHILS % (AUTO) 0.1 % (0.0-8.0); HEMATOCRIT 33.1 % (36-48); IMMATURE GRANULOCYTE ABSOLUTE 0.11 K/uL (0-1); LYMPHOCYTES # (AUTO) 0.6 K/uL (1.0-4.8); LYMPHOCYTES % (AUTO) 2.8 % (21.0-51.0); MEAN CORPUSCULAR HEMOGLOBIN 28.2 pg (27.0-33.0); MEAN CORPUSCULAR HGB CONC 30.5 g/dL (32.0-36.0); MEAN CORPUSCULAR VOLUME 92.5 fL (79-99); MONOCYTES # (AUTO) 0.3 K/uL (0.1-1.0); MONOCYTES % (AUTO) 1.4 % (3.0-13.0); NEUTROPHILS # (AUTO) 18.6 K/uL (1.8-7.7); NEUTROPHILS % (AUTO) 94.6 % (40.0-77.0); PLATELET COUNT (AUTO) 280 K/uL (130-400); RED BLOOD CELL COUNT(AUTO) 3.58 MIL/uL (4.00-5.50); RED CELL DISTRIBUTION WIDTH 18.9 % (11.0-15.5); WHITE BLOOD COUNT (AUTO) 19.6 K/uL (4.8-10.8)
[2024-10-17 04:44] LABS: CREATININE 0.9 mg/dL (0.5-1.0); POTASSIUM 4.2 mmol/L (3.5-5.1)
[2024-10-17] MEDS: VANCOMYCIN 1.5 GM/250 ML BAG 250 ML IV SCH (04:54)
--- NOTE | 2024-10-17 06:36 | NUR ---
NUCLEAR MEDICINE SPOKE TO NURSE ADALBERTO AT 0634 HOURS, PATIENT IS ON VENTILATOR AND PATIENT DOES NOT FOLLOW COMMANDS.
[2024-10-17] MEDS: PANTOPrazole 40 MG/VIAL IVP SCH (08:31)
--- NOTE | 2024-10-17 09:23 | NUR ---
DCP: RETURN TO [facility] Sarahy spoke to sister Elis Ramirez [phone]. 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 Sister informed pt re admitted and intubated. Sister wanting everything done for pt. D[place]. Sister did not seem to be understanding of goals or care for a hospice pt. Sister wanting pt to remain full code. DCP return to [facility] Nurse Townsend spoke to sister regarding consent for central line.
--- NOTE | 2024-10-17 10:25 | CONS ---
[facility] CONSULTATION NOTE Date Patient Seen: Oct 17, 2024 Time of Visit: 10:25 Supervising Physician: [ ] Reason for Consultation: [ ] Primary Care Physician: Sharyn Collins Outpatient Specialists: JUANITA Inpatient Consults: Dr. Jones PROBLEM LIST: Acute hypoxic respiratory failure- Intubated in ED on 10/16 for airway protection given altered mental status GCS 6 Acute metabolic encephalopathy Septic shock Acute complicated cystitis Hyperglycemia in the setting of type 2 diabetes mellitus and iatrogenic from glucocorticoid Morbid obesity BMI of 40 Chronic right lung atelectasis History of diabetes mellitus, hypertension, dementia, hyperlipidemia, obesity, CKD HPI: This is 84 year old male with past medical history of diabetes mellitus, hypertension, hyperlipidemia, dementia, CKD, and morbid obesity came to the hospital from SNF with unresponsiveness. She was intubated in the ED for which beyond inpatient services is consulted for critical care management. Reportedly, patient came from skilled nursing being unresponsive last night. EMS reported patient's systolic blood pressure was 82/32 with saturation oxygen was 78% room air. In ED, his GCS was 6, was ambu bag and was difficult intubation access. She was intubated and now sedated in ICU. No family available. Pertinent findings including WBC of 15 hemoglobin of 9.6 platelet count is 300 chemistry is sodium 145 potassium is 4.2 bicarb is 29 BUN is 44 creatinine is 1.0. Glucose is 220, lactic acid is 5.3 this is down from 6.4 yesterday. Calcium is 8.0 magnesium is 1.7 liver function is normal. Ammonia level is less than 10 BNP is 400. TSH is 1.32. COVID flu are negative. Urine with leukocyte esterase 500, WBC of TNTC, hyaline casts positive. PAST MEDICAL HX: HTN DM Dementia PAST SURGICAL HX: noncontributory SOCIAL HISTORY: No tobacco, ETOH, or illicit drug use Coded Allergies: No Known Drug Allergies (Verified Allergy, Unknown, 07/23/21) REVIEW OF SYSTEMS: 12 point ROS reviewed with patient. Pertinent positives mentioned above. Otherwise negative. PHYSICAL EXAM: GENERAL: Sedated, mechanical ventilator HEENT: EOMI, Sclera non icteric, moist mucosa NECK: Supple, no JVD, trachea midline LUNGS: Inspiratory wheezing to right lung, left clear. HEART: Regular rate and rhythm. Normal S1 and S2, without murmurs ABD: Abdomen soft, nontender. Bowel sounds present EXT: No clubbing cyanosis or edema NEURO: Sedated. Unable to assess Vital Signs (last 8hr) Date Time Temp Pulse Resp B/P (MAP) Pulse Ox O2 Delivery O2 Flow Rate FiO2 10/17/24 09:42 62 40 10/17/24 08:33 62 16 142/55 (84) 100 10/17/24 08:18 63 16 140/52 (81) 99 10/17/24 08:03 63 16 139/57 (84) 100 10/17/24 07:48 69 16 148/73 (98) 99 10/17/24 07:33 63 16 155/61 (92) 100 10/17/24 07:18 63 16 149/64 (92) 100 10/17/24 07:03 98.1 62 16 152/62 (92) 100 10/17/24 06:14 65 40 10/17/24 04:30 69 115/40 (65) 99 10/17/24 04:15 70 130/57 (81) 99 10/17/24 04:00 97.9 10/17/24 04:00 96 Ventilator+ 40 10/17/24 04:00 97.3 69 130/50 (76) 99 10/17/24 03:45 68 9 165/75 (105) 99 10/17/24 03:35 40 10/17/24 03:30 64 16 136/52 (80) 100 10/17/24 03:15 63 16 128/53 (78) 100 10/17/24 03:08 61 40 10/17/24 03:00 62 16 113/55 (74) 94 10/17/24 02:45 63 16 102/39 (60) 93 10/17/24 02:30 61 16 102/48 (66) 97 LABS: Hematology Labs: Test 10/17/24 04:02 10/16/24 03:41 Range/Units White Blood Count 19.6 H 4.8-10.8 K/uL Red Blood Count 3.58 L 4.00-5.50 MIL/uL Hemoglobin 10.1 L 12.0-16.0 g/dL Hematocrit 33.1 L 36-48 % Mean Corpuscular Volume 92.5 79-99 fL Mean Corpuscular Hemoglobin 28.2 27.0-33.0 pg Mean Corpuscular Hemoglobin Concent 30.5 L 32.0-36.0 g/dL Red Cell Distribution Width 18.9 H 11.0-15.5 % Platelet Count 280 130-400 K/uL Mean Platelet Volume 10.4 7.5-10.5 fL Immature Granulocyte % (Auto) 0.6 0-1 % Neutrophils (%) (Auto) 94.6 H 40.0-77.0 % Lymphocytes (%) (Auto) 2.8 L 21.0-51.0 % Monocytes (%) (Auto) 1.4 L 3.0-13.0 % Eosinophils (%) (Auto) 0.1 0.0-8.0 % Basophils (%) (Auto) 0.5 0.0-5.0 % Neutrophils # (Auto) 18.6 H 1.8-7.7 K/uL Lymphocytes # (Auto) 0.6 L 1.0-4.8 K/uL Monocytes # (Auto) 0.3 0.1-1.0 K/uL Eosinophils # (Auto) 0.01 0.00-0.70 K/uL Basophils # (Auto) 0.10 0.00-0.20 K/uL Absolute Immature Granulocyte (auto 0.11 0-1 K/uL Nucleated Red Blood Cells 0.0 0.0-0.19 % White Cell Morphology Comment See comments Red Blood Cell Morphology See comments Chemistry Labs: Test 10/17/24 08:42 10/17/24 04:02 10/16/24 08:03 10/16/24 05:38 Range/Units Whole Blood Glucose 281 #H 70-110 MG/DL Sodium Level 145 136-145 mmol/L Potassium Level 4.2 3.5-5.1 mmol/L Chloride Level 106 101-111 mmol/L Carbon Dioxide Level 37 H 21-32 mmol/L Blood Urea Nitrogen 39 H 7-18 mg/dL Creatinine 0.9 0.5-1.0 mg/dL Glomerular Filtration Rate Calc 62 >90 mL/min Random Glucose 204 H 70-105 mg/dL Total Calcium 8.6 8.5-10.1 mg/dL Lactic Acid Level 5.3 H 0.8-2.5 mmol/L Phosphorus Level 3.5 2.5-4.9 mg/dL Magnesium Level 1.70 L 1.80-2.40 mg/dL Total Bilirubin 0.9 0.2-1.0 mg/dL Aspartate Amino Transf (AST/SGOT) 18 10-37 U/L Alanine Aminotransferase (ALT/SGPT) 9 L 12-78 U/L Alkaline Phosphatase 134 50-136 U/L Ammonia < 10 L 11-32 umol/L Troponin I High Sensitivity 33 4-50 ng/L Total Protein 6.6 6.0-8.3 g/dL Albumin 2.0 L 3.5-5.0 g/dL Thyroid Stimulating Hormone (TSH) 1.32 0.36-3.74 uIU/mL Test 10/16/24 03:41 Range/Units Total Creatine Kinase 30 # 21-232 U/L B-Type Natriuretic Peptide 446 H 0-100 pg/mL Coagulation Labs: Test 10/16/24 13:57 10/16/24 05:38 Range/Units Prothrombin Time 12.1 H 9.6-11.6 SEC Prothromb Time International Ratio 1.13 0.85-1.15 Activated Partial Thromboplast Time 27.2 26.3-35.5 SEC D-Dimer Quantitative (PE/DVT) 706 *H 0-500 ng/mL DIAGNOSTICS / RADIOLOGY RESULTS: [ ] PLAN NEURO: Minimize central acting medications as possible. Maintain fall precautions, adequate lighting during the day PULMONARY: Supplemental 02 as needed. Maintain aspiration precautions at all times CARDIOVASCULAR: Follow hemodynamics. Vital signs per facility protocol GI & NUTRITION: Continue with nutritional support. Continue stool softeners and laxatives as needed. KIDNEYS & ELECTROLYTES: Strict monitoring of intake, output and overall fluid balance. Avoid nephrotoxic medications to the extent possible. Medications to be dosed according to renal function. Monitor electrolytes and replace as needed ENDOCRINE: Maintain blood glucose between 100-180 at all times. Hypoglycemia protocol in place INFECTIOUS DISEASE: Trend temperature, WBC and procalcitonin level Follow cultures, deescalate antibiotics as soon as possible. Panculture if new onset fever ONCOLOGY/HEMATOLOGY/COAGULATION: Monitor for s/s of bleeding Monitor hemoglobin, coagulation studies as needed SKIN: Pressure ulcer prevention per facility protocol Specialty mattress ORTHO/REHAB: Continue PT/OT Prophylaxis: Continue GI and DVT prophylaxis Code Status: Full Resuscitation Disposition: TBD Other: Total patient care time exceeds 35 minutes excluding all procedures. USHA REILLY MD Oct 17, 2024 10:25
--- NOTE | 2024-10-17 10:39 | PN ---
[facility] PROGRESS NOTE Date Patient Seen: Oct 17, 2024 Time of Visit: 10:37 Supervising Physician: Noah Lennon Primary Care Physician: Sharyn Collins Outpatient Specialists: JUANITA Inpatient Consults: Noah Lennon PROBLEM LIST: Acute hypoxic respiratory failure- Intubated in ED on 10/16 for airway protection given altered mental status GCS 6 Acute metabolic encephalopathy Septic shock Acute complicated cystitis Hyperglycemia in the setting of type 2 diabetes mellitus and iatrogenic from glucocorticoid Morbid obesity BMI of 40 Chronic right lung atelectasis History of diabetes mellitus, hypertension, dementia, hyperlipidemia, obesity, CKD INTERVAL HISTORY: 10/17 patient is awake off of sedation this morning not following commands but tracking. She has been started on SBT 5/5/40%. We will continue to utilize CPAP for now and do ABG in an hour and to see if we can extubate her. Otherwise lab this morning with WBC up to 19 from 15 likely from glucocorticoid. We can decrease steroid to Q 12 hours. Otherwise no fever overnight with a T-max of 98.8. She remains on vasopressors with Levophed low dose. Continue to wean down as tolerated. Given vasopressor requirement and leukocytosis, we will up the coverage to possible MDRO with meropenem. We can discontinue vancomycin if MRSA negative. REVIEW OF SYSTEMS: 12 point ROS reviewed with patient. Pertinent positives mentioned above. Otherwise negative. PHYSICAL EXAM: GENERAL: Sedated, mechanical ventilator HEENT: EOMI, Sclera non icteric, moist mucosa NECK: Supple, no JVD, trachea midline LUNGS: Inspiratory wheezing to right lung, left clear. HEART: Regular rate and rhythm. Normal S1 and S2, without murmurs ABD: Abdomen soft, nontender. Bowel sounds present EXT: No clubbing cyanosis or edema NEURO: Sedated. Unable to assess Vital Signs (last 8hr) Date Time Temp Pulse Resp B/P (MAP) Pulse Ox O2 Delivery O2 Flow Rate FiO2 10/17/24 09:42 62 40 10/17/24 08:33 62 16 142/55 (84) 100 10/17/24 08:18 63 16 140/52 (81) 99 10/17/24 08:03 63 16 139/57 (84) 100 10/17/24 07:48 69 16 148/73 (98) 99 10/17/24 07:33 63 16 155/61 (92) 100 10/17/24 07:18 63 16 149/64 (92) 100 10/17/24 07:03 98.1 62 16 152/62 (92) 100 10/17/24 06:14 65 40 10/17/24 04:30 69 115/40 (65) 99 10/17/24 04:15 70 130/57 (81) 99 10/17/24 04:00 97.9 10/17/24 04:00 96 Ventilator+ 40 10/17/24 04:00 97.3 69 130/50 (76) 99 10/17/24 03:45 68 9 165/75 (105) 99 10/17/24 03:35 40 10/17/24 03:30 64 16 136/52 (80) 100 10/17/24 03:15 63 16 128/53 (78) 100 10/17/24 03:08 61 40 10/17/24 03:00 62 16 113/55 (74) 94 10/17/24 02:45 63 16 102/39 (60) 93 LABS: Hematology Labs: Test 10/17/24 04:02 10/16/24 03:41 Range/Units White Blood Count 19.6 H 4.8-10.8 K/uL Red Blood Count 3.58 L 4.00-5.50 MIL/uL Hemoglobin 10.1 L 12.0-16.0 g/dL Hematocrit 33.1 L 36-48 % Mean Corpuscular Volume 92.5 79-99 fL Mean Corpuscular Hemoglobin 28.2 27.0-33.0 pg Mean Corpuscular Hemoglobin Concent 30.5 L 32.0-36.0 g/dL Red Cell Distribution Width 18.9 H 11.0-15.5 % Platelet Count 280 130-400 K/uL Mean Platelet Volume 10.4 7.5-10.5 fL Immature Granulocyte % (Auto) 0.6 0-1 % Neutrophils (%) (Auto) 94.6 H 40.0-77.0 % Lymphocytes (%) (Auto) 2.8 L 21.0-51.0 % Monocytes (%) (Auto) 1.4 L 3.0-13.0 % Eosinophils (%) (Auto) 0.1 0.0-8.0 % Basophils (%) (Auto) 0.5 0.0-5.0 % Neutrophils # (Auto) 18.6 H 1.8-7.7 K/uL Lymphocytes # (Auto) 0.6 L 1.0-4.8 K/uL Monocytes # (Auto) 0.3 0.1-1.0 K/uL Eosinophils # (Auto) 0.01 0.00-0.70 K/uL Basophils # (Auto) 0.10 0.00-0.20 K/uL Absolute Immature Granulocyte (auto 0.11 0-1 K/uL Nucleated Red Blood Cells 0.0 0.0-0.19 % White Cell Morphology Comment See comments Red Blood Cell Morphology See comments Chemistry Labs: Test 10/17/24 08:42 10/17/24 04:02 10/16/24 08:03 10/16/24 05:38 Range/Units Whole Blood Glucose 281 #H 70-110 MG/DL Sodium Level 145 136-145 mmol/L Potassium Level 4.2 3.5-5.1 mmol/L Chloride Level 106 101-111 mmol/L Carbon Dioxide Level 37 H 21-32 mmol/L Blood Urea Nitrogen 39 H 7-18 mg/dL Creatinine 0.9 0.5-1.0 mg/dL Glomerular Filtration Rate Calc 62 >90 mL/min Random Glucose 204 H 70-105 mg/dL Total Calcium 8.6 8.5-10.1 mg/dL Lactic Acid Level 5.3 H 0.8-2.5 mmol/L Phosphorus Level 3.5 2.5-4.9 mg/dL Magnesium Level 1.70 L 1.80-2.40 mg/dL Total Bilirubin 0.9 0.2-1.0 mg/dL Aspartate Amino Transf (AST/SGOT) 18 10-37 U/L Alanine Aminotransferase (ALT/SGPT) 9 L 12-78 U/L Alkaline Phosphatase 134 50-136 U/L Ammonia < 10 L 11-32 umol/L Troponin I High Sensitivity 33 4-50 ng/L Total Protein 6.6 6.0-8.3 g/dL Albumin 2.0 L 3.5-5.0 g/dL Thyroid Stimulating Hormone (TSH) 1.32 0.36-3.74 uIU/mL Test 10/16/24 03:41 Range/Units Total Creatine Kinase 30 # 21-232 U/L B-Type Natriuretic Peptide 446 H 0-100 pg/mL Coagulation Labs: Test 10/16/24 13:57 10/16/24 05:38 Range/Units Prothrombin Time 12.1 H 9.6-11.6 SEC Prothromb Time International Ratio 1.13 0.85-1.15 Activated Partial Thromboplast Time 27.2 26.3-35.5 SEC D-Dimer Quantitative (PE/DVT) 706 *H 0-500 ng/mL DIAGNOSTICS / RADIOLOGY RESULTS: [ ] PLAN NEURO: Minimize central acting medications as possible. Fall Precautions. Well lighted room through the day and minimize interruptions through the night to prevent acute delirium. Holiday from sedation in the mornings PULMONARY: Supplemental 02 as needed Titrate Fio2 to keep Spo2 > or = 90% DuoNebs and CPT as needed IS hourly while awake for pulmonary hygiene Out of bed to chair as tolerated VAP Bundle Vent/BIPAP Settings: ACVC Send ABG Adjust ETT CARDIOVASCULAR: Follow hemodynamics. Titrate vasopressor to keep MAP >65 or systolic blood pressure >95mmHg DRIPS: Propofol Levophed LINES: PIV Place PICC GI & NUTRITION: Continue nutritional support Aspirations precautions Prokinetic agents and laxatives as needed KIDNEYS & ELECTROLYTES: Strict monitoring of intake and output Daily weights Avoid nephrotoxic agents Monitor electrolytes and replace as needed Goal urine output of 30mL/hr or 0.5mL/kg/hr ENDOCRINE: Maintain blood glucose between 100-180 at all times. Insulin sliding scale for blood glucose management INFECTIOUS DISEASE: Trend temperature. Zarco-culture if febrile. Micro: [Urine, respiratory Antibiotics: Cefepime Vancomycin HEMATOLOGY & COAGULATION: Monitor H&H. Keep Hgb > 7 Transfuse 1 unit of PRBC for Hgb < 7 Transfuse 1 pack of platelets of platelets < 20, 000 Watch for any signs and symptoms of bleeding SKIN: Pressure ulcer prevention per facility protocol Rehab: PT/OT Prophylaxis: GI: Protonix DVT: Lovenox Code Status: Full Resuscitation Disposition: ICU Other: Total patient care time exceeds 35 minutes excluding all procedures. Case was discussed and seen with my supervising physician. The above plan was formulated and agreed upon. CLAUDIA KRUSE [facility] Oct 17, 2024 10:39
[2024-10-17 10:59] LABS: INR 1.11 (0.85-1.15); PROTHROMBIN TIME 11.9 SEC (9.6-11.6)
[2024-10-17 11:00] LABS: PARTIAL THROMBOPLASTIN TIME 29.5 SEC (26.3-35.5)
[2024-10-17] MEDS ORDERED: VALPROATE SODIUM PO SCH (11:00)
[2024-10-17] MEDS ORDERED: MEMANTINE HCL PO SCH (11:00)
[2024-10-17 11:28] LABS: ABG HCO3 27.5 mmol/L (21.0-28.0); ABG OXYGEN SATURATION 98.1 % (94.0-98.0); ABG PCO2 37 mmHg (32-45); ABG PH 7.489 (7.350-7.450); CARBON MONOXIDE 0.3 % (0.5-1.5); CPAP, BG 5 cm H2O; DEVICE COMMENT RR ROSIE, RN; HHb 1.9; PO2, ARTERIAL BG 123.4 mmHg (83.0-108.0); VENT MODE, BG CPAP PS 5 (ROOM AIR)
[2024-10-17] MEDS: MEROPENEM 1 GM in 0.9%NACL 100ML 100 ML IVPB SCH (11:47)
--- NOTE | 2024-10-17 12:28 | NUR ---
EXTUBATED, NGT REMOVED.
--- NOTE | 2024-10-17 13:32 | PN ---
PROGRESS NOTE Date of Service: Oct 17, 2024 Time of Service: 13:31 SUBJECTIVE: [ No new complaints ] REVIEW OF SYSTEMS CONSTITUTIONAL: Denies fever, chills, or fatigue. HEAD/FACE: No signs of trauma. EENT: Denies eye pain, blurred vision, double vision, or light sensitivity. RESPIRATORY: Denies shortness of breath, cough, wheezing CARDIOVASCULAR: Denies chest pain, palpitation, syncope GASTROINTESTINAL/ABDOMINAL: Denies abdominal pain, constipation, diarrhea, nausea or vomiting GENITOURINARY: Denies dysuria or hematuria. MUSCULOSKELETAL: Denies joint pain, tenderness, or trauma. INTEGUMENTARY: Denies rash or itchiness NEUROLOGICAL/PSYCH: Denies anxiety, depression, heat or cold intolerance. PHYSICAL EXAM EYES: Anicteric. Pupils equal and reactive. HENT: No oral thrush seen, moist Oral mucosa NECK: Supple, no JVD or thyromegaly. LUNGS: Good air entry. No rales, no rhonchi. CARDIOVASCULAR: S1, S2 regular. No murmur heard. ABDOMEN: Soft, non tender, bowel sounds present, no organomegaly CENTRAL NERVOUS SYSTEM: Awake, alert, oriented x 3. No focal deficits. SKIN: No rashes, no swelling. LYMPHATICS: No peripheral lymphadenopathy MUSCULOSKELETAL: No joint swelling, erythema or tenderness. EXTREMITIES: No cyanosis or clubbing BACK: No deformity, no pressure ulcer. GENITOURINARY: No dysuria or hematuria Vital Signs (last 8hr) Date Time Temp Pulse Resp B/P (MAP) Pulse Ox O2 Delivery O2 Flow Rate FiO2 10/17/24 12:51 Ventilator 10/17/24 12:33 Aerosol Mask+ 40 10/17/24 12:33 81 28 137/61 97 Aerosol Face Mask 40 10/17/24 12:28 88 27 10.0 40 10/17/24 12:19 99.3 82 30 140/79 99 Ventilator 40 10/17/24 12:03 82 28 140/66 99 Ventilator 40 10/17/24 12:00 99 Ventilator+ 40 10/17/24 11:48 83 14 139/77 99 Ventilator 40 10/17/24 11:33 83 22 124/88 99 Ventilator 40 10/17/24 11:18 79 26 116/85 99 Ventilator 40 10/17/24 11:04 81 21 130/58 99 Ventilator 40 10/17/24 10:19 40 10/17/24 10:19 80 40 10/17/24 10:19 85 22 114/86 99 10/17/24 10:15 80 16 99 10/17/24 10:03 75 20 116/70 99 10/17/24 09:55 75 9 114/68 99 10/17/24 09:42 62 40 10/17/24 09:33 63 16 137/54 99 10/17/24 09:33 63 16 137/54 (81) 99 10/17/24 09:27 63 16 132/90 (104) 99 10/17/24 09:27 63 16 132/90 99 10/17/24 09:18 69 16 122/57 (78) 100 10/17/24 09:18 69 16 122/57 100 10/17/24 09:03 65 16 129/56 (80) 99 10/17/24 09:03 65 16 129/56 99 10/17/24 09:00 66 16 141/55 99 10/17/24 09:00 66 16 141/55 (83) 99 10/17/24 08:33 62 16 142/55 100 10/17/24 08:33 62 16 142/55 (84) 100 10/17/24 08:18 63 16 140/52 99 10/17/24 08:18 63 16 140/52 (81) 99 10/17/24 08:15 63 16 99 10/17/24 08:03 63 16 139/57 (84) 100 10/17/24 08:03 98.1 63 16 139/57 100 10/17/24 08:00 100 Ventilator+ 40 10/17/24 08:00 62 16 99 10/17/24 08:00 40 10/17/24 07:48 69 16 148/73 (98) 99 10/17/24 07:33 63 16 155/61 (92) 100 10/17/24 07:18 63 16 149/64 (92) 100 10/17/24 07:03 98.1 62 16 152/62 (92) 100 10/17/24 06:14 65 40 LABS: Laboratory: Test 10/17/24 11:43 10/17/24 11:26 10/17/24 04:02 10/16/24 13:38 Range/Units Whole Blood Glucose 258 H 70-110 MG/DL Blood Gas Specimen Type Arterial Arterial Blood pH 7.489 H 7.350-7.450 Arterial Blood Partial Pressure CO2 37 32-45 mmHg Arterial Blood Partial Pressure O2 123.4 H 83.0-108.0 mmHg Arterial Blood HCO3 27.5 21.0-28.0 mmol/L Arterial Blood Oxygen Saturation 98.1 H 94.0-98.0 % Arterial Blood Base Excess 4.0 H -2.0-3.0 mmol/L Hemoglobin (Blood Gas) 10.3 L 12.0-16.0 g/dL Sodium (Blood Gas) 146 H 136-145 MMOL/L Bedside Potassium (Blood Gas) 4.0 3.4-4.5 MMOL/L Bedside Chloride (Blood Gas) 105 98-107 MMOL/L Bedside Glucose (Blood Gas) 289 H 65-95 MG/DL Bedside Ionized Calcium (Blood Gas) 1.11 L 1.15-1.33 MMOL/L Bedside Lactic Acid (Blood Gas) 2.64 H 0.36-0.75 MMOL/L Blood Gas Temperature 37.0 35.5-37.0 CELSIUS Blood Gas Vent Mode CPAP PS 5 ROOM AIR FiO2 40.0 % Blood Gas CPAP 5 cm H2O Blood Gas Specimen Comment RR BUDDY, GEORGE White Blood Count 19.6 H 4.8-10.8 K/uL Red Blood Count 3.58 L 4.00-5.50 MIL/uL Hemoglobin 10.1 L 12.0-16.0 g/dL Hematocrit 33.1 L 36-48 % Mean Corpuscular Volume 92.5 79-99 fL Mean Corpuscular Hemoglobin 28.2 27.0-33.0 pg Mean Corpuscular Hemoglobin Concent 30.5 L 32.0-36.0 g/dL Red Cell Distribution Width 18.9 H 11.0-15.5 % Platelet Count 280 130-400 K/uL Mean Platelet Volume 10.4 7.5-10.5 fL Immature Granulocyte % (Auto) 0.6 0-1 % Neutrophils (%) (Auto) 94.6 H 40.0-77.0 % Lymphocytes (%) (Auto) 2.8 L 21.0-51.0 % Monocytes (%) (Auto) 1.4 L 3.0-13.0 % Eosinophils (%) (Auto) 0.1 0.0-8.0 % Basophils (%) (Auto) 0.5 0.0-5.0 % Neutrophils # (Auto) 18.6 H 1.8-7.7 K/uL Lymphocytes # (Auto) 0.6 L 1.0-4.8 K/uL Monocytes # (Auto) 0.3 0.1-1.0 K/uL Eosinophils # (Auto) 0.01 0.00-0.70 K/uL Basophils # (Auto) 0.10 0.00-0.20 K/uL Absolute Immature Granulocyte (auto 0.11 0-1 K/uL Nucleated Red Blood Cells 0.0 0.0-0.19 % Prothrombin Time 11.9 H 9.6-11.6 SEC Prothromb Time International Ratio 1.11 0.85-1.15 Activated Partial Thromboplast Time 29.5 26.3-35.5 SEC Sodium Level 145 136-145 mmol/L Potassium Level 4.2 3.5-5.1 mmol/L Chloride Level 106 101-111 mmol/L Carbon Dioxide Level 37 H 21-32 mmol/L Blood Urea Nitrogen 39 H 7-18 mg/dL Creatinine 0.9 0.5-1.0 mg/dL Glomerular Filtration Rate Calc 62 >90 mL/min Random Glucose 204 H 70-105 mg/dL Total Calcium 8.6 8.5-10.1 mg/dL Blood Gas Respiration Rate 16.0 min. Blood Gas Tidal Volume 450 ml Blood Gas PEEP 5 cm H2O Test 10/16/24 08:03 10/16/24 05:38 10/16/24 04:09 10/16/24 03:41 Range/Units Lactic Acid Level 5.3 H 0.8-2.5 mmol/L D-Dimer Quantitative (PE/DVT) 706 *H 0-500 ng/mL Phosphorus Level 3.5 2.5-4.9 mg/dL Magnesium Level 1.70 L 1.80-2.40 mg/dL Total Bilirubin 0.9 0.2-1.0 mg/dL Aspartate Amino Transf (AST/SGOT) 18 10-37 U/L Alanine Aminotransferase (ALT/SGPT) 9 L 12-78 U/L Alkaline Phosphatase 134 50-136 U/L Ammonia < 10 L 11-32 umol/L Troponin I High Sensitivity 33 4-50 ng/L Total Protein 6.6 6.0-8.3 g/dL Albumin 2.0 L 3.5-5.0 g/dL Thyroid Stimulating Hormone (TSH) 1.32 0.36-3.74 uIU/mL Influenza Type A Antigen Negative For Type A NEGATIVE Influenza Type B Antigen Negative For Type B NEGATIVE SARS-CoV-2, RNA, NAAT NEGATIVE SARS CoV-2 NEGATIVE Group A Streptococcus Rapid negative NEGATIVE White Cell Morphology Comment See comments Red Blood Cell Morphology See comments Total Creatine Kinase 30 # 21-232 U/L B-Type Natriuretic Peptide 446 H 0-100 pg/mL Test 10/16/24 03:09 Range/Units Urine Color LIGHT-YELLOW YELLOW Urine Appearance CLOUDY H CLEAR Urine pH 5.5 5.0-8.0 Urine Specific [place] 1.009 1.001-1.031 Urine Protein 10 H NEGATIVE mg/dL Urine Glucose (UA) NEGATIVE NEGATIVE mg/dL Urine Ketones NEGATIVE NEGATIVE mg/dL Urine Occult Blood SMALL H NEGATIVE Urine Nitrate NEGATIVE NEGATIVE Urine Bilirubin NEGATIVE NEGATIVE mg/dL Urine Urobilinogen 0.2 0.2-1.0 mg/dL Urine Leukocyte Esterase 500 H NEGATIVE Zahra/uL Urine RBC 2-5 H 0-1 /HPF Urine WBC TNTC H 0-1 /HPF Urine WBC Clumps (Auto) FEW 0-1 /HPF Urine Squamous Epithelial Cells FEW 0-2 /HPF Urine Bacteria RARE None Seen /HPF Urine Hyaline Casts 6-10 H 0-1 /LPF /LPF DIAGNOSTICS / RADIOLOGY: [ ] ASSESSMENT: [ Acute hypoxic respiratory failure- Intubated in ED on 10/16 for airway protection given altered mental status GCS 6 Acute metabolic encephalopathy Septic shock Acute complicated cystitis Hyperglycemia in the setting of type 2 diabetes mellitus and iatrogenic from glucocorticoid Morbid obesity BMI of 40 Chronic right lung atelectasis History of diabetes mellitus, hypertension, dementia, ] PLAN: [ ] SHAKILA JEWELL MD Oct 17, 2024 13:32
--- NOTE | 2024-10-17 14:12 | HMCIMG ---
CT HEAD/BRAIN W/O CONTRAST HISTORY: Right-sided weakness COMPARISON: None TECHNIQUE: Multiple sequential axial images of the head were obtained from the base of the skull through vertex. Patient was not given contrast through intravenous route. FINDINGS: The ventricles and extraventricular CSF spaces are dilated consistent with cerebral atrophy. Nonspecific white matter changes seen. There is no midline shift, mass effect or herniation. No acute intracranial bleed is seen. Visualized portion of the paranasal sinuses are grossly within normal limits. IMPRESSION: 1. No acute intracranial bleed is seen. 2. Atrophy with white matter changes. CT was performed with one or more following dose reduction techniques: automated exposure control, adjustment of the mA and kv according to patient's size, or use of a iterative reconstruction technique.
--- NOTE | 2024-10-17 14:17 | HMCIMG ---
CHEST 1VW HISTORY: Intubated COMPARISON: 10/16/2024 FINDINGS: A frontal projection of the chest was obtained. Prominent interstitial markings are seen with possible superimposed infiltrates. Poor inspiratory effort is seen. The heart is borderline enlarged. Endotracheal tube is seen with distal tip at 2.6 cm above aman. Aortic calcifications are seen. IMPRESSION: 1. Prominent interstitial markings are seen with possible superimposed infiltrates.
--- NOTE | 2024-10-17 16:57 | NUR ---
REPORT GIVEN TO GEORGE DEUTSCH
--- NOTE | 2024-10-17 16:57 | NUR ---
SPEECH TRIGGER COMPLETED. Pt IS AN 83 Y.O. FEMALE ADMITTED SECONDARY TO SEPSIS AND RESPIRATORY FAILURE. Pt HAS A PAST MEDICAL HISTORY SIGNIFICANT FOR HYPERTENSION, DM TYPE 2, Hx OF PEG PLACEMENT, HX OF DEMENTIA, HYPERCHOLESTEROLEMIA, CKD STAGE 2, AND MORBID OBESITY. SPEECH THERAPY NOT WARRANTED AT THIS TIME DUE TO Hx OF PATIENT MEETING NUTRITION/HYDRATION VIA PEG WITH NO ISSUES. RECREATIONAL COUNSELOR COORDINATED WITH NURSE GOODWIN. ALL QUESTIONS ANSWERED AT THIS TIME. Addendum: 10/17/[address]ERRI URBINA Amended: Links added.
--- NOTE | 2024-10-17 17:09 | NUR ---
[facility] Consult: Patient assessed by wound healing team. See wound assessment. Assessment and recommendations provided to primary nurse. Education provided. Addendum: 10/18/24 at 1621 by AURA CRUZ RN RN/ Amended: Links added.
--- NOTE | 2024-10-17 17:45 | NUR ---
PT TRANSFERRED VIA BED TO ROOM 227
[2024-10-17] MEDS: Solu-medROL 40MG VIAL IVP SCH (18:16)
[2024-10-17] MEDS: BALSAM PERU/CASTOR OIL 60 GM TUBE TP SCH (21:00)
--- NOTE | 2024-10-17 22:42 | HMCIMG ---
CHEST 1VW HISTORY: PICC line placement COMPARISON: None FINDINGS: A frontal projection of the chest was obtained. Mild bilateral pulmonary infiltrates is seen. Poor inspiratory effort is seen. The heart is borderline enlarged. PICC line is seen entering from the left with distal tip in the plane of the atriocaval junction. Tortuosity of the aorta is seen. IMPRESSION: 1. Mild bilateral pulmonary infiltrates are seen may be related to mild pulmonary vascular congestion with possible superimposed pneumonitis.
[2024-10-18] VITALS (11 sets, daily range): BP systolic 105–134; BP diastolic 52–72; PULSE 71–85; RESP 18–20; TEMP 98.5–99.3; O2SAT 95–100
--- NOTE | 2024-10-18 | NUR ---
Informed on-call for valerie, Sudha Ann, of water coming out from the peg tube and base of the tube when administering the water flush. Ordered KUB, repeated back order.
[2024-10-18] MEDS ORDERED: DIATR MEGLU/DIATRIZOATE SODIUM 30 ML BOTTLE ONE (01:26)
--- NOTE | 2024-10-18 01:48 | HMCIMG ---
ABD 1VW HISTORY: PEG tube COMPARISON: 05/10/2024 FINDINGS: A frontal projection of the abdomen was obtained. Contrast was given through PEG tube with opacification of stomach and small bowel loops. PEG tube is seen within the stomach. No extravasation of contrast is seen. Minimal small bowel dilatation is seen. Fecal material is seen in the colon. Degenerative changes of the thoracolumbar spine are noted. IMPRESSION: 1. Minimal small bowel dilatation. PEG tube is seen with distal tip in the stomach.
--- NOTE | 2024-10-18 01:51 | HMCIMG ---
CHEST 1VW HISTORY: Intubated COMPARISON: 10/17/2024 FINDINGS: A frontal projection of the chest was obtained. The study is limited due to poor positioning. There is elevation of right hemidiaphragm. Endotracheal tube is not well visualized due to patient's overlying chin. The heart is borderline enlarged. Degenerative changes are seen. Aortic calcifications are seen. IMPRESSION: 1. Findings as described above. Limited study.
[2024-10-18 04:01] LABS: BASOPHILS # (AUTO) 0.03 K/uL (0.00-0.20); BASOPHILS % (AUTO) 0.2 % (0.0-5.0); HEMATOCRIT 28.3 % (36-48); IMMATURE GRANULOCYTE ABSOLUTE 0.08 K/uL (0-1); LYMPHOCYTES # (AUTO) 0.5 K/uL (1.0-4.8); LYMPHOCYTES % (AUTO) 4.1 % (21.0-51.0); MEAN CORPUSCULAR HEMOGLOBIN 27.8 pg (27.0-33.0); MEAN CORPUSCULAR HGB CONC 31.1 g/dL (32.0-36.0); MEAN CORPUSCULAR VOLUME 89.6 fL (79-99); MONOCYTES # (AUTO) 0.7 K/uL (0.1-1.0); MONOCYTES % (AUTO) 5.2 % (3.0-13.0); NEUTROPHILS # (AUTO) 11.7 K/uL (1.8-7.7); NEUTROPHILS % (AUTO) 89.9 % (40.0-77.0); PLATELET COUNT (AUTO) 254 K/uL (130-400); RED BLOOD CELL COUNT(AUTO) 3.16 MIL/uL (4.00-5.50); RED CELL DISTRIBUTION WIDTH 18.6 % (11.0-15.5)
[2024-10-18 04:11] LABS: CREATININE 0.7 mg/dL (0.5-1.0); POTASSIUM 4.2 mmol/L (3.5-5.1)
[2024-10-18] MEDS: IpraTROPium 0.5 MG/2.5 ML INH IH SCH (07:08)
[2024-10-18] MEDS: ALBUTEROL 0.083% 2.5 MG/3 ML INH IH SCH (07:08)
--- NOTE | 2024-10-18 08:29 | PN ---
PROGRESS NOTE PROGRESS NOTE DATE OF PROGRESS NOTE: 10/18/24 SUBJECTIVE: no new complaints, has peg tube leakage VITAL SIGNS Vital Signs Date Time Temp Pulse Resp B/P (MAP) Pulse Ox O2 Delivery O2 Flow Rate FiO2 10/18/24 08:17 98.4 74 18 105/52 98 Room Air 10/18/24 07:11 2.0 28 PHYSICAL EXAM: Physical Exam Dictation General: Unresponsive obtunded spontaneously breathing moderately tachypneic. Head/Face: Normocephalic, atraumatic Eyes: PERRL, EOMI, vision at baseline ENT: oral cavity clear, TMs clear, no signs of infection Neck: Trachea slightly deviated to the right, supple, no nuchal rigidity Cardiovascular: RRR, normal S1/S2, No MRGs, no JVD Respiratory: CTAB, no respiratory distress, No rales or wheezes Abdomen: Soft, non-tender, non-distended, normal bowel sounds, no guarding or rebound. Skin: Warm, dry, normal turgor, no rash MS/Extremity: Pulses equal, no cyanosis, neurovascular intact, FROM Neuro: GCS 6, nonfocal neuro exam. Psych: Normal behavior, mood, and affect normal Extremities-trace edema without any palpable cords, Homans sign is negative LABORATORY: Laboratory Result(s) Test 10/17/24 08:42 10/17/24 11:26 10/17/24 11:43 10/17/24 18:08 Whole Blood Glucose 281 MG/DL (70-110) 258 MG/DL (70-110) 145 MG/DL (70-110) Blood Gas Specimen Type Arterial Arterial Blood pH 7.489 (7.350-7.450) Arterial Blood Partial Pressure CO2 37 mmHg (32-45) Arterial Blood Partial Pressure O2 123.4 mmHg (83.0-108.0) Arterial Blood HCO3 27.5 mmol/L (21.0-28.0) Arterial Blood Oxygen Saturation 98.1 % (94.0-98.0) Arterial Blood Base Excess 4.0 mmol/L (-2.0-3.0) Hemoglobin (Blood Gas) 10.3 g/dL (12.0-16.0) Sodium (Blood Gas) 146 MMOL/L (136-145) Bedside Potassium (Blood Gas) 4.0 MMOL/L (3.4-4.5) Bedside Chloride (Blood Gas) 105 MMOL/L (98-107) Bedside Glucose (Blood Gas) 289 MG/DL (65-95) Bedside Ionized Calcium (Blood Gas) 1.11 MMOL/L (1.15-1.33) Bedside Lactic Acid (Blood Gas) 2.64 MMOL/L (0.36-0.75) Blood Gas Temperature 37.0 CELSIUS (35.5-37.0) Blood Gas Vent Mode CPAP PS 5 (ROOM AIR) FiO2 40.0 % Blood Gas CPAP 5 cm H2O Blood Gas Specimen Comment YOSHI GOODWIN RN Test 10/18/24 03:35 10/18/24 05:13 White Blood Count 13.0 K/uL (4.8-10.8) Red Blood Count 3.16 MIL/uL (4.00-5.50) Hemoglobin 8.8 g/dL (12.0-16.0) Hematocrit 28.3 % (36-48) Mean Corpuscular Volume 89.6 fL (79-99) Mean Corpuscular Hemoglobin 27.8 pg (27.0-33.0) Mean Corpuscular Hemoglobin Concent 31.1 g/dL (32.0-36.0) Red Cell Distribution Width 18.6 % (11.0-15.5) Platelet Count 254 K/uL (130-400) Mean Platelet Volume 10.8 fL (7.5-10.5) Immature Granulocyte % (Auto) 0.6 % (0-1) Neutrophils (%) (Auto) 89.9 % (40.0-77.0) Lymphocytes (%) (Auto) 4.1 % (21.0-51.0) Monocytes (%) (Auto) 5.2 % (3.0-13.0) Eosinophils (%) (Auto) 0.0 % (0.0-8.0) Basophils (%) (Auto) 0.2 % (0.0-5.0) Neutrophils # (Auto) 11.7 K/uL (1.8-7.7) Lymphocytes # (Auto) 0.5 K/uL (1.0-4.8) Monocytes # (Auto) 0.7 K/uL (0.1-1.0) Eosinophils # (Auto) 0.00 K/uL (0.00-0.70) Basophils # (Auto) 0.03 K/uL (0.00-0.20) Absolute Immature Granulocyte (auto 0.08 K/uL (0-1) Nucleated Red Blood Cells 0.0 % (0.0-0.19) Sodium Level 146 mmol/L (136-145) Potassium Level 4.2 mmol/L (3.5-5.1) Chloride Level 109 mmol/L (101-111) Carbon Dioxide Level 32 mmol/L (21-32) Blood Urea Nitrogen 35 mg/dL (7-18) Creatinine 0.7 mg/dL (0.5-1.0) Glomerular Filtration Rate Calc 84 mL/min (>90) Random Glucose 199 mg/dL (70-105) Total Calcium 8.5 mg/dL (8.5-10.1) Whole Blood Glucose 176 MG/DL (70-110) Bedside Glucose Comment Notified Nurse INPATIENT MEDS: Current Medications Medications Dose Ordered Sig/Cassandra Start Time Stop Time Status Last Admin Propofol 1,000 mg PROTOCOL PRN 10/16/24 03:30 11/15/24 03:29 10/17/24 05:42 Norepinephrine 250 ml @ 0 mls/hr PROTOCOL 10/16/24 03:30 11/15/24 03:29 10/17/24 02:13 Albuterol Sulfate 2.5 mg [id number] 10/16/24 06:00 11/15/24 05:59 10/18/24 07:08 Ipratropium Lakin 0.5 mg [id number] 10/16/24 06:00 11/15/24 05:59 10/18/24 07:08 Acetaminophen 650 mg Q6H PRN 10/16/24 04:30 11/15/24 04:29 Acetaminophen 650 mg Q6H PRN 10/16/24 04:30 11/15/24 04:29 Lactulose 20 gm Q6H PRN 10/16/24 04:30 11/15/24 04:29 Docusate Sodium 100 mg BID PRN 10/16/24 04:30 11/15/24 04:29 Temazepam 15 mg HS PRN 10/16/24 04:30 11/15/24 04:29 Ondansetron HCl 4 mg Q6H PRN 10/16/24 04:30 11/15/24 04:29 Hydralazine HCl 10 mg Q6H PRN 10/16/24 04:30 11/15/24 04:29 Insulin Human Regular INSULIN SLIDING SCAL... ACHS 10/16/24 07:30 11/15/24 07:29 10/17/24 11:50 Pantoprazole Sodium 40 mg DAILY 10/17/24 09:00 11/16/24 08:59 10/17/24 08:31 Enoxaparin Sodium 30 mg BID 10/16/24 21:00 11/15/24 20:59 10/17/24 20:40 Methylprednisolone Sodium Succinate 40 mg Q12H 10/17/24 17:00 11/15/24 12:59 10/18/24 05:02 Meropenem 1 gm/ Sodium Chloride 100 ml @ 33.333 mls/ hr Q12H 10/17/24 10:30 10/27/24 10:29 10/17/24 23:24 Sertraline HCl 50 mg DAILY 10/18/24 09:00 11/17/24 08:59 Wound Care/ Dressing Products 1 CRISTÓBAL AD TO WOUND ON L... TID 10/17/24 21:00 11/16/24 20:59 10/17/24 21:00 PROBLEM LIST: (1) Metabolic encephalopathy ICD Code: G93.41 - Metabolic encephalopathy; L08.9 - Local infection of the skin and subcutaneous tissue, unspecified (2) Pneumonia involving right lung ICD Code: J18.9 - Pneumonia, unspecified organism (3) Acute respiratory failure with hypoxemia ICD Code: J96.01 - Acute respiratory failure with hypoxia (4) Acute metabolic encephalopathy ICD Code: G93.41 - Metabolic encephalopathy (5) Diabetes mellitus with hyperosmolar coma ICD Code: E11.01 - Type 2 diabetes mellitus with hyperosmolarity with coma; L08.9 - Local infection of the skin and subcutaneous tissue, unspecified (6) Respiratory failure ICD Code: J96.90 - Respiratory failure, unspecified, unspecified whether with hypoxia or hypercapnia (7) Severe sepsis ICD Code: A41.9 - Sepsis, unspecified organism; R65.20 - Severe sepsis without septic shock (8) Altered mental status ICD Code: R41.82 - Altered mental status, unspecified PLAN: patient improving and extubated consulted gi for peg tube leakage SHAKILA JEWELL MD Oct 18, 2024 08:29
[2024-10-18] MEDS ORDERED: COMPOUND IV MISC 1 EACH IVSOLN MISC PRN (08:30)
[2024-10-18] MEDS ORDERED: BALSAM PERU/CASTOR OIL 60 GM TUBE TP SCH (09:00)
[2024-10-18] MEDS: SERTraline HCL 50 MG TABLET PO SCH (09:41)
[2024-10-18] MEDS: LACTULOSE 20 GM/30 ML UDCUP PO PRN (10:35)
--- NOTE | 2024-10-18 11:24 | NUR ---
SALLY BANDA/CLARISSE ZAVALA spoke to [facility] with Clarisse. States patient is reaccepted back to facility once medically cleared. CM to arrange EMS. CM attempted to contact sister Elis Jensen [phone] with update about possible transfer today. No answer, unable to leave message. Addendum: 10/18/24 at 1126 by SANDOVAL GARCIA CM Amended: Links added.
[2024-10-18] MEDS: furoSEMIDE 20MG VIAL IV SCH (17:25)
--- NOTE | 2024-10-18 17:58 | NUR ---
KELLY VAZQUEZ OF [facility] CALLED REPORT AND EMS ALSO CALLED FOR ENGINE BUILDER, SPOKE TO SHWETA.
--- NOTE | 2024-10-18 20:09 | NUR ---
EMS- TRANSFER TO [facility] Rolf Cummins here to transfer patient to [facility]. Tele removed prior to discharge.
--- NOTE | 2024-10-18 20:09 | PN ---
[facility] PROGRESS NOTE Date Patient Seen: Oct 18, 2024 Time of Visit: 13:01 Supervising Physician: KIKE TRUJILLO MD Primary Care Physician: Sharyn Collins Outpatient Specialists: JUANITA Inpatient Consults: Noah Lennon PROBLEM LIST: Acute hypoxic respiratory failure- Intubated in ED on 10/16 for airway protection given altered mental status GCS 6 Acute metabolic encephalopathy secondary to Septic shock secondary to acute complicated cystitis due to Proteus present on admission Septic shock Acute complicated cystitis Hyperglycemia in the setting of type 2 diabetes mellitus and iatrogenic from glucocorticoid Morbid obesity BMI of 40 Chronic right lung atelectasis dementia hyperlipidemia obesity Hypertensin Diabetes Mellitus type 2 chronic Kidney disease stage 2 INTERVAL HISTORY: 10/17 patient is awake off of sedation this morning not following commands but tracking. She has been started on SBT 5/40%. We will continue to utilize CPAP for now and do ABG in an hour and to see if we can extubate her. Otherwise lab this morning with WBC up to 19 from 15 likely from glucocorticoid. We can decrease steroid to Q 12 hours. Otherwise no fever overnight with a T-max of 98.8. She remains on vasopressors with Levophed low dose. Continue to wean down as tolerated. Given vasopressor requirement and leukocytosis, we will up the coverage to possible MDRO with meropenem. We can discontinue vancomycin if MRSA negative. 10/18 Patient is seen and examined at the bedside, he initially admitted due to AMS with metabolic encephalopathy related to septic shock with acute complicated cystitis present on admission with cultures positive for Proteus, patient is awake, alert, well oriented, on O2 NC, no signs of peg tube leak , KUB shows with position of peg tube, otherwise diuresis will be added with Lasix 20 mg IV every 12 hours and KCL 40 meq via peg daily. We will continue monitoring closely. REVIEW OF SYSTEMS: 12 point ROS reviewed with patient. Pertinent positives mentioned above. Otherwise negative. PHYSICAL EXAM: GENERAL: Sedated, mechanical ventilator HEENT: EOMI, Sclera non icteric, moist mucosa NECK: Supple, no JVD, trachea midline LUNGS: Inspiratory wheezing to right lung, left clear. HEART: Regular rate and rhythm. Normal S1 and S2, without murmurs ABD: Abdomen soft, nontender. Bowel sounds present EXT: No clubbing cyanosis or edema NEURO: Sedated. Unable to assess Vital Signs (last 8hr) Date Time Temp Pulse Resp B/P (MAP) Pulse Ox O2 Delivery O2 Flow Rate FiO2 10/18/24 19:25 98.4 78 20 134/67 95 Nasal Cannula 2.0 10/18/24 19:13 85 18 10/18/24 17:17 98.8 71 20 110/62 96 Nasal Cannula 10/18/24 12:29 98.6 85 20 131/72 100 Nasal Cannula LABS: Hematology Labs: Test 10/18/24 03:35 Range/Units White Blood Count 13.0 #H 4.8-10.8 K/uL Red Blood Count 3.16 L 4.00-5.50 MIL/uL Hemoglobin 8.8 L 12.0-16.0 g/dL Hematocrit 28.3 L 36-48 % Mean Corpuscular Volume 89.6 79-99 fL Mean Corpuscular Hemoglobin 27.8 27.0-33.0 pg Mean Corpuscular Hemoglobin Concent 31.1 L 32.0-36.0 g/dL Red Cell Distribution Width 18.6 H 11.0-15.5 % Platelet Count 254 130-400 K/uL Mean Platelet Volume 10.8 H 7.5-10.5 fL Immature Granulocyte % (Auto) 0.6 0-1 % Neutrophils (%) (Auto) 89.9 H 40.0-77.0 % Lymphocytes (%) (Auto) 4.1 L 21.0-51.0 % Monocytes (%) (Auto) 5.2 3.0-13.0 % Eosinophils (%) (Auto) 0.0 0.0-8.0 % Basophils (%) (Auto) 0.2 0.0-5.0 % Neutrophils # (Auto) 11.7 H 1.8-7.7 K/uL Lymphocytes # (Auto) 0.5 L 1.0-4.8 K/uL Monocytes # (Auto) 0.7 0.1-1.0 K/uL Eosinophils # (Auto) 0.00 0.00-0.70 K/uL Basophils # (Auto) 0.03 0.00-0.20 K/uL Absolute Immature Granulocyte (auto 0.08 0-1 K/uL Nucleated Red Blood Cells 0.0 0.0-0.19 % Chemistry Labs: Test 10/18/24 16:54 10/18/24 05:13 10/18/24 03:35 Range/Units Whole Blood Glucose 262 H 70-110 MG/DL Bedside Glucose Comment Notified Nurse Sodium Level 146 H 136-145 mmol/L Potassium Level 4.2 3.5-5.1 mmol/L Chloride Level 109 101-111 mmol/L Carbon Dioxide Level 32 21-32 mmol/L Blood Urea Nitrogen 35 H 7-18 mg/dL Creatinine 0.7 0.5-1.0 mg/dL Glomerular Filtration Rate Calc 84 >90 mL/min Random Glucose 199 H 70-105 mg/dL Total Calcium 8.5 8.5-10.1 mg/dL Coagulation Labs: Test 10/17/24 04:02 Range/Units Prothrombin Time 11.9 H 9.6-11.6 SEC Prothromb Time International Ratio 1.11 0.85-1.15 Activated Partial Thromboplast Time 29.5 26.3-35.5 SEC DIAGNOSTICS / RADIOLOGY RESULTS: [ ] PLAN : Add Lasix 20 mg IV every 12 hours KCL 40 meq po daily NEURO: Minimize central acting medications as possible. Maintain fall precautions, adequate lighting during the day PULMONARY: Supplemental 02 as needed. Maintain aspiration precautions at all times CARDIOVASCULAR: Follow hemodynamics. Vital signs per facility protocol GI & NUTRITION: Continue with nutritional support. Continue stool softeners and laxatives as needed. KIDNEYS & ELECTROLYTES: Strict monitoring of intake, output and overall fluid balance. Avoid nephrotoxic medications to the extent possible. Medications to be dosed according to renal function. Monitor electrolytes and replace as needed ENDOCRINE: Maintain blood glucose between 100-180 at all times. Hypoglycemia protocol in place INFECTIOUS DISEASE: Trend temperature, WBC and procalcitonin level Follow cultures, deescalate antibiotics as soon as possible. Panculture if new onset fever ONCOLOGY/HEMATOLOGY/COAGULATION: Monitor for s/s of bleeding Monitor hemoglobin, coagulation studies as needed SKIN: Pressure ulcer prevention per facility protocol Specialty mattress ORTHO/REHAB: Continue PT/OT Prophylaxis: Continue GI and DVT prophylaxis Code Status: Full Resuscitation Disposition: TBD Other: Total patient care time exceeds 35 minutes excluding all procedures. ATTESTATION BY PHYSICIAN Documentation assistance provided by a scribe, information recorded by the scribe was done at my direction and has been reviewed and validated by me." CASSANDRA TREJO MD I personally scribed for CASSANDRA TREJO MD ([email or web address]) on 10/18/24 at 20:09. Electronically submitted by Kylee Valle ([email or web address]). CASSANDRA TREJO MD Oct 18, 2024 20:09
--- NOTE | 2024-10-18 21:42 | CONS ---
GASTROENTEROLOGY CONSULTATION NOTE Date of Consultation: Oct 18, 2024 Time of Consultation: 21:42 History of Present Illness: [ ] Review of Systems: CONSTITUTIONAL: No malaise or change in sensation of wellbeing. ENMT: No rhinorrhea, otorrhea, sinus pain, ear ache. CARDIOVASCULAR: No angina, palpitations, orthopnea or paroxysmal dyspnea. RESPIRATORY: No SOB. GASTROINTESTINAL: No abdominal pain, nausea, vomiting, diarrhea, hematemesis, melena or change in the patient's habitual bowel movements consistency/number. GENITOURINARY: No dysuria, hematuria or change in bladder continence. MUSCULOSKELETAL: No new muscle pain or decrease in muscular strength. No new joint swelling, redness or tenderness. SKIN: No new rash. Past Medical History: [ ] Past Surgical History: [ ] Past Social History: [ ] Family History: [ ] Coded Allergies: No Known Drug Allergies (Verified Allergy, Unknown, 07/23/21) Physical Exam: GEN: Awake, alert, oriented in person, time and place, and in no acute distress. HEENT: No sinus tenderness. Tympanic membranes were not examined. No rhinorrhea. Oral pharyngeal mucosa is pink, moist and within normal limits. Neck is supple with no cervical lymphadenopathy, thyromegaly or JVD. CHEST: Inspection, palpation and percussion of the chest were unremarkable. Lung auscultation revealed normal breath sounds bilaterally. CARDIAC: PMI is within normal limits. Heart sounds are regular. Normal S1, S2. No gallop or murmur. ABD: Soft, non-tender and not distended. No peritoneal signs on palpation. No organomegaly. Normal bowel sounds. EXT: No cyanosis or clubbing. No edema. SKIN: Intact. No rashes. JOINTS: No evidence of synovitis or acute arthritis. NEURO: Alert and oriented to name, place and person. Cranial nerve examination is unremarkable. No focal motor deficits. Normal speech. Gait is normal. Strength is normal. Vital Sign (Last 24 Hours) 10/18/24 10/18/24 19:25 20:00 Temp 98.4 Pulse 78 Resp 20 B/P (MAP) 134/67 Pulse Ox 95 O2 Delivery Nasal Cannula* O2 Flow Rate 2 FiO2 28 Intake & Output (last 24hrs) 10/17/24 10/17/24 10/18/24 15:00 23:00 07:00 Intake Total 19.5 ml 178 ml 200.0 ml Output Total 600 ml Balance 19.5 ml 178 ml -400.0 ml Laboratory: [ ] Laboratory: Test 10/18/24 16:54 10/18/24 05:13 10/18/24 03:35 10/17/24 11:26 Range/Units Whole Blood Glucose 262 H 70-110 MG/DL Bedside Glucose Comment Notified Nurse White Blood Count 13.0 #H 4.8-10.8 K/uL Red Blood Count 3.16 L 4.00-5.50 MIL/uL Hemoglobin 8.8 L 12.0-16.0 g/dL Hematocrit 28.3 L 36-48 % Mean Corpuscular Volume 89.6 79-99 fL Mean Corpuscular Hemoglobin 27.8 27.0-33.0 pg Mean Corpuscular Hemoglobin Concent 31.1 L 32.0-36.0 g/dL Red Cell Distribution Width 18.6 H 11.0-15.5 % Platelet Count 254 130-400 K/uL Mean Platelet Volume 10.8 H 7.5-10.5 fL Immature Granulocyte % (Auto) 0.6 0-1 % Neutrophils (%) (Auto) 89.9 H 40.0-77.0 % Lymphocytes (%) (Auto) 4.1 L 21.0-51.0 % Monocytes (%) (Auto) 5.2 3.0-13.0 % Eosinophils (%) (Auto) 0.0 0.0-8.0 % Basophils (%) (Auto) 0.2 0.0-5.0 % Neutrophils # (Auto) 11.7 H 1.8-7.7 K/uL Lymphocytes # (Auto) 0.5 L 1.0-4.8 K/uL Monocytes # (Auto) 0.7 0.1-1.0 K/uL Eosinophils # (Auto) 0.00 0.00-0.70 K/uL Basophils # (Auto) 0.03 0.00-0.20 K/uL Absolute Immature Granulocyte (auto 0.08 0-1 K/uL Nucleated Red Blood Cells 0.0 0.0-0.19 % Sodium Level 146 H 136-145 mmol/L Potassium Level 4.2 3.5-5.1 mmol/L Chloride Level 109 101-111 mmol/L Carbon Dioxide Level 32 21-32 mmol/L Blood Urea Nitrogen 35 H 7-18 mg/dL Creatinine 0.7 0.5-1.0 mg/dL Glomerular Filtration Rate Calc 84 >90 mL/min Random Glucose 199 H 70-105 mg/dL Total Calcium 8.5 8.5-10.1 mg/dL Blood Gas Specimen Type Arterial Arterial Blood pH 7.489 H 7.350-7.450 Arterial Blood Partial Pressure CO2 37 32-45 mmHg Arterial Blood Partial Pressure O2 123.4 H 83.0-108.0 mmHg Arterial Blood HCO3 27.5 21.0-28.0 mmol/L Arterial Blood Oxygen Saturation 98.1 H 94.0-98.0 % Arterial Blood Base Excess 4.0 H -2.0-3.0 mmol/L Hemoglobin (Blood Gas) 10.3 L 12.0-16.0 g/dL Sodium (Blood Gas) 146 H 136-145 MMOL/L Bedside Potassium (Blood Gas) 4.0 3.4-4.5 MMOL/L Bedside Chloride (Blood Gas) 105 98-107 MMOL/L Bedside Glucose (Blood Gas) 289 H 65-95 MG/DL Bedside Ionized Calcium (Blood Gas) 1.11 L 1.15-1.33 MMOL/L Bedside Lactic Acid (Blood Gas) 2.64 H 0.36-0.75 MMOL/L Blood Gas Temperature 37.0 35.5-37.0 CELSIUS Blood Gas Vent Mode CPAP PS 5 ROOM AIR FiO2 40.0 % Blood Gas CPAP 5 cm H2O Blood Gas Specimen Comment RR GEORGE GOODWIN Test 10/17/24 04:02 Range/Units Prothrombin Time 11.9 H 9.6-11.6 SEC Prothromb Time International Ratio 1.11 0.85-1.15 Activated Partial Thromboplast Time 29.5 26.3-35.5 SEC Current Medications Medications (Trade) Dose Ordered Sig/Cassandra Route PRN Reason Start Time Stop Time Status Last Admin Dose Admin Acetaminophen (TYLenol 325MG TAB) 650 mg Q6H PRN PO FEVER/MILD PAIN LEVEL 1-3 10/16/24 04:30 10/18/24 20:20 DC Acetaminophen (TYLenol 650MG SUPPOSITORY) 650 mg Q6H PRN RC FEVER / MILD PAIN 1-3 IF NPO 10/16/24 04:30 10/18/24 20:20 DC Albuterol Sulfate (Proventil 0.083% 2.5mg/3ml) 2.5 mg [id number] IH 10/16/24 06:00 10/18/24 20:20 DC 10/18/24 19:12 2.5 MG Cefepime HCl (MAXipime 1 GM vial) 1 gm Q12H IVPB 10/16/24 05:00 10/17/24 10:34 DC 10/17/24 04:54 1 GM Docusate Sodium (COLace 100MG CAP) 100 mg BID PRN PO c 10/16/24 04:30 10/18/24 20:20 DC Enoxaparin Sodium (Lovenox) 30 mg BID SQ 10/16/24 21:00 10/18/24 20:20 DC 10/18/24 09:44 30 MG Furosemide (LASix 20MG VIAL) 20 mg Q12H IV 10/18/24 13:00 10/18/24 20:20 DC 10/18/24 17:25 20 MG Hydralazine HCl (APRESOLine 20MG INJ) 10 mg Q6H PRN IV SBP GREATER THAN 180 10/16/24 04:30 10/18/24 20:20 DC Insulin Human Regular (humuLIN R 100 UNIT/ML 3ML) INSULIN SLIDING SCAL... ACHS SQ 10/16/24 07:30 10/18/24 20:20 DC 10/18/24 17:28 10 UNIT Ipratropium Brandon (AtrovENT UD) 0.5 mg [id number] IH 10/16/24 06:00 10/18/24 20:20 DC 10/18/24 19:12 0.5 MG Lactulose (Constulose 20gm/ 30ml Udcup) 20 gm Q6H PRN PO CONSTIPATION 10/16/24 04:30 10/18/24 20:20 DC 10/18/24 10:35 20 GM Meropenem 1 gm/ Sodium Chloride 100 ml @ 33.333 mls/ hr Q12H IVPB 10/17/24 10:30 10/18/24 20:20 DC 10/18/24 09:41 33.333 MLS/HR Methylprednisolone Sodium Succinate (Solu-medROL 40MG) 40 mg Q12H IVP 10/17/24 17:00 10/18/24 20:20 DC 10/18/24 17:26 40 MG Methylprednisolone Sodium Succinate (Solu-medROL 40MG) 40 mg Q8H IVP 10/16/24 13:00 10/17/24 10:34 DC 10/17/24 04:55 40 MG Methylprednisolone Sodium Succinate (Solu-medROL 125MG) 60 mg Q8H IVP 10/16/24 04:30 10/16/24 12:47 DC 10/16/24 12:19 60 MG Miscellaneous Medication (Memantine HCl (Namenda)) 2 each [id number] PO 10/17/24 11:00 10/17/24 10:49 DC Miscellaneous Medication (Valproate Sodium (Valproic Acid)) 125 mg [id number] PO 10/17/24 11:00 10/17/24 10:49 DC Norepinephrine 250 ml @ 0 mls/hr PROTOCOL IV 10/16/24 03:30 10/18/24 20:20 DC 10/17/24 02:13 37.5 MLS/HR Ondansetron HCl (zoFRAN 4MG INJ) 4 mg Q6H PRN IVP NAUSEA/VOMITING 10/16/24 04:30 10/18/24 20:20 DC Pantoprazole Sodium (PROTonix 40MG INJ) 40 mg DAILY IVP 10/17/24 09:00 10/18/24 20:20 DC 10/18/24 09:41 40 MG Potassium Chloride (KCl 10% Elixir 20meq/15ml) 20 meq DAILY PO 10/19/24 13:00 10/18/24 20:20 DC Propofol (DIPRivan 1000MG/ 100ML) 1,000 mg PROTOCOL PRN IV SEDATION 10/16/24 03:30 10/18/24 20:20 DC 10/17/24 05:42 1,000 MG Sertraline HCl (ZOloft 50 mg tab) 50 mg DAILY PO 10/18/24 09:00 10/18/24 20:20 DC 10/18/24 09:41 50 MG Temazepam (restORIL 15 MG CAP) 15 mg HS PRN PO INSOMNIA/SLEEP 10/16/24 04:30 10/18/24 20:20 DC Vancomycin HCl 250 ml @ 125 mls/hr Q24H IV 10/17/24 05:00 10/17/24 10:35 DC 10/17/24 04:54 125 MLS/HR Vancomycin HCl (Vancomycin Protocol) 1 each AD IV 10/16/24 04:30 10/17/24 10:35 DC Wound Care/ Dressing Products (Venelex Ointment) 1 CRISTÓBAL AD TO WOUND ON L... TID TP 10/17/24 21:00 10/18/24 20:20 DC 10/18/24 17:26 1 GM Wound Care/ Dressing Products (Venelex Ointment) 1 gm TID TP 10/18/24 09:00 10/18/24 07:55 DC Diagnostics / Radiology: [COPY/PASTE HERE IF NO REPORTS PLEASE DELETE SECTION] Assessment: [ ] Plan: [ ] JADA PARSON [employer] Oct 18, 2024 21:42
[2024-10-19] MEDS ORDERED: PoTASSium chl 10% ELIXIR 20MEQ 20 MEQ/15 ML UDCUP PO SCH (13:00)
--- NOTE | 2024-10-20 22:35 | DS ---
Discharge Summary DIAGNOSE(S): [PROBLEM LIST: Acute hypoxic respiratory failure- Intubated in ED on 10/16 for airway protection given altered mental status GCS 6 Acute metabolic encephalopathy secondary to Septic shock secondary to acute complicated cystitis due to Proteus present on admission Septic shock Acute complicated cystitis Hyperglycemia in the setting of type 2 diabetes mellitus and iatrogenic from glucocorticoid Morbid obesity BMI of 40 Chronic right lung atelectasis dementia hyperlipidemia obesity Hypertensin Diabetes Mellitus type 2 chronic Kidney disease stage 2] HOSPITAL COURSE SUMMARY: [Patient was successfully extubated after initial intubation for respiratory failure and being at her baseline being discharged back to the nursing oral functional status is poor given advanced dementia] TUFTER HAND(S): [Critical care] PROCEDURE(S)/TREATMENT(S): [] PROBLEM(S): [] FOLLOW-UP TEST(S): [] DISCHARGE INSTRUCTIONS: [Complete antibiotic therapy as an outpatient with IV antibiotics at the [facility]] Home Meds Reported Medications Aspirin (ASPIRIN 81MG CHEW TAB) 81 Mg Tab.chew, 1 TAB PO DAILY for 30 Days, #30 TAB 0 Refills 10/16/24 Sertraline HCl (Sertraline HCl) 50 Mg Tablet, 1 TAB PO DAILY for 30 Days, #30 TAB 0 Refills 10/16/24 Famotidine (Famotidine) 20 Mg Tablet, 20 MG PO DAILY, TAB 10/16/24 Cholecalciferol (Vitamin D3) (Vitamin D3) 125 Mcg (5000 Unit) Capsule, 1 CAP PO DAILY for 30 Days, #30 CAP 0 Refills 10/16/24 Atorvastatin Calcium (LIPITOR) 10 Mg Tab, 1 TAB PO HS for 30 Days, #30 TAB 0 Refills 10/16/24 Insulin Regular, Human (Novolin R) 100 Unit/Ml Vial, 0 SQ ACHS, VIAL 10/16/24 Metformin HCl (Metformin HCl) 1,000 Mg Tablet, 1 TAB PO BID for 30 Days, #60 TAB 0 Refills 10/16/24 Memantine HCl (Namenda) 5 Mg (28)-10 Mg (21) Tab.ds.pk, 2 EACH PO [id number] 10/16/24 Valproate Sodium (Valproic Acid) 250 Mg/5 Ml Solution, 125 MG PO [id number], ML 10/16/24 Gabapentin (Gabapentin) 250 Mg/5 Ml (5 Ml) Solution, 250 MG PO [id number], ML 10/16/24 Azithromycin (Azithromycin) 250 Mg Tablet, 1 TAB PO AD for 4 Days, #6 TAB 0 Refills 2 the first day followed by 1 for days 2-5 10/16/24 Methylprednisolone (Medrol) 4 Mg Tab.ds.pk, 1 TAB PO AD for 6 Days, #21 TAB 0 Refills 6 on day 1 then reduce by one tablet daily until gone 10/16/24 Discontinued Reported Medications Triamcinolone Acetonide (Triamcinolone Acetonide) 0.1 % Cream.gm., 15 GM TP TID, APPL 05/05/24 Gabapentin (Gabapentin) 250 Mg/5 Ml Solution, 250 MG PO BID, ML 05/05/24 Aspirin (ASPIRIN 81MG CHEW TAB) 81 Mg Tab.chew, 81 MG PO DAILY, TAB.CHEW 05/05/24 Cholecalciferol (Vitamin D3) (Vitamin D3) 125 Mcg (5000 Unit) Tablet, 125 MCG PO DAILY, TAB 02/24/24 Metformin HCl (Metformin HCl) 1,000 Mg Tablet, 1000 MG PO BID, TAB 02/24/24 Lactulose (Lactulose) 10 Gram/15 Ml Solution, 30 ML PEG DAILY, ML 12/28/23 Polyethylene Glycol 3350 (Miralax) 17 Gram Powd.pack, 17 GM PEG DAILY PRN for CONSTIPATION 12/28/23 Sennosides (Senna) 8.6 Mg Tablet, 17.2 MG PEG BID, TAB 12/28/23 Magnesium Oxide (Magnesium Oxide) 400 Mg Magnesium Tablet, 400 MG PEG DAILY, TAB 12/28/23 Famotidine (Famotidine) 20 Mg Tablet, 20 MG PEG DAILY, TAB 12/28/23 Sertraline HCl (Zoloft) 50 Mg Tablet, 50 MG PEG DAILY, TAB 12/28/23 Divalproex Sodium (Depakote) 125 Mg Tablet.dr, 125 MG PEG BID, TAB 12/28/23 Ferrous Sulfate (Ferrous Sulfate) 220 Mg (44 Mg Iron)/5 Ml Elixir, 220 MG PEG DAILY, ML 12/28/23 Multivit &Minerals/Ferrous Fum (Multivitamin Liquid) 9 Mg Iron/15 Ml Liquid, 5 ML PEG DAILY 12/28/23 Guaifenesin/Dextromethorphan (Guaifenesin Dm Syrup) 100 Mg-10 Mg/5 Ml Syrup, 10 ML PEG [id number] PRN for COUGH, ML 12/28/23 Ascorbic Acid (Vitamin C) 500 Mg Powd.pack, 500 MG PEG BID 12/28/23 Atorvastatin Calcium (Atorvastatin Calcium) 10 Mg Tablet, 10 MG PO HS, TAB 10/03/22 Memantine HCl (Namenda) 10 Mg Tablet, 10 MG PO BID, TAB 10/03/22 SHAKILA JEWELL MD Oct 20, 2024 22:35
== END 2024-10-18 20:15 | DRG 871 ==
LOC: EDH 02:20 → EDHIP 03:56 → 2BH 06:26 → 2DH 10-17 17:30
PROVIDERS: ADMIT Internal Medicine; ATTEND Internal Medicine
PROC: 0BH17EZ Insertion of Endotracheal Airway into Trachea, Via Natural or Artificial Opening (ICD-10-PCS; principal; 2024-10-16)
PROC: 5A1935Z Respiratory Ventilation, Less than 24 Consecutive Hours (ICD-10-PCS; 2024-10-16)
DX: A41.9 Sepsis, unspecified organism (principal); E11.01 Type 2 diabetes mellitus with hyperosmolarity with coma; G93.41 Metabolic encephalopathy; J96.01 Acute respiratory failure with hypoxia; R65.21 Severe sepsis with septic shock; J18.9 Pneumonia, unspecified organism; N30.00 Acute cystitis without hematuria; Z68.41 Body mass index [BMI] 40.0-44.9, adult; J98.11 Atelectasis; J90 Pleural effusion, not elsewhere classified; I12.9 Hypertensive chronic kidney disease with stage 1 through stage 4 chronic kidney disease, or unspecified chronic kidney disease; N18.2 Chronic kidney disease, stage 2 (mild); E11.22 Type 2 diabetes mellitus with diabetic chronic kidney disease; E66.01 Morbid (severe) obesity due to excess calories; E78.00 Pure hypercholesterolemia, unspecified; F03.90 Unspecified dementia, unspecified severity, without behavioral disturbance, psychotic disturbance, mood disturbance, and anxiety; Z79.899 Other long term (current) drug therapy
CPT/HCPCS: 31500; 36415; 36600; 70450; 71045; 74018; 80048; 80053; 81001; 82140; 82435; 82550; 82803; 82947; 82948; 83605; 83735; 83880; 84100; 84132; 84295; 84443; 84484; 85018; 85025; 85378; 85610; 85730; 87040; 87071; 87086; 87186; 87205; 87635; 87804; 87880; 93005; 93880; 93970; 94002; 94003; 94640; 96375; 96376; 99285; C1751; C1894; G0378; J0692; J1650; J1815; J1940; J2185; J2470; J2543; J2704; J2919; J3370; J3490; Q9963; A4600